=== PATIENT | female | born 1995 | race Caucasian/White ===

== ENCOUNTER 2019-01-28 08:25 | Emergency (ER) | payer OTHER ==
--- NOTE | 2019-01-28 09:07 | EDPHYS ---
Physician Documentation [facility] Name: Janet Pyle Age: 23 yrs Sex: Female : 1995 Arrival Date: 01/28/2019 Time: 08:27 Bed 13 Private MD: ED Physician Blair Pereira HPI: 01/28 08:59 This 23 yrs old Female presents to ER via Ambulatory with complaints of edyta Cough, Vomiting. 08:59 The patient or guardian reports airway noise, cough. Onset: The symptoms/episode edyta began/occurred 3 day(s) ago. Severity of symptoms: At their worst the symptoms were mild, in the emergency department the symptoms are unchanged. Modifying factors: The symptoms are alleviated by nothing, the symptoms are aggravated by nothing. Associated signs and symptoms: The patient has no apparent associated signs or symptoms. The patient has not experienced similar symptoms in the past. 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 - Social history:: Smoking status: Patient/guardian denies using tobacco. - Ebola Screening: : Patient denies exposure to infectious person Patient denies travel to an Ebola-affected area in the 21 days before illness onset. - Family history:: not pertinent. ROS: 08:59 Constitutional: Negative for fever, chills, and weight loss, Eyes: Negative for injury, edyta pain, redness, and discharge, ENT: Negative for injury, pain, and discharge, Neck: Negative for injury, pain, and swelling, Cardiovascular: Negative for chest pain, palpitations, and edema, Back: Negative for injury and pain, : Negative for injury, bleeding, discharge, and swelling, MS/Extremity: Negative for injury and deformity, Skin: Negative for injury, rash, and discoloration, Neuro: Negative for headache, weakness, numbness, tingling, and seizure, Psych: Negative for depression, anxiety, suicide ideation, homicidal ideation, and hallucinations, Allergy/Immunology: Negative for hives, rash, and allergies, Endocrine: Negative for neck swelling, polydipsia, polyuria, polyphagia, and marked weight changes, Hematologic/Lymphatic: Negative for swollen nodes, abnormal bleeding, and unusual bruising. 08:59 Respiratory: Positive for cough. Exam: 08:59 Constitutional: This is a well developed, well nourished patient who is awake, alert, edyta and in no acute distress. Head/Face: Normocephalic, atraumatic. Eyes: Pupils equal round and reactive to light, extra-ocular motions intact. Lids and lashes normal. Conjunctiva and sclera are non-icteric and not injected. Cornea within normal limits. Periorbital areas with no swelling, redness, or edema. ENT: Nares patent. No nasal discharge, no septal abnormalities noted. Tympanic membranes are normal and external auditory canals are clear. Oropharynx with no redness, swelling, or masses, exudates, or evidence of obstruction, uvula midline. Mucous membranes moist. Neck: Trachea midline, no thyromegaly or masses palpated, and no cervical lymphadenopathy. Supple, full range of motion without nuchal rigidity, or vertebral point tenderness. No Meningismus. Chest/axilla: Normal chest wall appearance and motion. Nontender with no deformity. No lesions are appreciated. Cardiovascular: Regular rate and rhythm with a normal S1 and S2. No gallops, murmurs, or rubs. Normal PMI, no JVD. No pulse deficits. Abdomen/GI: Soft, non-tender, with normal bowel sounds. No distension or tympany. No guarding or rebound. No evidence of tenderness throughout. Back: No spinal tenderness. No costovertebral tenderness. Full range of motion. Skin: Warm, dry with normal turgor. Normal color with no rashes, no lesions, and no evidence of cellulitis. MS/ Extremity: Pulses equal, no cyanosis. Neurovascular intact. Full, normal range of motion. Neuro: Awake and alert, GCS 15, oriented to person, place, time, and situation. Cranial nerves II-XII grossly intact. Motor strength 5/5 in all extremities. Sensory grossly intact. Cerebellar exam normal. Normal gait. Psych: Awake, alert, with orientation to person, place and time. Behavior, mood, and affect are within normal limits. 08:59 Respiratory: the patient does not display signs of respiratory distress, Respirations: normal, Breath sounds: rhonchi, that are mild, Respiratory rate: 14 Vital Signs: 08:31 BP 133 / 86; Pulse 76; Resp 14; Temp 97.4(TE); Pulse Ox 99% on R/A; Weight 90.72 kg; ss Height 5 ft. 3 in. (160.02 cm); Pain 7/10; 08:31 Body Mass Index 35.43 (90.72 kg, 160.02 cm) ss MDM: 08:33 Patient medically screened. edyta Administered Medications: : Drug: Zithromax 500 mg Route: PO; ph 09:29 Follow up: Response: No adverse reaction ph 09:28 Drug: Zofran 4 mg Route: PO; ph 09:29 Follow up: Response: No adverse reaction ph Disposition: 01/28/19 09:06 Discharged to Home. Impression: Cough, Nausea and vomiting, Bronchitis, not specified as acute or chronic. - Condition is Stable. - Discharge Instructions: Acute Bronchitis, Adult, Upper Respiratory Infection, Adult, Upper Respiratory Infection, Adult, [id number], Cough, Adult, [id number], Cough, Adult. - Prescriptions for Bromfed DM 2- 30-10 mg/5 mL Oral syrup - take 10 milliliter by ORAL route every 6 hours; 160 milliliter. Zofran 4 mg Oral Tablet - take 1 tablet by ORAL route every 12 hours As needed; 20 tablet. Zithromax Z- Oswald 250 mg Oral Tablet - take 1 tablet by ORAL route as directed for 5 days Day 1 - take two (2) tablets one time. Day 2, 3, 4 , 5 take one (1) tablet once daily.; 6 tablet. - Medication Reconciliation Form, Thank You Letter, Antibiotic Education, Prescription Opioid Use, Work release form form. - Follow up: Private Physician; When: 2 - 3 days; Reason: Recheck today's complaints, Continuance of care, Re-evaluation by your physician. Follow up: Yury Esquivel MD; When: 2 - 3 days; Reason: Recheck today's complaints, Re-evaluation by your physician. - Problem is new. - Symptoms have improved. Signatures: Blair Pereira MD MD cha Smirch, Shelby, RN RN ss Camelia Dixon RN RN ph Corrections: (The following items were deleted from the chart) 09:29 09:06 01/28/2019 09:06 Discharged to Home. Impression: Cough; Nausea and vomiting; ph Bronchitis, not specified as acute or chronic. Condition is Stable. Forms are Medication Reconciliation Form, Thank You Letter, Antibiotic Education, Prescription Opioid Use. Follow up: Private Physician; When: 2 - 3 days; Reason: Recheck today's complaints, Continuance of care, Re-evaluation by your physician. Follow up: Yury Esquivel; When: 2 - 3 days; Reason: Recheck today's complaints, Re-evaluation by your physician. Problem is new. Symptoms have improved. edyta
--- NOTE | 2019-01-28 09:07 | ER ---
Nurse's Notes [facility] Name: Janet Pyle Age: 23 yrs Sex: Female : 1995 Arrival Date: 01/28/2019 Time: 08:27 Bed 13 Private MD: Diagnosis: Cough;Nausea and vomiting;Bronchitis, not specified as acute or chronic Presentation: 01/28 08:29 Presenting complaint: Patient states: cough, fatigue and chest tightness x 1 week. N/V ss that began 4 days ago. Denies fever/ abd pain. Transition of care: patient was not received from another setting of care. Onset of symptoms was January 21, 2019. Risk Assessment: Do you want to hurt yourself or someone else? Patient reports no desire to harm self or others. Initial Sepsis Screen: Does the patient meet any 2 criteria? No. Patient's initial sepsis screen is negative. Does the patient have a suspected source of infection? No. Patient's initial sepsis screen is negative. Care prior to arrival: None. 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 - Social history:: Smoking status: Patient/guardian denies using tobacco. - Ebola Screening: : Patient denies exposure to infectious person Patient denies travel to an Ebola-affected area in the 21 days before illness onset. - Family history:: not pertinent. Screenin:45 Abuse screen: Denies threats or abuse. Denies injuries from another. Nutritional ph screening: No deficits noted. Tuberculosis screening: No symptoms or risk factors identified. Fall Risk None identified. Assessment: 08:45 General: Appears in no apparent distress. comfortable, obese, Behavior is calm, ph cooperative, appropriate for age, Denies fever. Pain: Complains of pain in chest. Neuro: Level of Consciousness is awake, alert, obeys commands, Oriented to person, place, time, situation. Cardiovascular: Capillary refill < 3 seconds in bilateral fingers Patient's skin is warm and dry. Respiratory: Reports cough that is pain with cough Airway is patent Respiratory effort is even, unlabored, Respiratory pattern is regular, symmetrical, Breath sounds are coarse in mediastinum. GI: Abdomen is round non-distended, Reports nausea, vomiting, Patient currently denies abdominal pain, diarrhea. Derm: Skin is intact, is healthy with good turgor, Skin is pink, warm \T\ dry. Vital Signs: 08:31 BP 133 / 86; Pulse 76; Resp 14; Temp 97.4(TE); Pulse Ox 99% on R/A; Weight 90.72 kg; Height 5 ft. 3 in. (160.02 cm); Pain 7/10; 08:31 Body Mass Index 35.43 (90.72 kg, 160.02 cm) ED Course: 08:27 Patient arrived in ED. as 08:30 Triage completed. 08:31 Arm band placed on right wrist. 08:33 Blair Pereira MD is Attending Physician. [facility] 08:38 Camelia Dixon, BANDAR is Primary Nurse. ph 08:45 Patient has correct armband on for positive identification. Bed in low position. Call ph light in reach. 09:05 Yury Esquivel MD is Referral Physician. edyta 09:29 No provider procedures requiring assistance completed. Patient did not have IV access ph during this emergency room visit. Administered Medications: 09:28 Drug: Zithromax 500 mg Route: PO; ph 09:29 Follow up: Response: No adverse reaction ph 09:28 Drug: Zofran 4 mg Route: PO; ph 09:29 Follow up: Response: No adverse reaction ph Outcome: 09:06 Discharge ordered by . edyta 09:29 Patient left the ED. ph 09:29 Discharged to home ambulatory. ph 09:29 Condition: good 09:29 Discharge instructions given to patient, Instructed on discharge instructions, follow up and referral plans. medication usage, Demonstrated understanding of instructions, follow-up care, medications. Signatures: Blair Pereira MD MD cha Martinez, Amelia as Smirch, Shelby, RN RN Camelia Dixon RN RN ph
[2019-01-28 09:33] VITALS: BP 133/86; TEMP 97.4; O2SAT 99
[2019-01-28] MEDS ORDERED: ONDANSETRON 4 MG (ODT) TAB ONE (09:36)
[2019-01-28] MEDS ORDERED: AZITHROMYCIN 250 MG TAB ONE (09:36)
== END 2019-01-28 09:29 | disposition home or self-care (01) ==
LOC: ER 08:25
DX: J40 Bronchitis, not specified as acute or chronic (principal); R11.2 Nausea with vomiting, unspecified
CPT/HCPCS: 99283

== ENCOUNTER 2019-06-20 10:24 | Emergency (ER) | payer OTHER ==
--- OUTSIDE RECORDS SUMMARY | 2019-06-20 10:25 | XMS REPORT ---
:1995 [facility] Address [address] [place] [address] Dr. Shah [address] [place] [id number] Care Team Providers Name Role Phone Unavailable Unavailable Unavailable Problems This patient has no known problems. Allergies, Adverse Reactions, Alerts This patient has no known allergies or adverse reactions. Medications This patient has no known medications.
[2019-06-20] MEDS ORDERED: LIDOCAINE 1% MPF 5 ML VIAL ONE (11:04)
[2019-06-20] MEDS ORDERED: LIDOCAINE 1% W/EPI 1:100,000 MDV 20 ML VIAL ONE (11:17)
--- NOTE | 2019-06-20 11:37 | ER ---
Nurse's Notes [facility] Name: Janet Pyle Age: 24 yrs Sex: Female : 1995 Arrival Date: 06/20/2019 Time: 10:26 Bed 18 Private MD: Diagnosis: Laceration without foreign body of lower leg-right Presentation: 06/20 10:33 Presenting complaint: Patient states: cut R lower leg on mirror shard. Transition of care: patient was not received from another setting of care. Complicating Factors: There are no complicating factors for this patient. Onset of symptoms was June 20, 2019 at 10:00. Risk Assessment: Do you want to hurt yourself or someone else? Patient reports no desire to harm self or others. Initial Sepsis Screen: Does the patient meet any 2 criteria? No. Patient's initial sepsis screen is negative. Does the patient have a suspected source of infection? No. Patient's initial sepsis screen is negative. Care prior to arrival: None. 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 - Social history:: Smoking status: Patient/guardian denies using tobacco. - Ebola Screening: : Patient negative for fever greater than or equal to 101.5 degrees Fahrenheit, and additional compatible Ebola Virus Disease symptoms Patient denies exposure to infectious person Patient denies travel to an Ebola-affected area in the 21 days before illness onset No symptoms or risks identified at this time. Screenin:00 Abuse screen: Denies threats or abuse. Denies injuries from another. Nutritional hb screening: No deficits noted. Tuberculosis screening: No symptoms or risk factors identified. Fall Risk None identified. Assessment: 10:50 General: Appears in no apparent distress. Behavior is calm, cooperative. Pain: Pain hb currently is 5 out of 10 on a pain scale. Neuro: Level of Consciousness is awake, alert, obeys commands, Oriented to person, place, time, situation. Cardiovascular: Capillary refill < 3 seconds Patient's skin is warm and dry. Respiratory: Airway is patent Respiratory effort is even, unlabored, Respiratory pattern is regular, symmetrical. GI: No signs and/or symptoms were reported involving the gastrointestinal system. : No signs and/or symptoms were reported regarding the genitourinary system. EENT: No signs and/or symptoms were reported regarding the EENT system. Derm: Skin is pink, warm \T\ dry. Musculoskeletal: No signs and/or symptoms reported regarding the musculoskeletal system. Injury Description: Laceration sustained to right lower medial leg is was sustained 30-60 minutes ago. is bleeding a small amount. Vital Signs: 10:34 BP 125 / 78; Pulse 68; Resp 16; Temp 98.2; Pulse Ox 99% on R/A; Weight 86.18 kg; Height ch 5 ft. 3 in. (160.02 cm); Pain 5/10; 10:34 Body Mass Index 33.66 (86.18 kg, 160.02 cm) ED Course: 10:26 Patient arrived in ED. as 10:34 Triage completed. ch 10:34 Arm band placed on left wrist. Patient placed in an exam room, on a stretcher. 10:35 Blair aCmacho PA is PHCP. cp 10:35 Olman Zhou MD is Attending Physician. cp 10:54 Nanette Salazar, BANDAR is Primary Nurse. hb 11:00 Patient has correct armband on for positive identification. Bed in low position. Call hb light in reach. Side rails up X 1. 11:39 No provider procedures requiring assistance completed. Patient did not have IV access hb during this emergency room visit. Administered Medications: 11:03 Drug: Lidocaine-Epinephrine -1%: (1:100,000) 5 ml {Note: by MADONNA Pinto.} Volume: 20 ml; hb Route: Infiltration; 11:37 Follow up: Response: No adverse reaction hb Outcome: 11:35 Discharge ordered by . cp 11:47 Patient left the ED. hb Signatures: Lisa Juarez, RN RN Diya Mcwilliams as Blair Camacho PA PA cp Baxter, Heather, RN RN hb
--- NOTE | 2019-06-20 11:37 | EDPHYS ---
Physician Documentation [facility] Name: Janet Pyle Age: 24 yrs Sex: Female : 1995 Arrival Date: 06/20/2019 Time: 10:26 Bed 18 Private MD: ED Physician Olman Zhou HPI: 06/20 10:45 This 24 yrs old Female presents to ER via Ambulatory with complaints of cp Laceration To Foot. 10:45 The patient has a laceration occurred at home, and there are no complicating factors. cp The laceration(s) is(are) located on the medial aspect of right lower leg. Onset: The symptoms/episode began/occurred just prior to arrival. Associated signs and symptoms: Pertinent negatives: heavy bleeding, numbness distal to injury, suspected foreign body. Patient reports cutting right lower leg on sharp edge of broken glass. 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 - Social history:: Smoking status: Patient/guardian denies using tobacco. - Ebola Screening: : Patient negative for fever greater than or equal to 101.5 degrees Fahrenheit, and additional compatible Ebola Virus Disease symptoms Patient denies exposure to infectious person Patient denies travel to an Ebola-affected area in the 21 days before illness onset No symptoms or risks identified at this time. ROS: 10:50 Constitutional: Negative for body aches, chills, fever, poor PO intake. cp 10:50 Cardiovascular: Negative for chest pain. cp 10:50 Respiratory: Negative for cough, shortness of breath. 10:50 Abdomen/GI: Negative for abdominal pain, nausea and vomiting, diarrhea. 10:50 Skin: Positive for laceration(s), of the medial aspect of right lower leg. 10:50 All other systems are negative. Exam: 10:55 Constitutional: The patient appears in no acute distress, alert, awake, non-toxic, well cp developed, well nourished. 10:55 Head/Face: Normocephalic, atraumatic. cp 10:55 Skin: injury, laceration(s), the wound is approximately 4 cm(s), of the medial aspect of right lower leg, that can be described as clean, no foreign body, linear, with mild bleeding. Vital Signs: 10:34 BP 125 / 78; Pulse 68; Resp 16; Temp 98.2; Pulse Ox 99% on R/A; Weight 86.18 kg; Height ch 5 ft. 3 in. (160.02 cm); Pain 5/10; 10:34 Body Mass Index 33.66 (86.18 kg, 160.02 cm) ch Laceration: 11:34 Wound Repair of 4cm ( 1.6in ) subcutaneous laceration to right lower leg. Linear cp shaped.. Distal neuro/vascular/tendon intact. Anesthesia: Wound infiltrated with 5 mls of 1% lidocaine w/ Epi. Wound prep: Moderate cleansing by me, Wound irrigation by me. Skin closed with 4 4-0 Prolene using interrupted sutures and sterile technique. Dressed with Bacitracin, 4x4's. Patient tolerated well. MDM: 10:37 Patient medically screened. cp 11:34 Data reviewed: vital signs, nurses notes, and as a result, I will discharge patient. cp 11:34 Differential diagnosis: superficial laceration, tendon injury, vascular injury. cp Counseling: I had a detailed discussion with the patient and/or guardian regarding: the historical points, exam findings, and any diagnostic results supporting the discharge/admit diagnosis, the presence of at least one elevated blood pressure reading (>120/80) during this emergency department visit, to return to the emergency department if symptoms worsen or persist or if there are any questions or concerns that arise at home. Response to treatment: the patient's symptoms have markedly improved after treatment, and as a result, I will discharge patient. 06/20 10:59 Order name: Dressing - Wound; Complete Time: 11:37 cp 06/20 10:59 Order name: Gloves, Sterile; Complete Time: 11: cp 06/20 10:59 Order name: Setup Suture Tray; Complete Time: 11:05 cp Administered Medications: 11:03 Drug: Lidocaine-Epinephrine -1%: (1:100,000) 5 ml {Note: by MADONNA Pinto.} Volume: 20 ml; hb Route: Infiltration; 11:37 Follow up: Response: No adverse reaction hb Disposition: 12:00 Chart complete. cp 16:20 Co-signature as Attending Physician, Olman Zhou MD. rn Disposition: 06/20/19 11:35 Discharged to Home. Impression: Laceration without foreign body of lower leg - right. - Condition is Stable. - Discharge Instructions: Laceration Care, Adult. - Medication Reconciliation Form, Thank You Letter, Antibiotic Education, Prescription Opioid Use, Work release form form. - Follow up: Private Physician; When: 7 - 10 days; Reason: Staple/Suture removal. - Problem is new. - Symptoms have improved. Signatures: Lisa Juarez RN RN Olman Calix MD MD rn Blair Camacho PA PA cp Baxter, Heather, RN RN Corrections: (The following items were deleted from the chart) 11:47 11:35 06/20/2019 11:35 Discharged to Home. Impression: Laceration without foreign body hb of lower leg - right. Condition is Stable. Forms are Work release form, Medication Reconciliation Form, Thank You Letter, Antibiotic Education, Prescription Opioid Use. Follow up: Private Physician; When: 7 - 10 days; Reason: Staple/Suture removal. Problem is new. Symptoms have improved. cp
[2019-06-20 11:55] VITALS: BP 125/78; TEMP 98.2; O2SAT 99
== END 2019-06-20 11:47 | disposition home or self-care (01) ==
LOC: ER 10:24
PROC: 0JQN0ZZ Repair Right Lower Leg Subcutaneous Tissue and Fascia, Open Approach (ICD-10-PCS; principal; 2019-06-20)
DX: S81.811A Laceration without foreign body, right lower leg, initial encounter (principal); W25.XXXA Contact with sharp glass, initial encounter; Y93.9 Activity, unspecified; Y92.009 Unspecified place in unspecified non-institutional (private) residence as the place of occurrence of the external cause
CPT/HCPCS: 99282

== ENCOUNTER 2019-06-28 15:06 | Emergency (ER) | payer OTHER ==
--- OUTSIDE RECORDS SUMMARY | 2019-06-28 15:08 | XMS REPORT ---
:1995 Author Organization [facility] Address [address] [place] [address] Dr. Shah [address] [place] [id number] Care Team Providers Name Role Phone Unavailable Unavailable Unavailable Problems This patient has no known problems. Allergies, Adverse Reactions, Alerts This patient has no known allergies or adverse reactions. Medications This patient has no known medications.
--- NOTE | 2019-06-28 15:44 | ER ---
Nurse's Notes [facility] Name: Janet Pyle Age: 24 yrs Sex: Female : 1995 Arrival Date: 06/28/2019 Time: 15:09 Bed 9 Private MD: Diagnosis: Encounter for removal of sutures Presentation: 06/28 15:21 Presenting complaint: Sutures to right inner ankle 06/20, here for removal. Transition of hb care: patient was not received from another setting of care. Onset of symptoms was June 28, 2019. Risk Assessment: Do you want to hurt yourself or someone else? Patient reports no desire to harm self or others. Initial Sepsis Screen: Does the patient meet any 2 criteria? No. Patient's initial sepsis screen is negative. Does the patient have a suspected source of infection? No. Patient's initial sepsis screen is negative. Care prior to arrival: None. 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 - Social history:: Smoking status: Patient/guardian denies using tobacco. - Ebola Screening: : No symptoms or risks identified at this time. Screenin:50 Abuse screen: Denies threats or abuse. Nutritional screening: No deficits noted. aa5 Tuberculosis screening: No symptoms or risk factors identified. Fall Risk None identified. Assessment: 15:55 General: Appears comfortable, Behavior is calm, cooperative. Pain: Denies pain. Neuro: aa5 Level of Consciousness is awake, alert, obeys commands, Oriented to person, place, time, situation. Cardiovascular: Patient's skin is warm and dry. Respiratory: Airway is patent Respiratory effort is even, unlabored, Respiratory pattern is regular, symmetrical. GI: No signs and/or symptoms were reported involving the gastrointestinal system. : No signs and/or symptoms were reported regarding the genitourinary system. EENT: No signs and/or symptoms were reported regarding the EENT system. Derm: Skin is pink, warm \T\ dry. 4 sutures noted to right lower leg, no s/s of infection noted, edges well approximated. Musculoskeletal: Range of motion: intact in all extremities. 15:57 Reassessment: 4 sutures removed from right lower leg, pt tolerated well, dressed with aa5 Neosporin. . Vital Signs: 15:22 BP 110 / 81; Pulse 68; Resp 16; Temp 98.3; Pulse Ox 100% on R/A; Weight 81.65 kg; hb Height 5 ft. 3 in. (160.02 cm); Pain 0/10; 15:22 Body Mass Index 31.89 (81.65 kg, 160.02 cm) hb ED Course: 15:09 Patient arrived in ED. rg4 15:20 Blair Camacho PA is PHCP. cp 15:20 Olman Zhou MD is Attending Physician. cp 15:21 Triage completed. hb 15:22 Arm band placed on. hb 15:50 Patient has correct armband on for positive identification. aa5 15:50 No provider procedures requiring assistance completed. Patient did not have IV access aa5 during this emergency room visit. 15:54 Nicole Soni, RN is Primary Nurse. aa5 Administered Medications: No medications were administered Outcome: 15:43 Discharge ordered by MD. cp 15:59 Discharged to home ambulatory. aa5 15:59 Condition: stable 15:59 Discharge instructions given to patient, Instructed on discharge instructions, follow up and referral plans. wound care, Demonstrated understanding of instructions, follow-up care, wound care. 16:00 Patient left the ED. aa5 Signatures: Nicole Soni, RN RN aa5 Blair Camacho PA PA cp Baxter, Heather, RN RN Candida Dooley rg4 Corrections: (The following items were deleted from the chart) 16:45 16:08 Patient left the ED. aa5 aa5
--- NOTE | 2019-06-28 15:44 | EDPHYS ---
Physician Documentation [facility] Name: Janet Pyle Age: 24 yrs Sex: Female : 1995 Arrival Date: 06/28/2019 Time: 15:09 Bed 9 Private MD: ED Physician Olman Zhou HPI: 06/28 15:40 This 24 yrs old Female presents to ER via Ambulatory with complaints of cp Suture Removal. 15:40 The patient has sutures on the right lower leg. cp 15:40 Previous treatment: The patient was initially treated on June 20, 2019, the care cp was rendered at [facility], Treatment type: The patient's original treatment included sutures. Sutures/harinder progress: The patient has no c/o's. The wound is well-healing with no redness, swelling, discharge, or dehiscence reported. 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 - Social history:: Smoking status: Patient/guardian denies using tobacco. - Ebola Screening: : No symptoms or risks identified at this time. ROS: 15:41 Constitutional: Negative for body aches, chills, fever, poor PO intake. cp 15:41 Eyes: Negative for injury, pain, redness, and discharge. cp 15:41 Cardiovascular: Negative for chest pain. 15:41 Respiratory: Negative for cough, wheezing. 15:41 Abdomen/GI: Negative for abdominal pain, nausea, vomiting, and diarrhea. 15:41 Skin: Positive for laceration(s), of the right lower leg, Negative for abscesses, cellulitis. 15:41 All other systems are negative. Exam: 15:42 Constitutional: The patient appears in no acute distress, alert, awake, non-toxic, well cp developed, well nourished. 15:42 Head/Face: Normocephalic, atraumatic. cp 15:42 Skin: Wound recheck: Suture laceration closure: the wound is healing well, the edges are well approximated, no evidence of dehiscence, no drainage, no erythema, no swelling. Vital Signs: 15:22 BP 110 / 81; Pulse 68; Resp 16; Temp 98.3; Pulse Ox 100% on R/A; Weight 81.65 kg; hb Height 5 ft. 3 in. (160.02 cm); Pain 0/10; 15:22 Body Mass Index 31.89 (81.65 kg, 160.02 cm) hb MDM: 15:26 Patient medically screened. cp 15:43 Data reviewed: vital signs, nurses notes. cp 15:43 Counseling: I had a detailed discussion with the patient and/or guardian regarding: the cp historical points, exam findings, and any diagnostic results supporting the discharge/admit diagnosis, to return to the emergency department if symptoms worsen or persist or if there are any questions or concerns that arise at home. Response to treatment: the patient's symptoms have markedly improved after treatment. 06/28 15:43 Order name: Suture Removal; Complete Time: 16:08 cp Administered Medications: No medications were administered Disposition: 19:02 Co-signature as Attending Physician, Olman Zhou MD. rn Disposition: 06/28/19 15:43 Discharged to Home. Impression: Encounter for removal of sutures. - Condition is Stable. - Discharge Instructions: Suture Removal, Care After. - Medication Reconciliation Form, Thank You Letter, Antibiotic Education, Prescription Opioid Use form. - Follow up: Private Physician; When: 2 - 3 days; Reason: Worsening of condition. - Problem is new. - Symptoms have improved. Signatures: Olman Zhou MD MD rn Calderon, Audri, RN RN aa5 Blair Camacho PA PA cp Nanette Salazar RN RN Corrections: (The following items were deleted from the chart) 16:08 15:43 06/28/2019 15:43 Discharged to Home. Impression: Encounter for removal of aa5 sutures. Condition is Stable. Forms are Medication Reconciliation Form, Thank You Letter, Antibiotic Education, Prescription Opioid Use. Follow up: Private Physician; When: 2 - 3 days; Reason: Worsening of condition. Problem is new. Symptoms have improved. cp
[2019-06-28 16:17] VITALS: BP 110/81; TEMP 98.3; O2SAT 100
== END 2019-06-28 16:08 | disposition home or self-care (01) ==
LOC: ER 15:06
DX: Z48.02 Encounter for removal of sutures (principal)
CPT/HCPCS: 99281

== ENCOUNTER 2020-08-15 14:03 | Emergency (ER) | payer OTHER ==
--- OUTSIDE RECORDS SUMMARY | 2020-08-15 14:05 | XMS REPORT | Continuity of Care Document ---
:1995 Author Organization [facility] t Address [address] [place] [address] Care Team Providers Name Role Phone Visit, Nurse Attending Clinician Unavailable Emily Cook Attending Clinician Mckayla Ann Attending Clinician Po, [facility] Attending Clinician Unavailable Problems This patient has no known problems. Allergies, Adverse Reactions, Alerts This patient has no known allergies or adverse reactions. Medications This patient has no known medications. Procedures This patient has no known procedures. Encounters Start End Encounter Admission Attending Care Care Encounter Source Date/Time Date/Time Type Type Clinicians Facility Department ID 2020-04-21 2020-04-21 Nurse Visit, [facility] [id number] 09:44:13 09:59:13 [facility] [id number] Nurse [facility] [id number] MATERNAL [id number] & CHILD 107 [facility] 2020-01-30 2020-01-30 Angelia Rose RIMIKAELA [id number] 00:00:00 00:00:00 Kirstie Diaz [employer] [id number] [facility] [id number] MATERNAL [id number] & CHILD 107 [facility] 2020-01-17 2020-01-17 Telephone Graciela RIMIKAELA [id number] 00:00:00 00:00:00 [facility] [id number] [place] [id number] [facility] [id number] Primary & 370 Specialty Care 2020-01-17 2020-01-17 Telephone Graciela, [facility] [id number] 00:00:00 00:00:00 Tonja [facility] [id number] [place] [id number] [facility] [id number] Primary & 370 Specialty Care 2020-01-15 2020-01-15 Urgent Pob1, Acute [facility] [id number] 10:46:12 11:06:12 Care Care [facility] [id number] [place] [id number] Professio [id number] nal [address] 2020-01-15 2020-01-15 Telephone Pob1, Acute [facility] [id number] 00:00:00 00:00:00 Care [facility] [id number] [place] [id number] Professio [phone] nal 044 Office Building [facility] 2020-01-07 2020-01-07 [facility]phone [facility] [id number] 00:00:00 00:00:00 Kirstie N [facility] [employer] [id number] REGIONAL [id number] MATERNAL [id number] & CHILD 107 [facility] 2020-01-05 2020-01-05 [facility]phone [facility] [id number] 00:00:00 00:00:00 Kirstie N [employer] [id number] [facility] [id number] MATERNAL [phone] & CHILD 107 [facility] 2019-12-11 2019-12-11 Telephone [facility] [id number] 00:00:00 00:00:00 Kirstie N [employer] [id number] REGIONAL [id number] MATERNAL [id number] & CHILD 107 [facility] 2019-12-02 2019-12-02 Telephone [facility] [id number] 00:00:00 00:00:00 Kirstie N [employer] [id number] REGIONAL [id number] MATERNAL [id number] & CHILD 107 [facility] 2019-11-29 2019-11-29 Office ITALO Rose [id number] 13:03:57 14:20:38 Visit Kirstie Diaz [employer] [id number] [facility] [id number] MATERNAL [id number] & CHILD 107 [facility] Results This patient has no known results.
[2020-08-15] MEDS ORDERED: KETOROLAC 30 MG/ML INJ ONE (15:37)
--- NOTE | 2020-08-15 15:40 | ER ---
Nurse's Notes [facility] Name: Janet Pyle Age: 25 yrs Sex: Female : 1995 Arrival Date: 08/15/2020 Time: 14:04 Bed 2 Private MD: Diagnosis: Dorsalgia, unspecified Presentation: 08/15 14:34 Chief complaint: Patient states: generalized back pain that radiates under right breast ss and up to head that causes a headache. Pain began yesterday. Coronavirus screen: Client denies travel out of the [place] in the last 14 days. Ebola Screen: Patient denies exposure to infectious person. Patient denies travel to an Ebola-affected area in the 21 days before illness onset. Initial Sepsis Screen: Does the patient meet any 2 criteria? No. Patient's initial sepsis screen is negative. Does the patient have a suspected source of infection? No. Patient's initial sepsis screen is negative. Risk Assessment: Do you want to hurt yourself or someone else? Patient reports no desire to harm self or others. Onset of symptoms was August 14, 2020. 14:34 Method Of Arrival: Ambulatory ss 14:34 Acuity: TORI 3 ss Historical: - Allergies: 14:57 NKDA; ss - Home Meds: 14:57 None [Active]; ss - PMHx: 14:57 None; ss - PSHx: 14:57 None; ss - Immunization history:: Adult Immunizations up to date. - Social history:: Smoking status: Patient denies any tobacco usage or history of. Screenin:34 Abuse screen: Denies threats or abuse. Denies injuries from another. Nutritional ss screening: No deficits noted. Tuberculosis screening: Never had TB. Fall Risk None identified. Vital Signs: 14:34 BP 116 / 67; Pulse 87; Resp 14; Temp 97.4(TE); Pulse Ox 100% on R/A; Weight 86.18 kg; ss Height 5 ft. 3 in. (160.02 cm); Pain 7/10; 15:34 BP 111 / 84; Pulse 74; Resp 15; Temp 97.6(O); Pulse Ox 100% on R/A; mh5 14:34 Body Mass Index 33.66 (86.18 kg, 160.02 cm) ED Course: 14:04 Patient arrived in ED. ag5 14:13 Blair Camacho PA is PHCP. cp 14:13 Blair Pereira MD is Attending Physician. cp 14:34 Amanda Coker RN is Primary Nurse. ss 14:57 Triage completed. ss 14:57 Arm band placed on right wrist. ss 15:14 XRAY Chest (1 view) In Process Unspecified. EDMS 15:34 Patient has correct armband on for positive identification. Bed in low position. Call mh5 light in reach. Side rails up X 1. Warm blanket given. Pulse ox on. NIBP on. 15:58 No provider procedures requiring assistance completed. Patient did not have IV access ss during this emergency room visit. Administered Medications: 15:30 Drug: TORadol 60 mg Route: IM; Site: left gluteus; ss 16:00 Follow up: Response: No adverse reaction; Pain is decreased ss Outcome: 15:39 Discharge ordered by MD. cp 15:58 Discharged to home ambulatory. ss 15:58 Condition: improved 15:58 Discharge instructions given to patient, family, Instructed on discharge instructions, follow up and referral plans. medication usage, Demonstrated understanding of instructions, follow-up care, medications, Prescriptions given X 2. 16:00 Patient left the ED. ss Signatures: Dispatcher [employer] [facility] Amanda Coker RN RN Blair Camacho PA PA cp Martinez, Maria 5 Alma Delia, [facility]
--- NOTE | 2020-08-15 15:40 | EDPHYS ---
Physician Documentation [facility] Name: Janet Pyle Age: 25 yrs Sex: Female : 1995 Arrival Date: 08/15/2020 Time: 14:04 Bed 2 Private MD: ED Physician Blair Pereira HPI: 08/15 14:36 This 25 yrs old Female presents to ER via Unassigned with complaints of Back cp Pain. 14:36 The patient presents with pain that is acute, with no known mechanism of injury. The cp symptoms are located in the "all over". Onset: The symptoms/episode began/occurred yesterday. The pain radiates to the left side of chest below breast. Associated signs and symptoms: Pertinent positives: shortness of breath, Pertinent negatives: abdominal pain, headache, numbness, tingling, weakness. The problem was sustained from unknown cause. Historical: - Allergies: 14:57 NKDA; ss - Home Meds: 14:57 None [Active]; ss - PMHx: 14:57 None; ss - PSHx: 14:57 None; ss - Immunization history:: Adult Immunizations up to date. - Social history:: Smoking status: Patient denies any tobacco usage or history of. ROS: 14:40 Constitutional: Negative for body aches, chills, fever, poor PO intake. cp 14:40 Eyes: Negative for injury, pain, redness, and discharge. cp 14:40 ENT: Negative for ear pain, sore throat, difficulty swallowing, difficulty handling secretions. 14:40 Neck: Negative for pain with movement, pain at rest, stiffness. 14:40 Cardiovascular: Negative for chest pain, edema, palpitations. 14:40 Respiratory: Negative for cough, shortness of breath, wheezing. 14:40 Abdomen/GI: Negative for abdominal pain, nausea, vomiting, and diarrhea. 14:40 Back: Positive for pain at rest, pain with movement, of the "all over". 14:40 : Negative for urinary symptoms. 14:40 Skin: Negative for rash. 14:40 Neuro: Positive for headache, Negative for altered mental status, weakness. 14:40 All other systems are negative. Exam: 14:45 Constitutional: The patient appears in no acute distress, alert, awake, comfortable, cp non-toxic, well developed, well nourished. 14:45 Head/Face: Normocephalic, atraumatic. cp 14:45 Eyes: Periorbital structures: appear normal, Conjunctiva: normal, no exudate, no injection, Sclera: no appreciated abnormality, Lids and lashes: appear normal, bilaterally. 14:45 ENT: External ear(s): are unremarkable, Nose: is normal, Mouth: Lips: moist, Oral mucosa: moist, Posterior pharynx: is normal, airway is patent. 14:45 Neck: ROM/movement: is normal, is supple, without pain, no range of motions limitations. 14:45 Chest/axilla: Inspection: normal, Palpation: is normal, no crepitus, no tenderness. 14:45 Cardiovascular: Rate: normal, Rhythm: regular, Edema: is not appreciated, JVD: is not appreciated. 14:45 Respiratory: the patient does not display signs of respiratory distress, Respirations: normal, no use of accessory muscles, no retractions, labored breathing, is not present, Breath sounds: are clear throughout, no decreased breath sounds. 14:45 Abdomen/GI: Exam negative for discomfort, distension, guarding, Inspection: abdomen appears normal. 14:45 Back: pain, that is moderate, of the diffuse, ROM is normal, muscle spasm, is not present. 14:45 Neuro: Orientation: to person, place \\T\\ time. Mentation: is normal, Motor: moves all fours, strength is normal, Sensation: is normal, Gait: is steady, at a normal pace, without difficulty. Vital Signs: 14:34 BP 116 / 67; Pulse 87; Resp 14; Temp 97.4(TE); Pulse Ox 100% on R/A; Weight 86.18 kg; ss Height 5 ft. 3 in. (160.02 cm); Pain 7/10; 15:34 BP 111 / 84; Pulse 74; Resp 15; Temp 97.6(O); Pulse Ox 100% on R/A; mh5 14:34 Body Mass Index 33.66 (86.18 kg, 160.02 cm) ss MDM: 14:22 Patient medically screened. edyta 14:45 Differential diagnosis: Pyelonephritis Ureterolithiasis strain, muscle spasm. cp 15:19 Test interpretation: by ED physician or midlevel provider: chest xray negative for cp infiltrates. 15:38 Data reviewed: vital signs, nurses notes, radiologic studies, plain films. 15:38 Counseling: I had a detailed discussion with the patient and/or guardian regarding: the cp historical points, exam findings, and any diagnostic results supporting the discharge/admit diagnosis, radiology results, the need for outpatient follow up, a family practitioner, to return to the emergency department if symptoms worsen or persist or if there are any questions or concerns that arise at home. Response to treatment: the patient's symptoms have mildly improved after treatment, and as a result, I will discharge patient. 08/15 14:36 Order name: XRAY Chest (1 view) 08/15 14:36 Order name: Urine Dipstick-Ancillary (obtain specimen); Complete Time: 15:23 cp 08/15 14:36 Order name: Urine Test (obtain specimen); Complete Time: 15:23 cp Administered Medications: 15:30 Drug: TORadol 60 mg Route: IM; Site: left gluteus; 16:00 Follow up: Response: No adverse reaction; Pain is decreased ss Disposition: 08/16 14:40 Co-signature as Attending Physician, Blair Pereira MD I agree with the assessment and edyta plan of care. Disposition: 08/15/20 15:39 Discharged to Home. Impression: Dorsalgia, unspecified. - Condition is Stable. - Discharge Instructions: Back Pain, Adult. - Prescriptions for Cyclobenzaprine 10 mg Oral Tablet - take 1 tablet by ORAL route every 8 hours As needed no driving while taking medication; 20 tablet. Diclofenac Sodium 75 mg Oral Tablet Sustained Release - take 1 tablet by ORAL route 2 times per day; 30 tablet. - Work release form, Medication Reconciliation Form, Thank You Letter, Antibiotic Education, Prescription Opioid Use form. - Follow up: Private Physician; When: 2 - 3 days; Reason: Recheck today's complaints. - Problem is new. - Symptoms have improved. Signatures: Dispatcher [employer] Blair Toney MD MD cha Smirch, Shelby, RN RN ss Blair Camacho PA PA cp Corrections: (The following items were deleted from the chart) 08/15 14:59 14:45 Chest Single View ordered. [facility] 16:00 15:39 08/15/2020 15:39 Discharged to Home. Impression: Dorsalgia, unspecified. ss Condition is Stable. Forms are Medication Reconciliation Form, Thank You Letter, Antibiotic Education, Prescription Opioid Use. Follow up: Private Physician; When: 2 - 3 days; Reason: Recheck today's complaints. Problem is new. Symptoms have improved. cp
--- NOTE | 2020-08-15 15:45 | RAD REPORT ---
EXAM DESCRIPTION: [place] Single View08/15/2020 3:13 pm CLINICAL HISTORY: Shortness of breath COMPARISON: 2015 FINDINGS: The lungs appear clear of acute infiltrate. The heart is normal size IMPRESSION: No acute abnormalities displayed
[2020-08-15 16:15] VITALS: O2SAT 100
[2020-08-15 16:17] VITALS: BP 111/84; TEMP 97.6
== END 2020-08-15 16:00 | disposition home or self-care (01) ==
LOC: ER 14:03
DX: M54.9 Dorsalgia, unspecified (principal)
CPT/HCPCS: 71045; 96372; 99284

== ENCOUNTER 2021-05-01 15:46 | Emergency (ER) | payer OTHER ==
--- OUTSIDE RECORDS SUMMARY | 2021-05-01 15:50 | XMS REPORT | Continuity of Care Document ---
:[address] [facility] t Address [address] [place] [address] Care Team Providers Name Role Phone Elisabet Cortes Attending Clinician Cricket Attending Clinician [phone] Problems This patient has no known problems. Allergies, Adverse Reactions, Alerts This patient has no known allergies or adverse reactions. Medications This patient has no known medications. Procedures This patient has no known procedures. Encounters Start End Encounter Admission Attending Care Care Encounter Source Date/Time Date/Time Type Type Clinicians Facility Department ID 2021-02-08 2021-02-08 Office ITALO Laurent [id number] 15:20:35 16:19:56 Visit Melanie Bhandari BODY PRESS OPERATOR [id number] [facility] [id number] MATERNAL [id number] & CHILD [address] [place] [address] 2021-01-27 2021-01-27 [facility] [id number] 00:00:00 00:00:00 Tanya [id number] 2021-01-27 2021-01-27 [facility] [id number] 00:00:00 00:00:00 Tanya [id number] 2021-01-27 2021-01-27 [facility] [id number] 00:00:00 00:00:00 Tanya [id number] 2021-01-04 2021-01-04 Outpatient [facility], [facility] [id number] 00:00:00 00:00:00 Tanya [id number] Results This patient has no known results.
[2021-05-01] MEDS ORDERED: HYDROCODONE/APAP 5/325 MG TAB ONE (18:09)
--- NOTE | 2021-05-01 18:31 | RAD REPORT ---
EXAM DESCRIPTION: RAD - Knee Right 3 View - 05/01/2021 6:07 pm CLINICAL HISTORY: PAIN COMPARISON: No comparisons FINDINGS: No right knee fracture malalignment. No knee effusion IMPRESSION: No knee fracture identified.
--- NOTE | 2021-05-01 18:42 | ER ---
Nurse's Notes [facility] Name: Janet Pyle Age: 26 yrs Sex: Female : 1995 Arrival Date: 05/01/2021 Time: 15:49 Bed Waiting Private MD: Diagnosis: Unspecified internal derangement of right knee Presentation: 05/01 15:57 Chief complaint: Patient states: R knee pain since last night after sliding into 2nd ll1 during a softball game. PMS intact. Coronavirus screen: Client denies travel out of the [place] in the last 14 days. At this time, the client does not indicate any symptoms associated with coronavirus-19. Ebola Screen: Patient denies travel to an Ebola-affected area in the 21 days before illness onset. Initial Sepsis Screen: Does the patient meet any 2 criteria? No. Patient's initial sepsis screen is negative. Does the patient have a suspected source of infection? Yes: Bone or joint infection. Risk Assessment: Do you want to hurt yourself or someone else? Patient reports no desire to harm self or others. Onset of symptoms was April 30, 2021. 15:57 Method Of Arrival: Ambulatory ll1 15:57 Acuity: TORI 4 ll1 Triage Assessment: 16:00 General: Appears in no apparent distress. Behavior is calm, cooperative, appropriate ll1 for age. Pain: Complains of pain in R knee Quality of pain is described as aching, Aggravated by increased activity. Musculoskeletal: Circulation, motion, and sensation intact. Capillary refill < 3 seconds, Tenderness present in R knee Reports pain in R knee. Injury Description: Bruise. CREDIT INTERN: 19:00 LMP N/A - control method ll1 Historical: - Allergies: 15:56 No Known Drug Allergies; ll1 - PMHx: 15:56 None; ll1 - PSHx: 15:56 None; ll1 - Immunization history:: Client reports having NOT received the Covid vaccine. Flu vaccine is up to date. - Social history:: Smoking status: Patient denies any tobacco usage or history of. Screenin:43 Abuse screen: Denies threats or abuse. Nutritional screening: No deficits noted. ll1 Tuberculosis screening: No symptoms or risk factors identified. 17:44 Fall Risk Secondary diagnosis (15 points) impaired mobility, Gait- Impaired (20 pts.). ll1 Total Kramer Fall Scale indicates Low Risk Score (25-44 pts). Fall prevention measures have been instituted. Side Rails Up X 2 Frequent Obs/Assesments occuring As available Patient and Family Educated on Fall Prevention Program and strategies. Assessment: 17:44 Reassessment: No changes from previously documented assessment. Patient and/or family ll1 updated on plan of care and expected duration. Pain level reassessed. Patient is alert, oriented x 3, equal unlabored respirations, skin warm/dry/pink. 18:59 Musculoskeletal: Circulation, motion, and sensation intact. Capillary refill < 3 ll1 seconds. Vital Signs: 15:57 BP 125 / 77; Pulse 76; Resp 17; Temp 97.4; Pulse Ox 100% ; Weight 90.72 kg; Height 5 ll1 ft. 3 in. (160.02 cm); Pain 9/10; 15:57 Body Mass Index 35.43 (90.72 kg, 160.02 cm) ll1 ED Course: 15:49 Patient arrived in ED. mr 15:56 Arm band placed on. ll1 15:58 Triage completed. ll1 15:59 Quinn Gould NP is PHCP. pm1 15:59 Olman Zhou MD is Attending Physician. pm1 17:42 Kenneth Multani, BANDAR is Primary Nurse. ll1 17:43 Patient has correct armband on for positive identification. Bed in low position. Call ll1 light in reach. Side rails up X 1. Cardiac monitoring not applicable on this patient. 18:07 Knee Right 3 View XRAY In Process Unspecified. EDMS 18:59 Knee immobilizer applied on right knee. ll1 19:00 No provider procedures requiring assistance completed. Patient did not have IV access ll1 during this emergency room visit. Administered Medications: 17:49 Drug: HYDROcodone-acetaminophen 5 mg-325 mg 1 tabs Route: PO; ll1 18:59 Follow up: Response: No adverse reaction; Pain is decreased; RASS: Alert and Calm (0) ll1 Outcome: 18:42 Discharge ordered by . rn 19:00 Discharged to home ambulatory. ll1 19:00 Condition: stable 19:00 Discharge instructions given to patient, Instructed on discharge instructions, follow up and referral plans. medication usage, crutch walking, Demonstrated understanding of instructions, follow-up care, medications, crutch walking, splint care, Prescriptions given X 1. 19:01 Patient left the ED. ll1 Signatures: Dispatcher [employer] EDShila Gil, MD MD bandar Thurman Patrick, PATRICK INDUSTRIAL RELATIONS MANAGER pm1 Kenneth Multani RN RN ll1
--- NOTE | 2021-05-01 18:42 | EDPHYS ---
Physician Documentation [facility] Name: Janet Pyle Age: 26 yrs Sex: Female : 1995 Arrival Date: 05/01/2021 Time: 15:49 Bed Waiting Private MD: ED Physician Olman Zhou HPI: 05/01 17:47 This 26 yrs old Female presents to ER via Ambulatory with complaints of Knee pm1 Injury. 17:47 The patient presents with pain, that is acute. The complaints affect the right knee. pm1 Context: The problem was sustained at a sports field or court, resulted from landed on her right knee as she tried to slide to a base, the patient can fully bear weight, the patient is able to ambulate, with moderate difficulty, Problem is a result from a previous injury: No. Onset: The symptoms/episode began/occurred yesterday. Modifying factors: the symptoms are aggravated by weight bearing, bending knee. Associated signs and symptoms: Pertinent positives: swelling, Pertinent negatives calf tenderness, numbness, tingling. Treatment prior to arrival includes: no previous treatment. Severity of symptoms: in the emergency department the symptoms are unchanged. The patient has not experienced similar symptoms in the past. The patient has not recently seen a physician. 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 Flu vaccine is up to date. - Social history:: Smoking status: Patient denies any tobacco usage or history of. ROS: 17:47 Constitutional: Negative for fever, chills, and weight loss. pm1 17:47 Cardiovascular: Negative for chest pain, palpitations, and edema, Respiratory: Negative for shortness of breath, cough, wheezing, and pleuritic chest pain, Abdomen/GI: Negative for abdominal pain, nausea, vomiting, diarrhea, and constipation. 17:47 Skin: Negative for injury, rash, and discoloration, Neuro: Negative for headache, weakness, numbness, tingling, and seizure. 17:47 MS/extremity: Positive for decreased range of motion, pain, swelling, tenderness, of the right knee, Negative for deformity. Exam: 17:47 Constitutional: This is a well developed, well nourished patient who is awake, alert, pm1 and in no acute distress. Head/Face: Normocephalic, atraumatic. 17:47 Skin: Warm, dry with normal turgor. Normal color with no rashes, no lesions, and no evidence of cellulitis. 17:47 Eyes: Exam is negative for acute changes, Extraocular movements: intact throughout, Conjunctiva: no acute changes, no injection. 17:47 ENT: Mouth: Lips: normal, Oral mucosa: normal, pink and intact, moist. 17:47 Cardiovascular: Rate: normal, Rhythm: regular, Pulses: no pulse deficits are appreciated. 17:47 Respiratory: Exam negative for acute changes, respiratory distress, shortness of breath. 17:47 Musculoskeletal/extremity: Extremities: grossly normal except: noted in the right knee: Decreased ROM with flexion due to pain. Tenderness bilaterally below the patella. Pain with rotation of lower right leg medially and laterally, Circulation is intact in all extremities. 17:47 Neuro: Exam negative for acute changes, Orientation: is normal, Mentation: is normal, Motor: is normal, moves all fours. Vital Signs: 15:57 BP 125 / 77; Pulse 76; Resp 17; Temp 97.4; Pulse Ox 100% ; Weight 90.72 kg; Height 5 ll1 ft. 3 in. (160.02 cm); Pain 9/10; 15:57 Body Mass Index 35.43 (90.72 kg, 160.02 cm) ll1 MDM: 16:33 Patient medically screened. pm1 17:52 Data reviewed: vital signs. Data interpreted: Pulse oximetry: on room air is 100 %. pm1 Interpretation: normal. 05/01 16:52 Order name: Knee Right 3 View XRAY; Complete Time: 18:41 pm1 05/01 17:46 Order name: Crutches; Complete Time: 18:59 pm1 05/01 17:46 Order name: Knee Immobilizer; Complete Time: 18:59 pm1 Administered Medications: 17:49 Drug: HYDROcodone-acetaminophen 5 mg-325 mg 1 tabs Route: PO; ll1 18:59 Follow up: Response: No adverse reaction; Pain is decreased; RASS: Alert and Calm (0) ll1 Disposition: 18:41 Co-signature as Attending Physician, Olman Zhou MD I agree with the assessment and rn plan of care. Disposition Summary: 05/01/21 18:42 Discharge Ordered Location: Home rn Problem: new rn Symptoms: have improved rn Condition: Stable rn Diagnosis - Unspecified internal derangement of right knee rn Followup: pm1 - With: Emergency Department - When: As needed - Reason: Worsening of condition Followup: pm1 - With: Private Physician - When: 2 - 3 days - Reason: Recheck today's complaints, Continuance of care, Re-evaluation by your physician Discharge Instructions: - Discharge Summary Sheet pm1 - Crutch Use, Adult pm1 - How to Use a Knee Immobilizer pm1 - Acute Knee Pain, Adult pm1 Forms: - Medication Reconciliation Form rn - Thank You Letter rn - 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
[2021-05-01 19:10] VITALS: BP 125/77; TEMP 97.4; O2SAT 100
== END 2021-05-01 19:01 | disposition home or self-care (01) ==
LOC: ER 15:46
DX: M23.91 Unspecified internal derangement of right knee (principal); X58.XXXA Exposure to other specified factors, initial encounter; Y93.64 Activity, baseball; Y92.328 Other athletic field as the place of occurrence of the external cause
CPT/HCPCS: 99284

== ENCOUNTER 2021-11-27 12:30 | Emergency (ER) | payer OTHER ==
--- OUTSIDE RECORDS SUMMARY | 2021-11-27 12:37 | XMS REPORT | Continuity of Care Document ---
:1995 Author Organization [facility] t Address [address] [place] [address] Care Team Providers Name Role Phone CRICKET_S Attending Clinician Unavailable Cricket Attending Clinician [phone] Arabella NELSON Attending Clinician Unavailable Mehran OG C Attending Clinician Elisabet LAURENT Attending Clinician Unavailable Doctor Unassigned, Name Attending Clinician Unavailable Lloyd Godwin DO Attending Clinician YandySheba Simmons Attending Clinician Visit, Nurse Attending Clinician Unavailable Lab, Fam Pob I Attending Clinician Unavailable Gabino Ann Attending Clinician Gabino WATKINS Attending Clinician Unavailable Emily Cook Attending Clinician Pob1, Care Clinic Attending Clinician Unavailable Emily KOCH Attending Clinician Unavailable Sindy Grant Attending Clinician CRICKET_S Admitting Clinician Unavailable Payers Payer Name Policy Type Policy Number Effective Date Expiration Date Graham zapata [facility] [id number] 2020 CHOICE MEDICAID 00:00:00 [facility] [id number] [facility] (MEDICAID REPLACEMENT - HMO) [facility] [id number] 2019 [facility] 00:00:00 [facility] 3 SHARE PROGRAM (HMO) Advance Directives Directive Decision Effective Termination Comments Source Date Date Healthcare Agents on N/A [facility] Medical RelationshipCommunicationHeather Branch [facility] Care [phone] (Home) Problems Condition Condition Condition Status Onset Resolution Last Treating Co mments Source Name Details Category Date Date Treatment Clinician Date History of History of Disease Active U nivers herpes herpes 4-26 [place] Other Other Disease Active Overview: Peggy isbell general general 1-04 Removed [place] of counseling [place] and advice and advice 00 10/2020 Me dical for for placed Branch contracept contracept 09/2020 edmi demi management management 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, ity o f cell cell 00:00: [facility] [place] changes of changes of 00 repeat Me dical undetermin undetermin pap in Br anch ed ed 2020 significan significan ce (ASCUS) ce (ASCUS) on vaginal on vaginal cytology cytology Placental Placental Disease Active 2016-10 Uni vers abruption abruption 0-29 ity of with with 00:00: [place] coagulatio coagulatio 00 Me dical n defect, n defect, Bran ch delivered delivered Preeclamps Preeclamps Disease Active 2016-10 U nivers ia, ia, 0-27 ity of severe, severe, 00:00: [place] third third 00 Medical trimester trimester Bran ch Liver Liver Disease Active 2016-10 Univers disorder disorder 0-26 ity of during during 00:00: [place] 00 Medi maulik in third in third Branch trimester trimester Anemia of Anemia of Disease Active 2016-10 Uni vers mother in mother in 0-24 ity of , , [place] antepartum antepartum 00 Me dical Branch Tubal Tubal Disease Active 2016-10 Univers ligation ligation 0-24 ity of status status 00:00: [place] 00 Medical Branch Elevated Elevated Disease Active 2016-10 Unive rs liver liver 0-18 ity of enzymes enzymes 00:00: [place] [address] Medical [place] Rh Rh Disease Active Overview: Peggy isbell negative negative 4-16 Rhogam at ity of state in state in 00:00: 28 weeks, Andrei as antepartum antepartum 00 received Medical period period at Branch outside clinic Multiparit Multiparit Disease Active U nivers y y 4-14 ity of 00:00: [place] 00 Medical Branch Obesity Obesity Disease Active Univers affecting affecting 4-14 [facility] [address] [place] [address] Supervisio Supervisio Disease Active U nivers n of high n of high 4-14 ity of risk risk 00:00: [place] , , 00 Me dical antepartum antepartum Br anch Allergies, Adverse Reactions, Alerts Allergy Allergy Status Severity Reaction(s) Onset Inactive Treating Comm ents Source Name Type Date Date Clinician NO KNOWN Drug Active Univers ALLERGIE Class ity of S [facility] Social History Social Habit Start Date Stop Date Quantity Comments Source Exposure to Not sure [facility] SARS-CoV-2 [facility] (event) [place] Alcohol intake 2021-02-08 2021-02-08 Current drinker Unive rsity of 00:00:00 00:00:00 of alcohol [facility] (finding) [place] Tobacco use and 2021-02-08 2021-02-08 Never used Universit y of exposure 00:00:00 00:00:00 [facility] Alcohol Comment 2017-03-15 2017-03-15 social Universit y of 00:00:00 00:00:00 [facility] Sex Assigned At [birth year] Universit y of 00:00:00 00:00:00 [facility] Smoking Status Start Date Stop Date Source Never smoker [facility] Medications Ordered Filled Start Stop Current Ordering Indication Dosage Frequency Signature Comments Components Source Medication Medication Date Date Medication? Clinician (SIG) Name Name acetaminoph Yes Take by Un chhaya en (TYLENOL 4-26 mouth. ity of ORAL) 20:53: [address] acetaminoph Yes Take by Un chhaya en (TYLENOL 4-26 mouth. ity of ORAL) 20:53: [address] acyclovir Yes [id number] 400mg Take 1 Univers 400 mg 4-26 tablet by ity of tablet 00:00: mouth 2 [place] [address] (two) Medical times [place] daily. acyclovir Yes [id number] 400mg Take 1 Univers 400 mg 4-26 tablet by ity of tablet 00:00: mouth 2 [place] (two) Medical times [place] daily. cefTRIAXone 1000mg 1,000 mg, Univers (ROCEPHIN) 10-22 IV ity of 1,000 mg in 20:15: 20:45 Piggyback, [place] NaCl 0.9% 00 :00 ONCE, 1 Medical (NS) 50 mL dose, Yesica Bran ch MINI-BAG 10/22/20 at 1415, 50 mL
Reas on for Anti-Infec tive: Documented Infection< br>Documen franklin Infection Site: Urine
D uration of Therapy: 10 days iohexol 2020- No 120mL 120 mL, Unive rs (OMNIPAQUE 10-22 Intravenou it y of 350 18:45: 18:45 s, ONCE, 1 [place] BULK-150 00 :00 dose, Yesica Medica l mL) 10/22/20 at Branch injection 1245, 120 mL Routine acetaminoph 2020- No 1000mg 1,000 mg, Univers en 10-22 Oral, ity of (TYLENOL) 17:45: 17:45 ONCE, 1 [place] tablet 00 :00 dose, [facility] Medical 1,000 mg 10/22/20 at Branch 1145, JUAN RAMON ketorolac 2020- No 30mg 30 mg, Unive rs (TORADOL) 10-22 Slow IV ity of injection 17:45: 17:45 Push, [place] 30 mg 00 :00 ONCE, 1 Medical dose, Yes[facility] Branch 10/22/20 at 1145, JUAN RAMON
Fa culty member approving Restricted medication : Mike YAN NaCl 0.9% 2020- No 1000mL at 999 Uni vers (NS) bolus 10-22 mL/hr, ity of infusion 17:45: 19:00 1,000 mL, Andrei as 1,000 mL 00 :00 IV Medical Infusion, Branch ONCE, 1 dose, Yesica 10/22/20 at 1145, STAT ibuprofen Yes [id number] 600mg Take 1 U nivers 600 mg 10-22 tablet by ity of tablet 00:00: mouth [place] 00 every 6 Medical (six) Branch hours as needed for Pain (scale 4-6). ondansetron Yes [id number] 4mg Take 1 Univers (ZOFRAN 1-07 tablet by ity of ODT) 4 mg 00:00: mouth [place] disintegrat 00 every 8 Medic al ing tablet (eight) Branch hours as needed for Nausea and Vomiting (N/V). ibuprofen 2020-0 Yes [id number] 600mg Take 1 U nivers 600 mg 1-07 tablet by ity of tablet 00:00: mouth [place] 00 every 6 Medical (six) Branch hours as needed for Pain (scale 4-6). ondansetron 2020-0 Yes [id number] 4mg Take 1 Univers (ZOFRAN 1-07 tablet by ity of ODT) 4 mg 00:00: mouth [place] disintegrat 00 every 8 Medic al ing tablet (eight) Branch hours as needed for Nausea and Vomiting (N/V). ibuprofen 2020-0 Yes [id number] 600mg Take 1 U nivers 600 mg 1-07 tablet by ity of tablet 00:00: mouth [place] 00 every 6 Medical (six) Branch hours as needed for Pain (scale 4-6). ondansetron 2020-0 Yes [id number] 4mg Take 1 Univers (ZOFRAN 1-07 tablet by ity of ODT) 4 mg 00:00: mouth [place] disintegrat 00 every 8 Medic al ing tablet (eight) Branch hours as needed for Nausea and Vomiting (N/V). ibuprofen 2020-0 Yes [id number] 600mg Take 1 U nivers 600 mg 1-07 tablet by ity of tablet 00:00: mouth [place] 00 every 6 Medical (six) Branch hours as needed for Pain (scale 4-6). ondansetron 2020-0 Yes [id number] 4mg Take 1 Univers (ZOFRAN 1-07 tablet by ity of ODT) 4 mg 00:00: mouth [place] disintegrat 00 every 8 Medic al ing tablet (eight) Branch hours as needed for Nausea and Vomiting (N/V). ibuprofen 2020-0 Yes [id number] 600mg Take 1 U nivers 600 mg 1-07 tablet by ity of tablet 00:00: mouth [place] 00 every 6 Medical (six) Branch hours as needed for Pain (scale 4-6). ondansetron 202-0 Yes [id number] 4mg Take 1 Univers (ZOFRAN 1-07 tablet by ity of ODT) 4 mg 00:00: mouth [place] disintegrat 00 every 8 Medic al ing tablet (eight) Branch hours as needed for Nausea and Vomiting (N/V). ibuprofen 2020-0 Yes [id number] 600mg Take 1 U nivers 600 mg 1-07 tablet by ity of tablet 00:00: mouth [place] 00 every 6 Medical (six) Branch hours as needed for Pain (scale 4-6). ondansetron 202-0 Yes [id number] 4mg Take 1 Univers (ZOFRAN 1-07 tablet by ity of ODT) 4 mg 00:00: mouth [place] disintegrat 00 every 8 Medic al ing tablet (eight) Branch hours as needed for Nausea and Vomiting (N/V). ibuprofen 2020-0 Yes [id number] 600mg Take 1 U nivers 600 mg 1-07 tablet by ity of tablet 00:00: mouth [place] 00 every 6 Medical (six) Branch hours as needed for Pain (scale 4-6). ondansetron 2020-0 Yes [id number] 4mg Take 1 Univers (ZOFRAN 1-07 tablet by ity of ODT) 4 mg 00:00: mouth [place] disintegrat 00 every 8 Medic al ing tablet (eight) Branch hours as needed for Nausea and Vomiting (N/V). ibuprofen 2020-0 Yes [id number] 600mg Take 1 U nivers 600 mg 1-07 tablet by ity of tablet 00:00: mouth [place] 00 every 6 Medical (six) Branch hours as needed for Pain (scale 4-6). ondansetron 2020-0 Yes [id number] 4mg Take 1 Univers (ZOFRAN 1-07 tablet by ity of ODT) 4 mg 00:00: mouth [place] disintegrat 00 every 8 Medic al ing tablet (eight) Branch hours as needed for Nausea and Vomiting (N/V). ibuprofen 2021-0 Yes [id number] 600mg Take 1 U nivers 600 mg 1-07 tablet by ity of tablet 00:00: mouth [place] 00 every 6 Medical (six) Branch hours as needed for Pain (scale 4-6). ondansetron 2021-0 Yes [id number] 4mg Take 1 Univers (ZOFRAN 1-07 tablet by ity of ODT) 4 mg 00:00: mouth [place] disintegrat 00 every 8 Medic al ing tablet (eight) Branch hours as needed for Nausea and Vomiting (N/V). cephALEXin 2020- No [id number] 500mg Take 1 Univers (KEFLEX) 10-22 capsule by ity of 500 mg 00:00: 05:59 mouth 3 [place] capsule 00 :00 (three) Medical times Branch daily for 10 days. cephALEXin 2020- No [id number] 500mg Take 1 Univers (KEFLEX) 10-22 capsule by ity of 500 mg 00:00: 05:59 mouth 3 [place] capsule 00 :00 (three) Medical times Branch daily for 10 days. cephALEXin 2020- No [id number] 500mg Take 1 Univers (KEFLEX) 10-22 capsule by ity of 500 mg 00:00: 05:59 mouth 3 [place] capsule 00 :00 (three) Medical times Branch daily for 10 days. cephALEXin 2020- No [id number] 500mg Take 1 Univers (KEFLEX) 10-22 capsule by ity of 500 mg 00:00: 05:59 mouth 3 [place] capsule 00 :00 (three) Medical times Branch daily for 10 days. cephALEXin 2020- No [id number] 500mg Take 1 Univers (KEFLEX) 10-22 capsule by ity of 500 mg 00:00: 05:59 mouth 3 [place] capsule 00 :00 (three) Medical times Branch daily for 10 days. levonorgest 2020- No 1{devic Un chhaya reL 10-19 e} ity of (KYLEENA) 21:30: 20:20 [place] IUD 1 00 :00 [employer] Branch levonorgest 2020- No 1{devic 1 Device, Univers reL 10-19 e} Intrauteri ity of (KYLEENA) 21:30: 20:20 [place], [place]CE, [place] I[place] 1 00 :00 1 dose, [employer] 10/19/20 Branch at 1530, Routine levonorgest 2020- No 1{devic Un chhaya reL 10-19 e} ity of (KYLEENA) 21:30: 20:20 [place] IUD 1 00 :00 [employer] Branch levonorgest 2020- No 1{devic 1 Device, Univers reL 10-19 e} Intrauteri ity of (KYLEENA) 21:30: 20:20 ne, ONCE, [place] I[place] 1 00 :00 1 dose, [employer] Mon10/19/20 Branch at 1530, Routine levonorgest 2020- No 1{devic Un chhaya reL 10-19- e} ity of (KYLEENA) 21:30: 20:20 [place] IUD 1 00 :00 [employer] Branch levonorgest 202- No 1{devic 1 Device, Univers reL 10-19- e} Intrauteri ity of (KYLEENA) 21:30: 20:20 ne, ONCE, [place] I[place] 1 00 :00 1 dose, [employer] Mon10/19/20 Branch at 1530, Routine levonorgest 2020- No 1{devic Un chhaya reL 10-19 e} ity of (KYLEENA) 21:30: 20:20 [place] IUD 1 00 :00 [employer] Branch levonorgest 2020- No 1{devic 1 Device, Univers reL 10-19 e} Intrauteri ity of (KYLEENA) 21:30: 20:20 ne, ONCE, [place] I[place] 1 00 :00 1 dose, [employer] Mon10/19/20 Branch at 1530, Routine acetaminoph 2020-0 Yes Take by Un chhaya en (TYLENOL 4-01 mouth. ity of ORAL) 15:58: [address] acetaminoph 2020-0 Yes Take by Un chhaya en (TYLENOL 4-01 mouth. ity of ORAL) 15:58: [address] acetaminoph 2020-0 Yes Take by Un chhaya en (TYLENOL 4-01 mouth. ity of ORAL) 15:58: [address] acetaminoph 2020-0 Yes Take by Un chhaya en (TYLENOL 4-01 mouth. ity of ORAL) 15:58: [address] acetaminoph 2020-0 Yes Take by Un chhaya en (TYLENOL 4-01 mouth. ity of ORAL) 15:58: [address] acetaminoph 2020-0 Yes Take by Un chhaya en (TYLENOL 4-01 mouth. ity of ORAL) 15:58: [place] [address] Medical Branch acetaminoph 2020-0 Yes Take by Un chhaya en (TYLENOL 4-01 mouth. ity of ORAL) 15:58: [place] [address] Medical Branch acetaminoph 2020-0 Yes Take by Un chhaya en (TYLENOL 4-01 mouth. ity of ORAL) 15:58: [place] [address] Medical Branch acetaminoph 2020-0 Yes Take by Un chhaya en (TYLENOL 4-01 mouth. ity of ORAL) 15:58: [place] [address] Medical Branch acetaminoph 2020-0 Yes Take by Un chhaya en (TYLENOL 4-01 mouth. ity of ORAL) 15:58: [place] [address] Medical Branch acetaminoph 2020-0 Yes Take by Un chhaya en (TYLENOL 4-01 mouth. ity of ORAL) 15:58: [place] [address] Medical Branch acetaminoph 2020-0 Yes Take by Un chhaya en (TYLENOL 4-01 mouth. ity of ORAL) 15:58: [place] [address] Medical Branch acetaminoph 2020-0 Yes Take by Un chhaya en (TYLENOL 4-01 mouth. ity of ORAL) 15:58: [place] [address] Medical Branch acetaminoph 2020-0 Yes Take by Un chhaya en (TYLENOL 4-01 mouth. ity of ORAL) 15:58: [place] [address] Medical Branch acetaminoph 2020-0 Yes Take by Un chhaya en (TYLENOL 4-01 mouth. ity of ORAL) 15:58: [place] [address] Medical Branch acetaminoph 2020-0 Yes Take by Un chhaya en (TYLENOL 4-01 mouth. ity of ORAL) 15:58: [place] [address] Medical Branch acetaminoph 2020-0 Yes Take by Un chhaya en (TYLENOL 4-01 mouth. ity of ORAL) 15:58: [place] [address] Medical Branch acetaminoph 2020-0 Yes Take by Un chhaya en (TYLENOL 4-01 mouth. ity of ORAL) 15:58: [place] [address] Medical Branch acetaminoph 2020-0 Yes Take by Un chhaya en (TYLENOL 4-01 mouth. ity of ORAL) 15:58: [place] [address] Medical Branch acetaminoph 2020-0 Yes Take by Un chhaya en (TYLENOL 4-01 mouth. ity of ORAL) 15:58: [place] 34 Medical Branch acetaminoph 2020-0 Yes Take by Un chhaya en (TYLENOL 4-01 mouth. ity of ORAL) 15:58: [address] acetaminoph 2020-0 Yes Take by Un chhaya en (TYLENOL 4-01 mouth. ity of ORAL) 15:58: [address] acetaminoph 2020-0 Yes Take by Un chhaya en (TYLENOL 4-01 mouth. ity of ORAL) 15:58: [address] acetaminoph 2020-0 Yes Take by Un chhaya en (TYLENOL 4-01 mouth. ity of ORAL) 15:58: [address] acetaminoph 2020-0 Yes Take by Un chhaya en (TYLENOL 4-01 mouth. ity of ORAL) 15:58: [address] benzonatate 2020-0 2020- No [id number] 100mg Take 1 Univers (TESSALON 4-01 04-12 capsule by ity of PERLOffScale) 100 00:00: 04:59 mouth 3 [place] mg capsule 00 :00 (three) Medica l times Branch daily for 10 days. benzonatate 2020-0 2020- No [id number] 100mg Take 1 Univers (TESSALON 4-01 04-12 capsule by ity of PERLOffScale) 100 00:00: 04:59 mouth 3 [place] mg capsule 00 :00 (three) Medica l times Branch daily for 10 days. benzonatate 2020-0 2020- No [id number] 100mg Take 1 Univers (TESSALON 4-01 04-12 capsule by ity of PERLOffScale) 100 00:00: 04:59 mouth 3 [place] mg capsule 00 :00 (three) Medica l times Branch daily for 10 days. NUVARING 2020-0 Yes [id number] 1{each} Insert 1 Univers (NUVARING) 3-24 Each into ity of 0.12-0.015 00:00: vagina [place] mg/24 hr 00 once every Medic al vaginal month. Branch insert Insert vaginally and leave in place for 3 consecutiv e weeks, then remove for 1 week. NUVARING 2020-0 Yes [id number] 1{each} Insert 1 Univers (NUVARING) 3-24 Each into ity of 0.12-0.015 00:00: vagina [place] mg/24 hr 00 once every Medic al vaginal month. Branch insert Insert vaginally and leave in place for 3 consecutiv e weeks, then remove for 1 week. NUVARING 2020-0 Yes [id number] 1{each} Insert 1 Univers (NUVARING) 3-24 Each into ity of 0.12-0.015 00:00: vagina [place] mg/24 hr 00 once every Medic al vaginal month. Branch insert Insert vaginally and leave in place for 3 consecutiv e weeks, then remove for 1 week. NUVARING 2020-0 Yes [id number] 1{each} Insert 1 Univers (NUVARING) 3-24 Each into ity of 0.12-0.015 00:00: vagina [place] mg/24 hr 00 once every Medic al vaginal month. Branch insert Insert vaginally and leave in place for 3 consecutiv e weeks, then remove for 1 week. NUVARING 2020-0 Yes [id number] 1{each} Insert 1 Univers (NUVARING) 3-24 Each into ity of 0.12-0.015 00:00: vagina [place] mg/24 hr 00 once every Medic al vaginal month. Branch insert Insert vaginally and leave in place for 3 consecutiv e weeks, then remove for 1 week. NUVARING 2020-0 Yes [id number] 1{each} Insert 1 Univers (NUVARING) 3-24 Each into ity of 0.12-0.015 00:00: vagina [place] mg/24 hr 00 once every Medic al vaginal month. Branch insert Insert vaginally and leave in place for 3 consecutiv e weeks, then remove for 1 week. NUVARING 2020-0 Yes [id number] 1{each} Insert 1 Univers (NUVARING) 3-24 Each into ity of 0.12-0.015 00:00: vagina [place] mg/24 hr 00 once every Medic al vaginal month. Branch insert Insert vaginally and leave in place for 3 consecutiv e weeks, then remove for 1 week. NUVARING 2020-0 Yes [id number] 1{each} Insert 1 Univers (NUVARING) 3-24 Each into ity of 0.12-0.015 00:00: vagina [place] mg/24 hr 00 once every Medic al vaginal month. Branch insert Insert vaginally and leave in place for 3 consecutiv e weeks, then remove for 1 week. NUVARING 2020-0 Yes [id number] 1{each} Insert 1 Univers (NUVARING) 3-24 Each into ity of 0.12-0.015 00:00: vagina [place] mg/24 hr 00 once every Medic al vaginal month. Branch insert Insert vaginally and leave in place for 3 consecutiv e weeks, then remove for 1 week. NUVARING 2019-0 Yes [id number] 1{each} Insert 1 Univers (NUVARING) 3-24 Each into ity of 0.12-0.015 00:00: vagina [place] mg/24 hr 00 once every Medic al vaginal month. Branch insert Insert vaginally and leave in place for 3 consecutiv e weeks, then remove for 1 week. NUVARING 2019-0 Yes [id number] 1{each} Insert 1 Univers (NUVARING) 3-24 Each into ity of 0.12-0.015 00:00: vagina [place] mg/24 hr 00 once every Medic al vaginal month. Branch insert Insert vaginally and leave in place for 3 consecutiv e weeks, then remove for 1 week. NUVARING 2019- Yes [id number] 1{each} Insert 1 Univers (NUVARING) 3-24 Each into ity of 0.12-0.015 00:00: vagina [place] mg/24 hr 00 once every Medic al vaginal month. Branch insert Insert vaginally and leave in place for 3 consecutiv e weeks, then remove for 1 week. NUVARING 2019-0 Yes [id number] 1{each} Insert 1 Univers (NUVARING) 3-24 Each into ity of 0.12-0.015 00:00: vagina [place] mg/24 hr 00 once every Medic al vaginal month. Branch insert Insert vaginally and leave in place for 3 consecutiv e weeks, then remove for 1 week. NUVARING 2019-0 Yes [id number] 1{each} Insert 1 Univers (NUVARING) 3-24 Each into ity of 0.12-0.015 00:00: vagina [place] mg/24 hr 00 once every Medic al vaginal month. Branch insert Insert vaginally and leave in place for 3 consecutiv e weeks, then remove for 1 week. NUVARING 2019-0 Yes [id number] 1{each} Insert 1 Univers (NUVARING) 3-24 Each into ity of 0.12-0.015 00:00: vagina [place] mg/24 hr 00 once every Medic al vaginal month. Branch insert Insert vaginally and leave in place for 3 consecutiv e weeks, then remove for 1 week. NUVARING 2020-0 Yes [id number] 1{each} Insert 1 Univers (NUVARING) 3-24 Each into ity of 0.12-0.015 00:00: vagina [place] mg/24 hr 00 once every Medic al vaginal month. Branch insert Insert vaginally and leave in place for 3 consecutiv e weeks, then remove for 1 week. NUVARING 2019-0 Yes [id number] 1{each} Insert 1 Univers (NUVARING) 3-24 Each into ity of 0.12-0.015 00:00: vagina [place] mg/24 hr 00 once every Medic al vaginal month. Branch insert Insert vaginally and leave in place for 3 consecutiv e weeks, then remove for 1 week. NUVARING 2019-0 Yes [id number] 1{each} Insert 1 Univers (NUVARING) 3-24 Each into ity of 0.12-0.015 00:00: vagina [place] mg/24 hr 00 once every Medic al vaginal month. Branch insert Insert vaginally and leave in place for 3 consecutiv e weeks, then remove for 1 week. NUVARING 2020-0 Yes [id number] 1{each} Insert 1 Univers (NUVARING) 3-24 Each into ity of 0.12-0.015 00:00: vagina [place] mg/24 hr 00 once every Medic al vaginal month. Branch insert Insert vaginally and leave in place for 3 consecutiv e weeks, then remove for 1 week. NUVARING 2019-0 Yes [id number] 1{each} Insert 1 Univers (NUVARING) 3-24 Each into ity of 0.12-0.015 00:00: vagina [place] mg/24 hr 00 once every Medic al vaginal month. Branch insert Insert vaginally and leave in place for 3 consecutiv e weeks, then remove for 1 week. NUVARING 2020-0 Yes [id number] 1{each} Insert 1 Univers (NUVARING) 3-24 Each into ity of 0.12-0.015 00:00: vagina [place] mg/24 hr 00 once every Medic al vaginal month. Branch insert Insert vaginally and leave in place for 3 consecutiv e weeks, then remove for 1 week. NUVARING 2020-0 Yes [id number] 1{each} Insert 1 Univers (NUVARING) 3-24 Each into ity of 0.12-0.015 00:00: vagina [place] mg/24 hr 00 once every Medic al vaginal month. Branch insert Insert vaginally and leave in place for 3 consecutiv e weeks, then remove for 1 week. NUVARING 2020-0 Yes [id number] 1{each} Insert 1 Univers (NUVARING) 3-24 Each into ity of 0.12-0.015 00:00: vagina [place] mg/24 hr 00 once every Medic al vaginal month. Branch insert Insert vaginally and leave in place for 3 consecutiv e weeks, then remove for 1 week. NUVARING 2019-0 Yes [id number] 1{each} Insert 1 Univers (NUVARING) 3-24 Each into ity of 0.12-0.015 00:00: vagina [place] mg/24 hr 00 once every Medic al vaginal month. Branch insert Insert vaginally and leave in place for 3 consecutiv e weeks, then remove for 1 week. NUVARING 2019-0 Yes [id number] 1{each} Insert 1 Univers (NUVARING) 3-24 Each into ity of 0.12-0.015 00:00: vagina [place] mg/24 hr 00 once every Medic al vaginal month. Branch insert Insert vaginally and leave in place for 3 consecutiv e weeks, then remove for 1 week. NUVARING 2020-0 Yes [id number] 1{each} Insert 1 Univers (NUVARING) 3-24 Each into ity of 0.12-0.015 00:00: vagina [place] mg/24 hr 00 once every Medic al vaginal month. Branch insert Insert vaginally and leave in place for 3 consecutiv e weeks, then remove for 1 week. NUVARING 2020-0 Yes [id number] 1{each} Insert 1 Univers (NUVARING) 3-24 Each into ity of 0.12-0.015 00:00: vagina [place] mg/24 hr 00 once every Medic al vaginal month. Branch insert Insert vaginally and leave in place for 3 consecutiv e weeks, then remove for 1 week. NUVARING 2020-0 Yes [id number] 1{each} Insert 1 Univers (NUVARING) 3-24 Each into ity of 0.12-0.015 00:00: vagina [place] mg/24 hr 00 once every Medic al vaginal month. Branch insert Insert vaginally and leave in place for 3 consecutiv e weeks, then remove for 1 week. NUVARING 2020-0 Yes [id number] 1{each} Insert 1 Univers (NUVARING) 3-24 Each into ity of 0.12-0.015 00:00: vagina [place] mg/24 hr 00 once every Medic al vaginal month. Branch insert Insert vaginally and leave in place for 3 consecutiv e weeks, then remove for 1 week. doxycycline 2019- No 100mg 100 mg, U nivers hyclate 11-22 Oral, ity of (Vibramycin 22:45: 21:51 [place]CE, 1 [place] capsule 00 :00 dose, Fri Medic al 100 mg 11/22/19 at Branch 1645, JUAN RAMON
Re ason for Anti-Infec tive: Empiric Therapy for Suspected Infection< br>Empiric Therapy Site: Urine
D uration of therapy: 72 hours ondansetron 2019- No 4mg 4 mg, Univ ers (ZOFRAN-ODT 11-22 Oral, ity of ) 22:45: 21:51 ONCE, 1 [place] disintegrat 00 :00 dose, Fri Med ical ing tablet 11/22/19 at Bran ch 4 mg 1645, Routine azithromyci 2019- No 1000mg 1,000 mg, Univers n 11-22 Oral, ity of (ZITHROMAX) 22:45: 21:51 [place]CE[place] 1 [place] 00 :00 dose, Fri Medical 1,000 mg 11/22/19 at Branch 1645, JUAN RAMON
Re ason for Anti-Infec tive: Empiric Therapy for Suspected Infection< br>Empiric Therapy Site: Urine
D uration of therapy: 72 hours cefTRIAXone 2019- No 500mg 500 mg, U nivers (ROCEPHIN) 11-22 Intramuscu it y of injection 22:45: 21:51 [place], [place]CE, [place] 500 mg 00 :00 1 dose, Medical 11/22/19 Branch at 1645, JUAN RAMON
Re ason for Anti-Infec tive: Empiric Therapy for Suspected Infection< br>Empiric Therapy Site: Urine
D uration of therapy: 72 hours metroNIDAZO 2020-0 Yes [id number] 500mg Take 1 [facility] LE 500 mg 2-07 tablet by ity o f tablet 00:00: mouth 2 00 (two) Medical times Branch daily. metroNIDAZO 2020-0 Yes [id number] 500mg Take 1 [facility] LE 500 mg 2-07 tablet by ity o f tablet 00:00: mouth 2 00 (two) Medical times Branch daily. metroNIDAZO 2020-0 Yes [id number] 500mg Take 1 [facility] LE 500 mg 2-07 tablet by ity o f tablet 00:00: mouth 2 00 (two) Medical times Branch daily. metroNIDAZO 2020-0 Yes [id number] 500mg Take 1 [facility] LE 500 mg 2-07 tablet by ity o f tablet 00:00: mouth 2 00 (two) Medical times Branch daily. metroNIDAZO 2020-0 Yes [id number] 500mg Take 1 [facility] LE 500 mg 2-07 tablet by ity o f tablet 00:00: mouth 2 00 (two) Medical times Branch daily. metroNIDAZO 2020-0 Yes [id number] 500mg Take 1 [facility] LE 500 mg 2-07 tablet by ity o f tablet 00:00: mouth 2 00 (two) Medical times Branch daily. metroNIDAZO 2020-0 Yes [id number] 500mg Take 1 [facility] LE 500 mg 2-07 tablet by ity o f tablet 00:00: mouth 2 00 (two) Medical times Branch daily. metroNIDAZO 2020-0 Yes [id number] 500mg Take 1 [facility] LE 500 mg 2-07 tablet by ity o f tablet 00:00: mouth 2 00 (two) Medical times Branch daily. metroNIDAZO 2020-0 Yes [id number] 500mg Take 1 [facility] LE 500 mg 2-07 tablet by ity o f tablet 00:00: mouth 2 00 (two) Medical times Branch daily. metroNIDAZO 2020-0 2020- No [id number] 500mg Take 1 [facility] LE 500 mg 2-07 04-01 tablet by ity of tablet 00:00: 00:00 mouth 2 [place] 00 :00 (two) Medical times Branch daily. doxycycline 2020-0 2020- No [id number] 100mg Take 1 [facility] hyclate 100 11-22 capsule by i ty of mg capsule 00:00: 05:59 mouth 2 [place] 00 :00 (two) Medical times Branch daily for 14 days. doxycycline 2019-2019- No [id number] 100mg Take 1 [facility] hyclate 100 11-22 capsule by i ty of mg capsule 00:00: 05:59 mouth 2 [place] 00 :00 (two) Medical times Branch daily for 14 days. doxycycline 2019- No [id number] 100mg Take 1 [facility] hyclate 100 11-22 capsule by i ty of mg capsule 00:00: 05:59 mouth 2 [place] 00 :00 (two) Medical times Branch daily for 14 days. doxycycline 2019- No [id number] 100mg Take 1 [facility] hyclate 100 11-22 capsule by i ty of mg capsule 00:00: 05:59 mouth 2 [place] 00 :00 (two) Medical times Branch daily for 14 days. doxycycline 2019- No [id number] 100mg Take 1 [facility] hyclate 100 11-22 capsule by i ty of mg capsule 00:00: 05:59 mouth 2 [place] 00 :00 (two) Medical times Branch daily for 14 days. acyclovir 2019- No [id number] 800mg Take 4 [facility] 200 mg 11-22- capsules ity of capsule 00:00: 05:59 by mouth 2 [place] 00 :00 (two) Medical times Branch daily for 5 days. proMETHazin 2020- No [id number] 12.5mg Take 1 [facility] e 12.5 mg 11-22 tablet by ity of tablet 00:00: 05:59 mouth [place] 00 :00 every 6 Medical (six) Branch hours as needed for Nausea and Vomiting (N/V) for up to 3 days. fluconazole 2019- No [id number] 150mg Take 1 [facility] 150 mg 11-22-08 tablet by [facility] tablet 00:00: 05:59 mouth [place] 00 :[place] now for 1 Medical dose. Branch promethazin Yes [id number] 5mL Take 5 mL Univers e-codeine 5-11 by mouth 4 ity of 6.25-10 00:00: (four) [place] mg/5 mL 00 times Medical syrup daily as Branch needed for Cough. loratadine Yes [id number] 10mg Take 1 [facility] 10 mg 5-11 tablet by ity of tablet 00:00: mouth [place] 00 daily. Medical Branch sod Yes [id number] 1{bottl Use 1 Univ ers chlor-bicar 5-11 e} Bottle in ity of b-squeez 00:00: each [place] bottle 00 nostril 2 Medical (NEILMED (two) Branch SINUS RINSE times COMPLETE) daily. Use pkdv in hot shower 1 hour before bedtime promethazin Yes [id number] 5mL Take 5 mL [facility] e-codeine 5-11 by mouth 4 ity of 6.25-10 00:00: (four) [place] mg/5 mL 00 times Medical syrup daily as Branch needed for Cough. loratadine Yes [id number] 10mg Take 1 [facility] 10 mg 5-11 tablet by ity of tablet 00:00: mouth [place] 00 daily. Medical Branch sod Yes [id number] 1{bottl Use 1 Univ ers chlor-bicar 5-11 e} Bottle in ity of b-squeez 00:00: each [place] bottle 00 nostril 2 Medical (NEILMED (two) Branch SINUS RINSE times COMPLETE) daily. Use pkdv in hot shower 1 hour before bedtime promethazin 2020- No [id number] 5mL Take 5 mL [facility] e-codeine 5-11 02-14 by mouth 4 ity of 6.25-10 00:00: 00:00 (four) [place] mg/5 mL 00 :00 times Medical syrup daily as Branch needed for Cough. loratadine 2020- No [id number] 10mg Take 1 [facility] 10 mg 5-11 02-14 tablet by ity of tablet 00:00: 00:00 mouth [place] 00 :00 daily. Medical Branch sod 2020- No [id number] 1{bottl Use 1 Uni vers chlor-bicar 5-11 02-14 e} Bottle in it y of b-squeez 00:00: 00:00 each [place] bottle 00 :00 nostril 2 Medical (NEILMED (two) Branch SINUS RINSE times COMPLETE) daily. Use pkdv in hot shower 1 hour before bedtime promethazin 2019- No [id number] 5mL Take 5 mL [facility] e-codeine 02-23-14 by mouth 4 ity of 6.25-10 00:00: 00:00 (four) [place] mg/5 mL 00 :00 times Medical syrup daily as Branch needed for Cough. loratadine 2019- No [id number] 10mg Take 1 [facility] 10 mg 5-08 17-14 tablet by ity of tablet 00:00: 00:00 mouth [place] 00 :00 daily. Medical Branch sod 2019- No [id number] 1{bottl Use 1 Uni vers chlor-bicar 02-23-14 e} Bottle in it y of b-squeez 00:00: 00:00 each [place] bottle 00 :00 nostril 2 Medical (NEILMED (two) Branch SINUS RINSE times COMPLETE) daily. Use pkdv in hot shower 1 hour before bedtime promethazin 2019- No [id number] 5mL Take 5 mL [facility] e-codeine 02-23-14 by mouth 4 ity of 6.25-10 00:00: 00:00 (four) [place] mg/5 mL 00 :00 times Medical syrup daily as Branch needed for Cough. loratadine 2019- No [id number] 10mg Take 1 [facility] 10 mg 02-23-14 tablet by ity of tablet 00:00: 00:00 mouth [place] 00 :00 daily. Medical Branch sod 2019- No [id number] 1{bottl Use 1 Uni vers chlor-bicar 02-23-14 e} Bottle in it y of b-squeez 00:00: 00:00 each [place] bottle 00 :00 nostril 2 Medical (NEILMED (two) Branch SINUS RINSE times COMPLETE) daily. Use pkdv in hot shower 1 hour before bedtime HYDROcodone 2016-10 Yes 1{tbl} Take 1 Un chhaya -acetaminop 0-29 tablet by ity of hen 5-325 00:00: mouth [place] mg tablet 00 every 6 Medical (six) Branch hours as needed for Pain (scale 4-6) or Pain (scale 7-10). ibuprofen 2017-1 Yes 600mg Take 1 Unive rs 600 mg 0-29 tablet by ity of tablet 00:00: mouth [place] 00 every 6 Medical (six) Branch hours as needed for Pain (scale 4-6) or Pain (scale 4-6) with oral narcotics. 2016-10 Yes 1{tbl} Take 1 Unive rs vitamin 0-29 tablet by ity of w/FA tablet 00:00: mouth [place] 00 daily. Medical Branch docusate 2016-10 Yes 240mg Take 1 Univer s calcium 240 0-29 capsule by it y of mg capsule 00:00: mouth once [place] 00 daily as Medical needed for Branch Constipati on. ferrous 2016-10 Yes 325mg Take 1 [facility] sulfate 325 0-29 tablet by ity of mg (65 mg 00:00: mouth 2 [place] iron) 00 (two) Medical tablet times Branch daily. HYDROcodone 2016-10 Yes 1{tbl} Take 1 Un chhaya -acetaminop 0-29 tablet by ity of hen 5-325 00:00: mouth [place] mg tablet 00 every 6 Medical (six) Branch hours as needed for Pain (scale 4-6) or Pain (scale 7-10). ibuprofen 2016-10 Yes 600mg Take 1 Unive rs 600 mg 0-29 tablet by ity of tablet 00:00: mouth [place] 00 every 6 Medical (six) Branch hours as needed for Pain (scale 4-6) or Pain (scale 4-6) with oral narcotics. 2016-10 Yes 1{tbl} Take 1 Unive rs vitamin 0-29 tablet by ity of w/FA tablet 00:00: mouth [place] 00 daily. Medical Branch docusate 2016-10 Yes 240mg Take 1 Univer s calcium 240 0-29 capsule by it y of mg capsule 00:00: mouth once [place] 00 daily as Medical needed for Branch Constipati on. ferrous 2016-10 Yes 325mg Take 1 [facility] sulfate 325 0-29 tablet by ity of mg (65 mg 00:00: mouth 2 [place] iron) 00 (two) Medical tablet times Branch daily. HYDROcodone 2016-10 2020- No 1{tbl} Take 1 U nivers -acetaminop 0-29 02-14 tablet by it y of hen 5-325 00:00: 00:00 mouth [place] mg tablet 00 :00 every 6 Medical (six) Branch hours as needed for Pain (scale 4-6) or Pain (scale 7-10). ibuprofen 2016-10 2020- No 600mg Take 1 Univ ers 600 mg 0-29 02-14 tablet by ity of tablet 00:00: 00:00 mouth [place] 00 :00 every 6 Medical (six) Branch hours as needed for Pain (scale 4-6) or Pain (scale 4-6) with oral narcotics. 2016-10- No 1{tbl} Take 1 Univ ers vitamin 0-29 02-14 tablet by ity of w/FA tablet 00:00: 00:00 [place] 00 :00 daily. Medical Branch docusate 2016-10- No 240mg Take 1 Unive rs calcium 240 0-29 02-14 capsule by i ty of mg capsule 00:00: 00:00 mouth once [place] 00 :00 daily as Medical needed for Branch Constipati on. ferrous 2016-10- No 325mg Take 1 Univer s sulfate 325 0-29 02-14 tablet by it y of mg (65 mg 00:00: 00:00 mouth 2 [place] iron[place] 00 :00 (two) Medical tablet times Branch daily. HYDROcodone 2016-10- No 1{tbl} Take 1 U nivers -acetaminop 0-29 02-14 tablet by it y of hen 5-325 00:00: 00:00 mouth [place] mg tablet 00 :00 every 6 Medical (six) Branch hours as needed for Pain (scale 4-6) or Pain (scale 7-10). ibuprofen 2016-10- No 600mg Take 1 Univ ers 600 mg 0-29 02-14 tablet by ity of tablet 00:00: 00:00 mouth [place] 00 :00 every 6 Medical (six) Branch hours as needed for Pain (scale 4-6) or Pain (scale 4-6) with oral narcotics. 2016-10- No 1{tbl} Take 1 [facility] ers vitamin 0-29 02-14 tablet by ity of w/FA tablet 00:00: 00:00 mouth [place] 00 :00 daily. Medical Branch docusate 2016-10- No 240mg Take 1 Unive rs calcium 240 0-29 02-14 capsule by i ty of mg capsule 00:00: 00:00 mouth once [place] 00 :00 daily as Medical needed for Branch Constipati on. ferrous 2017-1 2020- No 325mg Take 1 Univer s sulfate 325 0-29 02-14 tablet by it y of mg (65 mg 00:00: 00:00 mouth 2 [place] iron) 00 :00 (two) Medical tablet times Branch daily. HYDROcodone 2016-10- No 1{tbl} Take 1 U nivers -acetaminop 0-29 02-14 tablet by it y of hen 5-325 00:00: 00:00 mouth [place] mg tablet 00 :00 every 6 Medical (six) Branch hours as needed for Pain (scale 4-6) or Pain (scale 7-10). ibuprofen 2016-10 2020- No 600mg Take 1 Univ ers 600 mg 0-29 02-14 tablet by ity of tablet 00:00: 00:00 mouth [place] 00 :00 every 6 Medical (six) Branch hours as needed for Pain (scale 4-6) or Pain (scale 4-6) with oral narcotics. 2016-10- No 1{tbl} Take 1 Univ ers vitamin 0-29 02-14 tablet by ity of w/FA tablet 00:00: 00:00 mouth [place] 00 :00 daily. Medical Branch docusate 2016-10 2020- No 240mg Take 1 Unive rs calcium 240 0-29 02-14 capsule by i ty of mg capsule 00:00: 00:00 mouth once [place] 00 :00 daily as Medical needed for Branch Constipati on. ferrous 2016-10- No 325mg Take 1 Univer s sulfate 325 0-29 02-14 tablet by it y of mg (65 mg 00:00: 00:00 mouth 2 [place] iron) 00 :00 (two) Medical tablet times Branch daily. Immunizations Ordered Filled Immunization Date Status Comments [facility] e Immunization Name Name [facility] 2020-04-21 Completed [facility] 00:00:00 [facility] HPV9 2020-04-21 Completed [facility] of 00:00:00 [facility] HPV9 2020-04-21 Completed University of 00:00:00 [facility]9 2020-04-21 Completed University of 00:00:00 [facility] 2020-04-21 Completed University of 00:00:00 [facility] HPV9 2020-04-21 Completed [facility] of 00:00:00 [facility] HPV9 2020-04-21 Completed University of 00:00:00 [facility] HPV9 2020-04-21 Completed University of 00:00:00 [facility] HPV9 2020-04-21 Completed University of 00:00:00 [place] [facility] HPV9 2020-04-21 Completed University of 00:00:00 [facility] HPV9 2020-04-21 Completed University of 00:00:00 [facility] HPV9 2020-04-21 Completed University of 00:00:00 [facility] HPV9 2020-04-21 Completed University of 00:00:00 [facility] HPV9 2020-04-21 Completed University of 00:00:00 [facility] HPV9 2020-04-21 Completed University of 00:00:00 [facility] HPV9 2020-04-21 Completed University of 00:00:00 [facility] HPV9 2020-04-21 Completed University of 00:00:00 [facility] HPV9 2020-04-21 Completed University of 00:00:00 [facility] HPV9 2020-04-21 Completed University of 00:00:00 [facility] HPV9 2020-04-21 Completed University of 00:00:00 [facility] HPV9 2020-04-21 Completed University of 00:00:00 [facility] HPV9 2020-04-21 Completed University of 00:00:00 [facility] HPV9 2020-04-21 Completed University of 00:00:00 [facility] Influenza Virus 2019-11-29 Completed Universit y of Vaccine Quad .5 mL 00:00:00 [facility] 6+ MO Branch HPV9 2019-11-29 Completed University of 00:00:00 [facility] Influenza Virus 2019-11-29 Completed Universit y of Vaccine Quad .5 mL 00:00:00 [facility] 6+ MO Branch HPV9 2019-11-29 Completed University of 00:00:00 [facility] Influenza Virus 2019-11-29 Completed Universit y of Vaccine Quad .5 mL 00:00:00 [facility] 6+ MO Branch HPV9 2019-11-29 Completed University of 00:00:00 [facility] Influenza Virus 2019-11-29 Completed Universit y of Vaccine Quad .5 mL 00:00:00 [facility] 6+ MO Branch HPV9 2019-11-29 Completed University of 00:00:00 [facility] Influenza Virus 2019-11-29 Completed Universit y of Vaccine Quad .5 mL 00:00:00 [facility] 6+ MO Branch HPV9 2019-11-29 Completed [facility] of 00:00:00 [facility] Influenza Virus 2019-11-29 Completed Universit y of Vaccine Quad .5 mL 00:00:00 [place] [facility] 6+ MO Branch HPV9 2019-11-29 Completed [facility] of 00:00:00 [facility] Influenza Virus 2019-11-29 Completed Universit y of Vaccine Quad .5 mL 00:00:00 [place] [facility] IM 6+ MO Branch HPV9 2019-11-29 Completed [facility] of 00:00:00 [facility] Influenza Virus 2019-11-29 Completed Universit y of Vaccine Quad .5 mL 00:00:00 [place] [facility] IM 6+ MO Branch HPV9 2019-11-29 Completed [facility] of 00:00:00 [facility] Influenza Virus 2019-11-29 Completed Universit y of Vaccine Quad .5 mL 00:00:00 [place] [facility] IM 6+ MO Branch HPV9 2019-11-29 Completed University of 00:00:00 [facility] Influenza Virus 2019-11-29 Completed Universit y of Vaccine Quad .5 mL 00:00:00 [place] [facility] IM 6+ MO Branch HPV9 2019-11-29 Completed [facility] of 00:00:00 [facility] Influenza Virus 2019-11-29 Completed Universit y of Vaccine Quad .5 mL 00:00:00 [place] [facility] 6+ MO Branch HPV9 2019-11-29 Completed University of 00:00:00 [facility] Influenza Virus 2019-11-29 Completed Universit y of Vaccine Quad .5 mL 00:00:00 [place] [facility] IM 6+ MO Branch HPV9 2019-11-29 Completed University of 00:00:00 [facility] Influenza Virus 2019-11-29 Completed Universit y of Vaccine Quad .5 mL 00:00:00 [place] [facility] IM 6+ MO Branch HPV9 2019-11-29 Completed University of 00:00:00 [facility] Influenza Virus 2019-11-29 Completed Universit y of Vaccine Quad .5 mL 00:00:00 [place] [facility] IM 6+ MO Branch HPV9 2019-11-29 Completed University of 00:00:00 [facility] Influenza Virus 2019-11-29 Completed Universit y of Vaccine Quad .5 mL 00:00:00 [place] [facility] IM 6+ MO Branch HPV9 2019-11-29 Completed University of 00:00:00 [facility] Influenza Virus 2019-11-29 Completed Universit y of Vaccine Quad .5 mL 00:00:00 [place] [facility] IM 6+ MO Branch HPV9 2019-11-29 Completed University of 00:00:00 [facility] Influenza Virus 2019-11-29 Completed Universit y of Vaccine Quad .5 mL 00:00:00 [place] [facility] IM 6+ MO Branch HPV9 2019-11-29 Completed University of 00:00:00 [facility] Influenza Virus 2019-11-29 Completed Universit y of Vaccine Quad .5 mL 00:00:00 [place] [facility] IM 6+ MO Branch HPV9 2019-11-29 Completed University of 00:00:00 [facility] Influenza Virus 2019-11-29 Completed Universit y of Vaccine Quad .5 mL 00:00:00 [place] [facility] 6+ MO Branch HPV9 2019-11-29 Completed University of 00:00:00 [facility] Influenza Virus 2019-11-29 Completed Universit y of Vaccine Quad .5 mL 00:00:00 [place] [facility] 6+ MO Branch HPV9 2019-11-29 Completed University of 00:00:00 [facility] Influenza Virus 2019-11-29 Completed Universit y of Vaccine Quad .5 mL 00:00:00 [place] [facility] 6+ MO Branch HPV9 2019-11-29 Completed University of 00:00:00 [facility] Influenza Virus 2019-11-29 Completed Universit y of Vaccine Quad .5 mL 00:00:00 [place] [facility] 6+ MO Branch HPV9 2019-11-29 Completed University of 00:00:00 [facility] Influenza Virus 2019-11-29 Completed Universit y of Vaccine Quad .5 mL 00:00:00 [place] [facility] 6+ MO Branch HPV9 2019-11-29 Completed University of 00:00:00 [facility] Influenza Virus 2019-11-29 Completed Universit y of Vaccine Quad .5 mL 00:00:00 [place] [facility] 6+ MO Branch HPV9 2019-11-29 Completed University of 00:00:00 [facility] Influenza Virus 2019-11-29 Completed Universit y of Vaccine Quad .5 mL 00:00:00 [place] [facility] 6+ MO Branch HPV9 2019-11-29 Completed University of 00:00:00 [facility] Influenza Virus 2019-11-29 Completed Universit y of Vaccine Quad .5 mL 00:00:00 [facility] 6+ MO Branch HPV9 2019-11-29 Completed University of 00:00:00 [facility] Influenza Virus 2019-11-29 Completed Universit y of Vaccine Quad .5 mL 00:00:00 [place] [facility] IM 6+ MO Branch HPV9 2019-11-29 Completed University of 00:00:00 [facility] Influenza Virus 2019-11-29 Completed Universit y of Vaccine Quad .5 mL 00:00:00 [place] [facility] IM 6+ MO Branch HPV9 2019-11-29 Completed University of 00:00:00 [facility] Influenza Virus 2019-11-29 Completed Universit y of Vaccine Quad .5 mL 00:00:00 [place] [facility] IM 6+ MO Branch HPV9 2019-11-29 Completed University of 00:00:00 [facility] Influenza Virus 2019-11-29 Completed Universit y of Vaccine [place] .5 mL 00:00:00 [facility] 6+ MO Branch HPV9 2019-11-29 Completed University of 00:00:00 [facility] Influenza Virus 2019-11-29 Completed Universit y of Vaccine Quad .5 mL 00:00:00 [place] [facility] 6+ MO Branch HPV9 2019-11-29 Completed University of 00:00:00 [facility] Influenza Virus 2019-11-29 Completed Universit y of Vaccine Quad .5 mL 00:00:00 [facility] 6+ MO Branch HPV9 2019-11-29 Completed University of 00:00:00 [facility] Influenza Virus 2019-11-29 Completed Universit y of Vaccine Quad .5 mL 00:00:00 [facility] 6+ MO Branch HPV9 2019-11-29 Completed University of 00:00:00 [facility] Influenza Virus 2019-11-29 Completed Universit y of Vaccine Quad .5 mL 00:00:00 [place] [facility] IM 6+ MO Branch HPV9 2019-11-29 Completed University of 00:00:00 [facility] Influenza Virus 2019-11-29 Completed Universit y of Vaccine Quad .5 mL 00:00:00 [facility] 6+ MO Branch HPV9 2019-11-29 Completed University of 00:00:00 [facility] HPV9 2017-08-13 Completed University of 00:00:00 [facility] Rho (d) Immune 2017-08-13 Completed University of Globulin 00:00:00 [facility] Influenza Virus 2017-08-13 Completed Universit y of Vaccine Quad IM 3+ 00:00:00 [facility] HPV9 2017-08-13 Completed University of 00:00:00 [facility] Rho (d) Immune 2017-08-13 Completed University of Globulin 00:00:00 [facility] Influenza Virus 2017-08-13 Completed Universit y of Vaccine Quad IM 3+ 00:00:00 [facility] HPV9 2017-08-13 Completed University of 00:00:00 [facility] Rho (d) Immune 2017-08-13 Completed University of Globulin 00:00:00 [facility] Influenza Virus 2017-08-13 Completed Universit y of Vaccine Quad IM 3+ 00:00:00 [facility] HPV9 2017-08-13 Completed University of 00:00:00 [facility] Rho (d) Immune 2017-08-13 Completed University of Globulin 00:00:00 [facility] Influenza Virus 2017-08-13 Completed Universit y of Vaccine Quad IM 3+ 00:00:00 [facility] HPV9 2017-08-13 Completed University of 00:00:00 [facility] Rho (d) Immune 2017-08-13 Completed University of Globulin 00:00:00 [facility] Influenza Virus 2017-08-13 Completed Universit y of Vaccine Quad IM 3+ 00:00:00 [facility] HPV9 2017-08-13 Completed University of 00:00:00 [facility] Rho (d) Immune 2017-08-13 Completed University of Globulin 00:00:00 [facility] Influenza Virus 2017-08-13 Completed Universit y of Vaccine Quad IM 3+ 00:00:00 [facility] HPV9 2017-08-13 Completed University of 00:00:00 [facility] Rho (d) Immune 2017-08-13 Completed University of Globulin 00:00:00 [facility] Influenza Virus 2017-08-13 Completed Universit y of Vaccine Quad IM 3+ 00:00:00 [facility] HPV9 2017-08-13 Completed University of 00:00:00 [facility] Rho (d) Immune 2017-08-13 Completed University of Globulin 00:00:00 [facility] Influenza Virus 2017-08-13 Completed Universit y of Vaccine Quad IM 3+ 00:00:00 [facility] HPV9 2017-08-13 Completed University of 00:00:00 [facility] Rho (d) Immune 2017-08-13 Completed University of Globulin 00:00:00 [facility] Influenza Virus 2017-08-13 Completed Universit y of Vaccine Quad IM 3+ 00:00:00 [facility] HPV9 2017-08-13 Completed University of 00:00:00 [facility] Rho (d) Immune 2017-08-13 Completed University of Globulin 00:00:00 [facility] Influenza Virus 2017-08-13 Completed Universit y of Vaccine Quad IM 3+ 00:00:00 [facility] HPV9 2017-08-13 Completed University of 00:00:00 [facility] Rho (d) Immune 2017-08-13 Completed University of Globulin 00:00:00 [facility] Influenza Virus 2017-08-13 Completed Universit y of Vaccine Quad IM 3+ 00:00:00 [facility] HPV9 2017-08-13 Completed University of 00:00:00 [facility] Rho (d) Immune 2017-08-13 Completed University of Globulin 00:00:00 [facility] Influenza Virus 2017-08-13 Completed Universit y of Vaccine Quad IM 3+ 00:00:00 [facility] HPV9 2017-08-13 Completed University of 00:00:00 [facility] Rho (d) Immune 2017-08-13 Completed University of Globulin 00:00:00 [facility] Influenza Virus 2017-08-13 Completed Universit y of Vaccine Quad IM 3+ 00:00:00 [facility] HPV9 2017-08-13 Completed University of 00:00:00 [facility] Rho (d) Immune 2017-08-13 Completed University of Globulin 00:00:00 [facility] Influenza Virus 2017-08-13 Completed Universit y of Vaccine Quad IM 3+ 00:00:00 [facility] HPV9 2017-08-13 Completed University of 00:00:00 [facility] Rho (d) Immune 2017-08-13 Completed University of Globulin 00:00:00 [facility] Influenza Virus 2017-08-13 Completed Universit y of Vaccine Quad IM 3+ 00:00:00 [facility] HPV9 2017-08-13 Completed University of 00:00:00 [facility] Rho (d) Immune 2017-08-13 Completed University of Globulin 00:00:00 [facility] Influenza Virus 2017-08-13 Completed Universit y of Vaccine Quad IM 3+ 00:00:00 [facility] HPV9 2017-08-13 Completed [facility] 00:00:00 [facility] Rho (d) Immune 2017-08-13 Completed University of Globulin 00:00:00 [facility] Influenza Virus 2017-08-13 Completed Universit y of [facility] IM 3+ 00:00:00 [facility] HPV9 2017-08-13 Completed [facility] of 00:00:00 [facility] Rho (d) Immune 2017-08-13 Completed [facility] Globulin 00:00:00 [facility] Influenza Virus 2017-08-13 Completed Universit y of Vacc[facility] IM 3+ 00:00:00 [facility] HPV9 2017-08-13 Completed [facility] of 00:00:00 [facility] Rho (d) Immune 2017-08-13 Completed [facility] of Globulin 00:00:00 [facility] Influenza Virus 2017-08-13 Completed Universit y of Vacc[facility] IM 3+ 00:00:00 [facility] HPV9 2017-08-13 Completed [facility] of 00:00:00 [facility] Rho (d) Immune 2017-08-13 Completed [facility] of Globulin 00:00:00 [facility] Influenza Virus 2017-08-13 Completed Universit y of Vaccine [facility] IM 3+ 00:00:00 [facility] HPV9 2017-08-13 Completed [facility] of 00:00:00 [facility] Rho (d) Immune 2017-08-13 Completed [facility] of Globulin 00:00:00 [facility] Influenza Virus 2017-08-13 Completed Universit y of Vaccine [facility] IM 3+ 00:00:00 [facility] HPV9 2017-08-13 Completed [facility] 00:00:00 [facility] HPV9 2017-08-13 Completed [facility] of 00:00:00 [facility] Rho (d) Immune 2017-08-13 Completed [facility] of Globulin 00:00:00 [facility] Influenza Virus 2017-08-13 Completed Universit y of Vacc[facility] IM 3+ 00:00:00 [facility] Rho (d) Immune 2017-08-13 Completed [facility] of Globulin 00:00:00 [facility] HPV9 2017-08-13 Completed [facility] of 00:00:00 [facility] Rho (d) Immune 2017-08-13 Completed [facility] Globulin 00:00:00 [facility] Influenza Virus 2017-08-13 Completed Universit y of Vaccine [facility] IM 3+ 00:00:00 [facility] Influenza Virus 2017-08-13 Completed Universit y of Vaccine [facility] IM 3+ 00:00:00 [facility] HPV9 2017-08-13 Completed [facility] of 00:00:00 [facility] Rho (d) Immune 2017-08-13 Completed [facility] Globulin 00:00:00 [facility] Influenza Virus 2017-08-13 Completed Universit y of Vaccine [facility] IM 3+ 00:00:00 [facility] HPV9 2017-08-13 Completed [facility] of 00:00:00 [facility] Rho (d) Immune 2017-08-13 Completed [facility] Globulin 00:00:00 [facility] Influenza Virus 2017-08-13 Completed Universit y of Vaccine [facility] IM 3+ 00:00:00 [facility] HPV9 2017-08-13 Completed [facility] of 00:00:00 [facility] Rho (d) Immune 2017-08-13 Completed [facility] Globulin 00:00:00 [facility] Influenza Virus 2017-08-13 Completed Universit y of [facility] IM 3+ 00:00:00 [facility] HPV9 2017-08-13 Completed [facility] of 00:00:00 [facility] Rho (d) Immune 2017-08-13 Completed [facility] Globulin 00:00:00 [facility] Influenza Virus 2017-08-13 Completed [facility]it y of Vaccine [facility] IM 3+ 00:00:00 [facility] HPV9 2017-08-13 Completed [facility] of 00:00:00 [facility] Rho (d) Immune 2017-08-13 Completed [facility] Globulin 00:00:00 [facility] Influenza Virus 2017-08-13 Completed [facility]it y of Vaccine [facility] IM 3+ 00:00:00 [facility] HPV9 2017-08-13 Completed [facility] of 00:00:00 [facility] Rho (d) Immune 2017-08-13 Completed [facility] Globulin 00:00:00 [facility] Influenza Virus 2017-08-13 Completed [facility]it y of Vaccine [facility] IM 3+ 00:00:00 [facility] HPV9 2017-08-13 Completed [facility] of 00:00:00 [facility] Rho (d) Immune 2017-08-13 Completed [facility] Globulin 00:00:00 [facility] Influenza Virus 2017-08-13 Completed [facility]it y of Vaccine [facility] IM 3+ 00:00:00 [facility] HPV9 2017-08-13 Completed [facility] of 00:00:00 [facility] Rho (d) Immune 2017-08-13 Completed [facility] of Globulin 00:00:00 [facility] Influenza Virus 2017-08-13 Completed Universit y of [facility] IM 3+ 00:00:00 [facility] HPV9 2017-08-13 Completed [facility] of 00:00:00 [facility] Rho (d) Immune 2017-08-13 Completed [facility] of Globulin 00:00:00 [facility] Influenza Virus 2017-08-13 Completed Universit y of Vaccine [facility] IM 3+ 00:00:00 [facility] HPV9 2017-08-13 Completed [facility] of 00:00:00 [facility] Rho (d) Immune 2017-08-13 Completed [facility] of Globulin 00:00:00 [facility] Influenza Virus 2017-08-13 Completed Universit y of Vaccine [facility] IM 3+ 00:00:00 [facility] HPV9 2017-08-13 Completed [facility] of 00:00:00 [facility] Rho (d) Immune 2017-08-13 Completed [facility] of Globulin 00:00:00 [facility] Influenza Virus 2017-08-13 Completed Universit y of Vaccine [facility] IM 3+ 00:00:00 [facility] HPV9 2017-08-13 Completed [facility] of 00:00:00 [facility] Rho (d) Immune 2017-08-13 Completed [facility] of Globulin 00:00:00 [facility] Influenza Virus 2017-08-13 Completed [facility]it y of Vaccine [facility] IM 3+ 00:00:00 [facility] HPV9 2017-08-13 Completed [facility] of 00:00:00 [facility] Rho (d) Immune 2017-08-13 Completed [facility] of Globulin 00:00:00 [facility] Influenza Virus 2017-08-13 Completed Universit y of [facility]ine [facility] IM 3+ 00:00:00 [facility] Tdap 2017-08-08 Completed [facility] of 00:00:00 [facility] Tdap 2017-08-08 Completed [facility] of 00:00:00 [facility] Tdap 2017-08-08 Completed [facility] of 00:00:00 [facility] Tdap 2017-08-08 Completed [facility] of 00:00:00 [facility] Tdap 2017-08-08 Completed [facility] of 00:00:00 [facility] Tdap 2017-08-08 Completed [facility] of 00:00:00 [facility] Tdap 2017-08-08 Completed [facility] 00:00:00 [facility] Tdap 2017-08-08 Completed University of 00:00: [facility] Tdap 2017-08-08 Completed University of 00:00: [facility] Tdap 2017-08-08 Completed [facility] of 00:00: [facility] Tdap 2017-08-08 Completed University of 00:00: [facility] Tdap 2017-08-08 Completed University of 00:00: [facility] TDAP 2017-08-08 Completed [facility] of 00:00: [facility] TDAP 2017-08-08 Completed [facility] of 00:00:00 [facility] TDAP 2017-08-08 Completed [facility] of 00:00:00 [facility] TDAP 2017-08-08 Completed [facility] of 00:00:00 [facility] TDAP 2017-08-08 Completed [facility] of 00:00:00 [facility] TDAP 2017-08-08 Completed [facility] of 00:00:00 [facility] TDAP 2017-08-08 Completed [facility] of 00:00:00 [facility] TDAP 2017-08-08 Completed [facility] of 00:00:00 [facility] TDAP 2017-08-08 Completed [facility] of 00:00:00 [facility] Tdap 2017-08-08 Completed [facility] of 00:00:00 [facility] TDAP 2017-08-08 Completed [facility] of 00:00:00 [facility] TDAP 2017-08-08 Completed [facility] of 00:00:00 [facility] TDAP 2017-08-08 Completed [facility] of 00:00:00 [facility] TDAP 2017-08-08 Completed [facility] of 00:00:00 [facility] TDAP 2017-08-08 Completed [facility] of 00:00:00 [facility] TDAP 2017-08-08 Completed [facility] of 00:00:00 [facility] TDAP 2017-08-08 Completed [facility] of 00:00:00 [facility] TDAP 2017-08-08 Completed [facility] of 00:00:00 [facility] TDAP 2017-08-08 Completed [facility] of 00:00:00 [facility] TDAP 2017-08-08 Completed [facility] of 00:00:00 [facility] TDAP 2017-08-08 Completed [facility] 00:00:00 [facility] TDAP 2017-08-08 Completed [facility] 00:00:00 [facility] TDAP 2017-08-08 Completed [facility] 00:00:00 [facility] TDAP 2017-08-08 Completed [facility] of 00:00:00 [facility] Tdap 2017-08-08 Completed [facility] of 00:00:00 [facility] Influenza Virus 2016-02-29 Completed Universit y of Vaccine [facility] IM 3+ 00:00:00 [facility] Influenza Virus 2016-02-29 Completed Universit y of Vaccine [facility] IM 3+ 00:00:00 [facility] Influenza Virus 2016-02-29 Completed Universit y of Vaccine [facility] IM 3+ 00:00:00 [facility] Influenza Virus 2016-02-29 Completed Universit y of Vaccine [facility] IM 3+ 00:00:00 [facility] Influenza Virus 2016-02-29 Completed Universit y of Vaccine [facility] IM 3+ 00:00:00 [facility] Influenza Virus 2016-02-29 Completed Universit y of Vaccine [facility] IM 3+ 00:00:00 [facility] Influenza Virus 2016-02-29 Completed Universit y of Vaccine [facility] IM 3+ 00:00:00 [facility] Influenza Virus 2016-02-29 Completed Universit y of Vaccine [facility] IM 3+ 00:00:00 [facility] Influenza Virus 2016-02-29 Completed Universit y of Vaccine [facility] IM 3+ 00:00:00 [facility] Influenza Virus 2016-02-29 Completed Universit y of Vaccine [facility] IM 3+ 00:00:00 [facility] Influenza Virus 2016-02-29 Completed Universit y of Vaccine [facility] IM 3+ 00:00:00 [facility] Influenza Virus 2016-02-29 Completed Universit y of Vaccine [facility] IM 3+ 00:00:00 [facility] Influenza Virus 2016-02-29 Completed Universit y of Vaccine [facility] IM 3+ 00:00:00 [facility] Influenza Virus 2016-02-29 Completed Universit y of Vaccine [facility] IM 3+ 00:00:00 [facility] Influenza Virus 2016-02-29 Completed Universit y of Vaccine [facility] IM 3+ 00:00:00 [facility] Influenza Virus 2016-02-29 Completed Universit y of Vaccine [facility] IM 3+ 00:00:00 [facility] Influenza Virus 2016-02-29 Completed Universit y of Vaccine [facility] IM 3+ 00:00:00 [facility] Influenza Virus 2016-02-29 Completed Universit y of Vaccine [facility] IM 3+ 00:00:00 [facility] Influenza Virus 2016-02-29 Completed Universit y of Vaccine [facility] IM 3+ 00:00:00 [facility] Influenza Virus 2016-02-29 Completed Universit y of Vaccine [facility] IM 3+ 00:00:00 [facility] Influenza Virus 2016-02-29 Completed Universit y of Vaccine [facility] IM 3+ 00:00:00 [facility] Influenza Virus 2016-02-29 Completed Universit y of Vaccine [facility] IM 3+ 00:00:00 [facility] Influenza Virus 2016-02-29 Completed Universit y of Vaccine [facility] IM 3+ 00:00:00 [facility] Influenza Virus 2016-02-29 Completed Universit y of Vaccine [facility] IM 3+ 00:00:00 [facility] Influenza Virus 2016-02-29 Completed Universit y of Vaccine [facility] IM 3+ 00:00:00 [facility] Influenza Virus 2016-02-29 Completed Universit y of Vaccine [facility] IM 3+ 00:00:00 [facility] Influenza Virus 2016-02-29 Completed Universit y of Vaccine [facility] IM 3+ 00:00:00 [facility] Influenza Virus 2016-02-29 Completed Universit y of Vaccine [facility] IM 3+ 00:00:00 [facility] Influenza Virus 2016-02-29 Completed Universit y of Vaccine [facility] IM 3+ 00:00:00 [facility] Influenza Virus 2016-02-29 Completed Universit y of Vaccine [facility] IM 3+ 00:00:00 [facility] Influenza Virus 2016-02-29 Completed Universit y of Vaccine [facility] IM 3+ 00:00:00 [facility] Influenza Virus 2016-02-29 Completed Universit y of Vaccine [facility] IM 3+ 00:00:00 [facility] Influenza Virus 2016-02-29 Completed Universit y of Vaccine [facility] IM 3+ 00:00:00 [facility] Influenza Virus 2016-02-29 Completed Universit y of Vaccine [facility] IM 3+ 00:00:00 [facility] Influenza Virus 2016-02-29 Completed Universit y of Vaccine [facility] IM 3+ 00:00:00 [facility] Influenza Virus 2016-02-29 Completed Universit y of Vaccine [facility] IM 3+ 00:00:00 [facility] Influenza Virus 2016-02-29 Completed Universit y of Vaccine [facility] IM 3+ 00:00:00 [facility] Vital Signs Vital Name Observation Time Observation Value Comments Source Systolic blood 2021-02-08 20:51:00 119 mm[Hg] Univer sity of pressure [facility] Diastolic blood 2021-02-08 20:51:00 76 mm[Hg] Unive rsity of pressure [facility] Heart rate 2021-02-08 20:51:00 83 /min Universi ty of [facility] Body temperature 2021-02-08 20:51:00 36.78 Heidi Univ ersity of [facility] Respiratory rate 2021-02-08 20:51:00 16 /min Univ ersity of [facility] Body height 2021-02-08 20:51:00 160 cm Universi ty of [facility] Body weight 2021-02-08 20:51:00 96.645 kg Universi ty of [facility] BMI 2021-02-08 20:51:00 37.74 kg/m2 [facility] Systolic blood 2021-02-08 20:51:00 119 mm[Hg] Univer sity of pressure [facility] Diastolic blood 2021-02-08 20:51:00 76 mm[Hg] Unive rsity of pressure [facility] Heart rate 2021-02-08 20:51:00 83 /min Universi ty of [facility] Body temperature 2021-02-08 20:51:00 36.78 Heidi Univ ersity of [facility] Respiratory rate 2021-02-08 20:51:00 16 /min Univ ersity of [facility] Body height 2021-02-08 20:51:00 160 cm Universi ty of [facility] Body weight 2021-02-08 20:51:00 96.645 kg Universi ty of [facility] BMI 2021-02-08 20:51:00 37.74 kg/m2 [facility] ty of [facility] Systolic blood 2020-10-27 16:34:00 134 mm[Hg] Univer sity of pressure [facility] Diastolic blood 2020-10-27 16:34:00 84 mm[Hg] Unive rsity of pressure [facility] Heart rate 2020-10-27 16:34:00 78 /min Universi ty of [facility] Body temperature 2020-10-27 16:34:00 36.72 Heidi Univ ersity of [facility] Respiratory rate 2020-10-27 16:34:00 16 /min Univ ersity of [facility] Body height 2020-10-27 16:34:00 160 cm Universi ty of [facility] Body weight 2020-10-27 16:34:00 88.225 kg Universi ty of [facility] BMI 2020-10-27 16:34:00 34.45 kg/m2 Universi ty of [facility] Systolic blood 2020-10-22 19:00:00 113 mm[Hg] Univer sity of pressure [facility] Diastolic blood 2020-10-22 19:00:00 64 mm[Hg] Unive rsity of pressure [facility] Heart rate 2020-10-22 19:00:00 85 /min Universi ty of [facility] Body temperature 2020-10-22 19:00:00 37.39 Heidi Univ ersity of [facility] Respiratory rate 2020-10-22 19:00:00 18 /min Univ ersity of [facility] Oxygen saturation 2020-10-22 19:00:00 100 /min Uni versity of in Arterial blood [facility] by Pulse oximetry [place] Body weight 2020-10-22 14:53:00 86.183 kg Universi ty of [facility] BMI 2020-10-22 14:53:00 33.66 kg/m2 Universi ty of [facility] Systolic blood 2020-10-19 19:38:00 108 mm[Hg] Univer sity of pressure [facility] Diastolic blood 2020-10-19 19:38:00 80 mm[Hg] Unive rsity of pressure [facility] Heart rate 2020-10-19 19:38:00 91 /min Universi ty of [facility] Body temperature 2020-10-19 19:38:00 36.78 Heidi Univ ersity of [facility] Respiratory rate 2020-10-19 19:38:00 16 /min Univ ersity of [facility] Body height 2020-10-19 19:38:00 160 cm Universi ty of [facility] Body weight 2020-10-19 19:38:00 86.212 kg Universi ty of [facility] BMI 2020-10-19 19:38:00 33.67 kg/m2 [facility] ty [facility] Systolic blood 2020-09-30 21:38:00 125 mm[Hg] Univer sity of pressure [facility] Diastolic blood 2020-09-30 21:38:00 83 mm[Hg] Unive rsity of pressure [facility] Heart rate 2020-09-30 21:38:00 68 /min [facility]i ty [facility] Body temperature 2020-09-30 21:38:00 36.39 Heidi Univ ersity of [facility] Body weight 2020-09-30 21:38:00 88.451 kg Universi ty of [facility] BMI 2020-09-30 21:38:00 34.54 kg/m2 [facility] ty of [facility] Systolic blood 2020-09-30 21:00:00 125 mm[Hg] Univer sity of pressure [facility] Diastolic blood 2020-09-30 21:00:00 83 mm[Hg] Unive rsity of pressure [facility] Heart rate 2020-09-30 21:00:00 68 /min Universi ty of [facility] Body temperature 2020-09-30 21:00:00 36.44 Heidi Univ ersity of [facility] Respiratory rate 2020-09-30 21:00:00 16 /min Univ ersity of [facility] Body height 2020-09-30 21:00:00 160 cm [facility]i ty [facility] Body weight 2020-09-30 21:00:00 88.508 kg [facility] BMI 2020-09-30 21:00:00 34.56 kg/m2 [facility] Systolic blood 2020-09-16 21:58:00 128 mm[Hg] Univer sity of pressure [facility] Diastolic blood 2020-09-16 21:58:00 76 mm[Hg] Unive rsity of pressure [facility] Heart rate 2020-09-16 21:58:00 88 /min [facility] Body temperature 2020-09-16 21:58:00 37.06 Heidi Univ ers[facility] Respiratory rate 2020-09-16 21:58:00 16 /min Univ ersity of [facility] Body height 2020-09-16 21:58:00 160 cm [facility]i ty [facility] Body weight 2020-09-16 21:58:00 89.018 kg Universi ty of [facility] BMI 2020-09-16 21:58:00 34.76 kg/m2 Universi ty of [facility] Systolic blood 2020-04-21 14:57:00 118 mm[Hg] Univer sity of pressure [facility] Diastolic blood 2020-04-21 14:57:00 85 mm[Hg] Unive rsity of pressure [facility] Heart rate 2020-04-21 14:57:00 70 /min Universi ty of [facility] Body temperature 2020-04-21 14:57:00 36.5 Heidi Univ ersity of [facility] Respiratory rate 2020-04-21 14:57:00 14 /min Univ ersity of [facility] Body height 2020-04-21 14:57:00 160 cm Universi ty of [facility] Body weight 2020-04-21 14:57:00 95.255 kg Universi ty of [facility] BMI 2020-04-21 14:57:00 37.20 kg/m2 Universi ty of [facility] Systolic blood 2020-01-15 15:57:00 119 mm[Hg] Univer sity of pressure [facility] Diastolic blood 2020-01-15 15:57:00 81 mm[Hg] Unive rsity of pressure [facility] Heart rate 2020-01-15 15:57:00 87 /min Universi ty of [facility] Body temperature 2020-01-15 15:57:00 37 Heidi Univ ersity of [facility] Respiratory rate 2020-01-15 15:57:00 16 /min Univ ersity of [facility] Body weight 2020-01-15 15:57:00 95.255 kg last weight Universi ty of [facility] BMI 2020-01-15 15:57:00 37.20 kg/m2 Universi ty of [facility] Oxygen saturation 2020-01-15 15:57:00 97 /min Uni versity of in Arterial blood [facility] by Pulse oximetry Branch Systolic blood 2019-11-29 19:22:00 123 mm[Hg] Univer sity of pressure [facility] Diastolic blood 2019-11-29 19:22:00 87 mm[Hg] Unive rsity of pressure [facility] Heart rate 2019-11-29 19:22:00 88 /min Universi ty of [facility] Body temperature 2019-11-29 19:22:00 36.39 Heidi [facility] Respiratory rate 2019-11-29 19:22:00 16 /min [facility] height 2019-11-29 19:22:00 160 cm Universi ty [facility] Body weight 2019-11-29 19:22:00 95.425 kg [facility]i [facility] BMI 2019-11-29 19:22:00 37.27 kg/m2 [facility] Systolic blood 2019-11-22 22:23:28 135 mm[Hg] Univer sity of pressure [facility] Diastolic blood 2019-11-22 22:23:28 82 mm[Hg] Unive rsity of [facility] Heart rate 2019-11-22 22:23:28 81 /min [facility] Respiratory rate 2019-11-22 22:23:28 14 /min [facility] Oxygen saturation 2019-11-22 22:23:28 99 /min Uni versity of in Arterial blood [facility] by Pulse oximetry [place] Body temperature 2019-11-22 21:01:00 36.94 Heidi [facility] Body height 2019-11-22 21:01:00 160 cm [facility] Body weight 2019-11-22 21:01:00 81.647 kg [facility] BMI 2019-11-22 21:01:00 31.89 kg/m2 [facility] Procedures Procedure Date / Time Performed Performing Clinician [facility] e ASSIGNMENT OF BENEFITS 2021-02-08 20:18:47 Doctor Unassigned, No [facility] LACTIC ACID WHOLE 2020-10-22 19:16:00 Mike Yan [facility] CT ABDOMEN PELVIS W 2020-10-22 18:40:48 Mike Yan [facility] CONTRAST [facility] POCT TEST 2020-10-22 17:43:00 Mike Yan [facility] LIPASE 2020-10-22 16:58:00 Mike Yan [facility] MAGNESIUM 2020-10-22 16:58:00 Mike Yan [place] [facility] COMP. METABOLIC PANEL 2020-10-22 16:58:00 Mike Yan [facility] ([id number]) [facility] [place] CBC WITH DIFF 2020-10-22 16:58:00 Mike Yan [facility]ba [place] [facility] URINALYSIS 2020-10-22 16:58:00 Mike Yan [facility] [place] [facility] DISCLOSURE AND 2020-10-19 06:01:00 Doctor Unassigned, No [facility] CONSENT, MEDICAL AND Name Medical [facility] SURGICAL PROCEDURES POCT TEST 2020-09-30 21:40:00 [facility] 2020-09-16 22:00:00 Melanie Laurent Uni [facility] GARDASIL 9 (HPV 9V) 2020-04-21 15:04:36 Kirstie Koch [facility] VACCINE [facility] POCT GRP A STREP 2020-01-15 18:22:00 Tonja Watkins [facility] (MOLECULAR) [facility] GARDASIL 9 (HPV 9V) 2019-11-29 19:44:40 Kirstie Koch [facility] VACCINE [facility] FLU VACC ([id number]), 2019-11-29 19:44:40 Kirstie Koch [facility] 6+ MONTHS, IM, QUAD [facility] POCT URINALYSIS W/O 2019-11-29 19:26:00 Kirstie Koch [facility] SPECIFIC GRAVITY [facility] POCT TEST 2019-11-22 21:16:00 Violetta Baeza [facility] URINALYSIS 2019-11-22 21:13:00 [facility] PRIVACY 2019-11-22 20:55:00 Doctor Unassigned, No [facility] ASSIGNMENT OF BENEFITS 2019-11-22 20:01:56 Doctor Unassigned, No [facility] [id number] CONSENT 2019-11-22 06:01:00 Doctor Unassigned, No Unive [facility] Encounters Start End Encounter Admission Attending Care Care Encounter Source Date/Time Date/Time Type Type Clinicians Facility Department ID 2021-08-14 Emergency [facility] [id number] [facility] 15:36:52 [facility] 2021-10-19 2021-10-19 Outpatient [facility] [id number] 2021 [place] 09:42:00 09:42:[facility] 2021-10-19 2021-10-19 Outpatient [facility] [id number] 2021 [place] 09:42:00 09:42:00 [id number] 2021-10-06 2021-10-06 Outpatient [facility] [id number] 2020 [place] 05:06:00 05:06:00 1222 [facility] 2021-10-05 2021-10-05 Outpatient [facility] [id number]- 2020 [place] 11:36:00 11:36:00 [facility]21 [facility] 2021-06-14 2021-06-14 Outpatient [facility] [id number]- 2020 [place] 03:09:00 03:09:00 0907 [facility] 2021-06-14 2021-06-14 Outpatient [facility] [id number]- 2020 [place] 03:09:00 03:09:00 0830 [facility] 2021-06-14 2021-06-14 [facility] [id number] [id number] 00:00:00 00:00:00 Tanya [id number] 2021-06-09 2021-06-09 Outpatient [facility] [id number]- 2020 [place] 11:51:00 11:51:00 0825 [facility] 2021-02-09 2021-02-09 Outpatient Arabella NELSON [facility] [id number] Univers 10:30:00 10:30:00 OMAR [id number] ity o f [facility] 2021-02-08 2021-02-08 Office Mehran, [facility] [id number] Univers 15:20:35 16:19:56 Visit Melanie Bhandari ACCOUNTING DIRECTOR [id number] ity of [facility] [id number] Andrei as MATERNAL [phone] Med ica & CHILD [address] [place] [address] 2021-02-08 2021-02-08 Office Mehran [facility] [id number] [id number] 15:20:35 16:19:56 Visit Melanie Bhandari ACCOUNTING DIRECTOR [id number] [facility] [id number] MATERNAL [id number] & CHILD [address] [place] [address] 2021-02-08 2021-02-08 Outpatient R AKINPE, [facility] [id number] 2N-20 Univers 15:30:00 15:30:00 MELANIE [id number] anibal o [facility] 2021-02-08 2021-02-08 [facility] [id number] Univers 15:30:00 15:30:00 MELANIE barnett [facility] 2021-02-08 2021-02-08 Orders Doctor BARRAZA 1.2.840.114 [id number] Univers 00:00:00 00:00:00 Only Unassigned, MAHENDRA [id number] ity of [place] [facility] 4.2.7.2.686 Andrei as [phone] [address] 2021-01-28 2021-01-28 Outpatient [facility] 2020 [place] 10:55:00 10:55:00 0415 [facility] 2021-01-28 2021-01-28 Outpatient [facility] 2020 [place] 10:55:00 10:55:00 0421 [facility] 2021-01-27 2021-01-27 Outpatient [facility] 2020 [place] 06:05:00 06:05:00 0414 [facility] 2021-01-27 2021-01-27 Outpatient Cricket, [facility] [id number] c-2 00:00:00 00:00:00 Tanya [id number] 2021-01-27 2021-01-27 Outpatient Harley, [facility] [id number] b-2 00:00:00 00:00:00 Tanya [id number] 2021-01-27 2021-01-27 Outpatient Harley, [facility] [id number] [id number] 00:00:00 00:00:00 Tanya [id number] 2021-01-18 2021-01-18 Outpatient [facility] 2020 [place] 10:40:00 10:40:00 0407 [facility] 2021-01-05 2021-01-05 Patient Tato [facility] 1.2.840.114 [id number] Univers 00:00:00 00:00:00 Outreach [facility] [id number] i ty [facility] 4.2.7.2.686 Devaughn RIZO [id number] [address] 2021-01-04 2021-01-04 Outpatient [facility] 2020 [place] 02:54:00 02:54:00 0322 [facility] 2021-01-04 2021-01-04 Outpatient [facility] 2020 [place] 02:54:00 02:54:00 0330 [facility] 2021-01-04 2021-01-04 Outpatient Cricket, [facility] [id number] c-2 00:00:00 00:00:00 Tanya [id number] 2020-12-22 2020-12-22 Outpatient R [facility] [id number] -[id number] Univers 13:15:00 13:15:00 [id number] ity [facility] 2020-12-08 2020-12-08 Outpatient R AKINSIPE, [facility] [id number] [id number]-20 Univers 15:15:00 15:15:00 MELANIE [id number] ity o [facility] 2020-12-08 2020-12-08 Outpatient R AKINSIPE, [facility] [id number] Univers 15:15:00 15:15:00 MELANIE ity o [facility] 2020-11-30 2020-11-30 Outpatient R AKINSIPE, [facility] [id number] 2N-20 Univers 14:15:00 14:15:00 MELANIE [id number] ity o [facility] 2020-11-30 2020-11-30 Outpatient R AKINSIPE, [facility] [id number] Univers 14:15:00 14:15:00 MELANIE ity o [facility] 2020-11-24 2020-11-24 Outpatient R AKINSIPE, [facility] [id number] 2N-20 Univers 13:00:00 13:00:00 MELANIE [id number] ity o [facility] 2020-11-24 2020-11-24 Outpatient R AKINSIPE, [facility] [id number] Univers 13:00:00 13:00:00 MELANIE y o [facility] 2020-10-27 2020-10-27 [facility] [id number] Univers 10:27:14 11:17:41 Visit Melanie Bhandari ACCOUNTING DIRECTOR [id number] ity of [facility] [id number] Andrei as MATERNAL [phone] [facility] & CHILD [address] [place] [address] 2020-10-27 2020-10-27 Outpatient R AKINSIPE, [facility] [id number] 2N-20 Univers 10:45:00 10:45:00 MELANIE [id number] [facility] o [facility] 2020-10-27 2020-10-27 Outpatient R AKINSIPE, [facility] [id number] Univers 10:45:00 10:45:00 MELANIE ity [facility] 2020-10-26 2020-10-26 [facility] 1.2.840.114 [id number] Univers 00:00:00 00:00:00 Melanie C ACCOUNTING DIRECTOR [id number] ity of [facility] [id number] Andrei as MATERNAL [id number] [facility] & CHILD [address] [place] [address] 2020-10-23 2020-10-[address] [facility] 1.2.840.114 [id number] Univers 00:00:00 00:00:00 Melanie C ACCOUNTING DIRECTOR [id number] ity of [facility] [id number] Andrei as MATERNAL [id number] [facility] & CHILD [address] [place] [address] 2020-10-22 2020-10-22 Emergency Mike Yan [facility] 1.2.840.114 [id number] Univers 09:02:00 15:25:00 Sheba [place] [id number] i ty [facility] 4.2.7.2.686 [facility] [phone] [address] 2020-10-22 2020-10-22 Outpatient R MEHRAN, [facility] [id number] 2N-20 Univers 12:45:00 12:45:00 MELANIE Rowland107 sommery o [facility] 2020-10-22 2020-10-[address] [facility] 1.2.840.114 [id number] Univers 00:00:00 00:00:00 Melanie C ACCOUNTING DIRECTOR [id number] ity of [facility] [id number] Andrei as MATERNAL [phone] [address] 2020-10-19 2020-10-[address] [facility] [id number] [id number] Univers 13:26:02 14:20:50 Visit Melanie C ACCOUNTING DIRECTOR [id number] ity of [facility] 4.2.7.2.686 Andrei as MATERNAL [id number] [address] 2020-10-19 2020-10-19 Outpatient R MEHRAN [facility] [id number] 2N-20 Univers 13:00:00 13:00:00 MELANIE barnett o [facility] 2020-10-19 2020-10-19 Outpatient R MEHRAN, [facility] [id number] Univers 13:00:00 13:00:00 MELANIE barnett o [facility] 2020-10-19 2020-10-19 Orders Doctor CHRISTI 1.2.840.114 [id number] Univers 00:00:00 00:00:00 Only Unassigned, MAHENDRA [id number] ity of [place] [facility] 4.2.7.2.686 Andrei as [phone] [address] 2020-10-12 2020-10-12 Telephone Mehran [facility] 1.2.840.114 [id number] Univers 00:00:00 00:00:00 Melanie Bhandari ACCOUNTING DIRECTOR [id number] ity of [facility] [id number] Andrei as MATERNAL [phone] [facility] ical & CHILD [address] [place] [address] 2020-09-30 2020-09-30 [facility] 1.2 .840.114 [id number] Univers 15:09:54 15:24:54 Visit Melanie Laurent ACCOUNTING DIRECTOR 350.1.13. 10 ity of [place] [id number] Andrei as MATERNAL [phone] [facility] ical & CHILD [address] [place] [address] 2020-09-30 2020-09-30 Office Mehran [facility] [id number] Univers 14:42:28 15:12:28 Visit Melanie Bhandari ACCOUNTING DIRECTOR [id number] ity of [address]686 Andrei as MATERNAL [phone] [facility] & [address] 2020-09-30 2020-09-30 Outpatient R MEHRAN [facility] [id number] [id number]-20 Univers 15:00:00 15:00:00 MELANIE [id number] ity o f [facility] 2020-09-30 2020-09-30 Outpatient R MEHRAN [facility] [id number] Univers 15:00:00 15:00:00 MELANIE ity o f [facility] 2020-09-17 2020-09-17 Laboratory Lab, Adc Fam Pob I [facility] 1.2. 840.114 [id number] Univers 15:24:33 15:44:33 Only Tonja Watkins [facility] [id number] ity [facility] 4.2.7.2.686 Andrei as Professio [phone] [facility] [address] [place] [facility] One 2020-09-17 2020-09-17 Outpatient R ROLAND [facility] [id number] Univers 15:20:00 15:20:00 TONJA ity [facility] 2020-09-17 2020-09-17 Outpatient R [facility] [id number] Univers 11:00:00 11:00:00 [id number] [facility] 2020-09-16 2020-09-16 [facility] [id number] Univers 15:45:11 16:13:07 Visit Melanie Bhandari ACCOUNTING DIRECTOR [id number] ity [facility] [id number] Andrei as MATERNAL [phone] [facility] ical & CHILD 107 [facility] 2020-09-16 2020-09-16 [facility] [id number] 2N-20 Univers 16:00:00 16:00:00 MELANIE anibal o [facility] 2020-09-16 2020-09-16 [facility] [id number] Univers 16:00:00 16:00:00 MELANIE hameed [facility] 2020-04-21 2020-04-21 Nurse Visit, Ang-Rmchp Nurse [facility] 1.2 .840.114 [id number] Univers 09:44:13 09:59:13 Visit Melanie Laurent ACCOUNTING DIRECTOR 350.1.13. 10 ity [facility] 4.2.7.2.686 Andrei as MATERNAL [phone] [facility] ical & CHILD 107 [facility] 2020-04-21 2020-04-21 Outpatient R [facility] [id number] Univers 09:30:00 09:30:00 [facility] 2020-04-21 2020-04-21 Outpatient R MEHRAN, [facility] [id number] Univers 09:30:00 09:30:00 MELANIE hameed [facility] 2020-04-07 2020-04-07 Outpatient R [facility] [id number] Univers 14:00:00 14:00:00 [id number] ity [facility] 2020-04-07 2020-04-07 Outpatient R [facility] [id number] Univers 14:00:00 14:00:00 ity of [facility] 2020-02-28 2020-02-28 Outpatient R [facility] [id number] Univers 14:30:00 14:30:00 [id number] ity [facility] 2020-01-30 2020-01-30 [facility] [id number] Univers 00:00:00 00:00:00 Kirstie Diaz ACCOUNTING DIRECTOR [id number] it y of [facility] 4.2.7.2.686 Andrei as MATERNAL [id number] Med ical & CHILD 107 [facility] 2020-01-17 2020-01-17 Telephone [facility] [id number] [id number] Univers 00:00:00 00:00:00 Tonja A HEALTH 350.1.13.10 i ty of [place] 4.2.7.2.686 [facility] [place] [phone] [facility] & [facility] 2020-01-17 2020-01-17 Telephone [facility] 1.2.836.467 [id number] Univers 00:00:00 00:00:00 Tonja A HEALTH 350.1.13.10 i ty [place] 4.2.7.2.686 [facility] [phone] [facility] & [address] [facility] 2020-01-15 2020-01-15 Urgent Pob1, Acute Care Clinic [facility] 1. 2.840.114 [id number] Univers 10:46:12 11:06:12 Care Jemma [facility] 350.1.13.10 ity [facility] 4.2.7.2.686 Andrei as Professio [phone] [facility] [address] [place] [address] Building [facility] 2020-01-15 2020-01-15 Outpatient R [facility] [id number] Univers 11:00:00 11:00:00 ity [facility] 2020-01-15 2020-01-15 [facility] [id number] Univers 11:00:00 11:00:00 TONJA ity [facility] 2020-01-15 2020-01-15 Telephone Mya, Acute [facility] 1.2.840.114 [id number] Univers 00:00:00 00:00:00 [facility] [id number] ity [facility] 4.2.7.2.686 Andrei as Professio [phone] Az dical [address] Office Building One 2020-01-07 2020-01-07 Outpatient R [facility] [id number] Univers 14:00:00 14:00:00 [id number] ity [facility] 2020-01-07 2020-01-07 Outpatient R [facility] [id number] Univers 14:00:00 14:00:00 ity [facility] 2020-01-07 2020-01-07 [facility]phone [facility] 1.2.840.114 [id number] Univers 00:00:00 00:00:00 Kirstie Diaz ACCOUNTING DIRECTOR [id number] it y of [facility] 4.2.7.2.686 Andrei as MATERNAL [id number] Med ical & CHILD [address] [place] [address] 2020-01-05 2020-01-05 [facility]phone [facility] 1.2.840.114 [id number] Univers 00:00:00 00:00:00 Kirstie Diaz ACCOUNTING DIRECTOR [id number] it y of [facility] 4.2.7.2.686 Andrei as MATERNAL [phone] Med ical & CHILD [address] [place] [address] 2019-12-13 2019-12-13 [facility] [id number] Univers 14:30:00 14:30:00 KIRSTIE [facility] 2019-12-11 2019-12-11 [facility]phone [facility] 1.2.840.114 [id number] Univers 00:00:00 00:00:00 Kirstie Diaz ACCOUNTING DIRECTOR [id number] it y of [facility] 4.2.7.2.686 Andrei as MATERNAL [phone] Med ical & CHILD [address] [place] [address] 2019-12-02 2019-12-02 [facility]phone [facility] 1.2.840.114 [id number] Univers 00:00:00 00:00:00 Kirstie Emily ACCOUNTING DIRECTOR [id number] it y of [facility] 4.2.7.2.686 Andrei as MATERNAL [phone] [facility] & CHILD [address] [place] [address] 2019-11-29 2019-11-29 Outpatient R [facility] [id number] Univers 13:15:00 14:20:38 KIRSTIE ity [facility] 2019-11-29 2019-11-29 Office [facility] [id number] Univers 13:03:57 14:20:38 Visit Kirstie Emily ACCOUNTING DIRECTOR 350.1.13.10 it y of [facility] 4.2.7.2.686 Andrei as MATERNAL [phone] [facility] & [address] 2019-11-22 2019-11-22 Emergency [facility] 1.2.840.114 [id number] Univers 15:03:06 16:48:00 Violetta Callahan [place] 350.1.13.10 ity of [place] 4.2.7.2.686 [place] [phone] [facility] [address] [place] 2019-11-22 2019-11-22 Orders Doctor CHRISTI 1.2.840.114 [id number] Univers 00:00:00 00:00:00 Only Unassigned, MAHENDRA 350.1.13.10 ity of [place] [facility] 4.2.7.2.686 Andrei as [phone] [facility] [address] [place] Results Test Description Test Time Test Comments Results Result Comments Source Lactic Acid Whole Blood 2020-10-22 19:21:00 Test Item Value Reference Range Interpretation Comme nts LACTIC ACID (test code = 3921469129) 1.62 mmol/L [facility] P[facility] W HREAFPXB3002-24-11 18:46:09CT Abdomen and Pelvis with intravenous contrast. CLINICAL HISTORY: Abdominal infection including peritonitis. DOSE: Up-to-date CT equipment and radiation dose reduction techniques wereemployed. CTDIvol: 7.63 mGy. DLP: 372 mGy-cm. TECHNIQUE : Contiguous axial imaging from the level of the lung basesthr ough the pubic symphysis were performed after the uncomplicatedadministration of Omnipaque contrast material. Coronal and sagittalreconstructions were obtained. Auto mA and/or iterative reconstruction wereused to reduce radiation dose. FINDINGS: ? Lower lungs: Clear. No pleural effusion or pericardialeffusion. Liver, Gallbladder and Spleen: Liver is slightly enlarged, 18.7 cm inlength and showed probable minimal steatosis. Spleen is upper normal insize measuring 12 x 6.3 cm. No calcified gallstonesdetected. Biliary ductand the pancreatic duct appear of normal size. Peritoneum: ?No free air or free fluid. No lymphadenopathy. Pancreas and Adrenals: ?Unremarkable pancreas and adrenal glands. Kidneys and Ureters: ?No visible calculi in the renal collecting systems. No hydroureter or hydronephrosis. Vessels: Normal. Retroperitoneum: No abnormal fluid or lymphadenopathy. Bowel: Normal appendix. Very mild diverticulosis of the sigmoid anddescending colon without any acute changes. Bladder and Reproductive Organs: IUD is in good position within the uterus.Small cysts in the ovaries and minimal fluid in the pelvis noted consistentwith physiologic changes. No gross pathology in the under distended andunopacified urinary bladder. Bones: Unremarkable. Soft tissues: Unremarkable. CONCLUSION:1. No acute findings in CT scan of abdomen and pelvis.2. Mild hepatomegaly.3. Small bilateral ovarian cysts andminimal fluid in cul-de-sac consistentwith physiologic changes. [facility], Radiant Results Inft User -10/22/2020 12:47 PM CSTCT Abdomen and Pelvis with intravenous contrast.CLINICAL HISTORY: Abdominal infection including peritonitis.DOSE: Up-to-date CT equipment and radiation dose reduction techniques wereemployed. CTDIvol: 7.63 mGy. DLP: 372 mGy-cm.TECHNIQUE : Contiguous axial imaging from the level of the lung basesthrough the pubic symphysis were performed after the uncomplicatedadministration of Omnipaque contrast material. Coronal and sagittalreconstructions were obtained. Auto mA and/or iterative reconstruction wereused to reduce radiation dose.FINDINGS: Lower lungs: Clear. No pleural effusion or pericardial effusion.Liver, Gallbladder and Spleen: Liver is slightly enlarged, 18.7 cm inlength and showed probable minimal steatosis. Spleen is upper normal insize measuring 12 x 6.3 cm. No calcified gallstones detected. Biliary ductand the pancreatic duct appear of normal size.Peritoneum: No free air or free fluid. No lymphadenopathy.Pancreas and Adrenals: Unremarkable pancreas and adrenal glands.Kidneys and Ureters: No visible calculi in the renal collecting systems. No hydroureter or hyd ronephrosis. Vessels: Normal.Retroperitoneum: No abnormal fluid or lymphadenopathy.Bowel: Normal appendix. Very mild diverticulosis of the sigmoid anddescending colon without any acute changes.Bladderand Reproductive Organs: IUD is in good position within the uterus.Small cysts in the ovaries and minimal fluid in the pelvis noted consistentwith physiologic changes. No gross pathology in the under distended andunopacified urinary bladder.Bones: Unremarkable.Soft tissues: Unremarkable.CONCLUSION:1. No acute findings in CT scan of abdomen and pelvis.2. Mild hepatomegaly.3. Small bilateral ovarian cysts and minimal fluid in cul-de-sac consistentwith physiologic changes.[facility] Hospital[facility]IN[facility]IS2021-01-07 18:22:00 Test Item Value Reference Range Interpretation Comments APPEARANCE (test code = Cloudy Clear A 5772102545) COLOR (test code = Megan Yellow A 4886433159) PH (test code = 4.8-8.0 0724976898) SP GRAVITY (test code = 1.003-1.030 0584172257) GLU U QUAL (test code = Normal Normal 4536042815) BLOOD (test code = Negative Negative 9185520788) KETONES (test code = 5 mg/dL Negative A 4805710869) PROTEIN (test code = 30 mg/dL Negative A 2887-8) UROBILIN (test code = 2.0 mg/dL Normal A 5201451758) BILIRUBIN (test code = Negative Negative 4996921339) NITRITE (test code = Negative Negative 9271163899) LEUK HALLIE (test code = 500/uL Negative A 6430496199) RBC/HPF (test code = See_Comment H [Autom ated message] 7158671616) The system [employer] generated this result transmit franklin reference range : 0 - 3 HPF. The refe rence range was not u sed to interpret th is result as normal/abnormal . WBC/HPF (test code = >182 See_Comment H [Autom ated message] 7851697195) The system [employer] generated this result transmit franklin reference range : 0 - 5 HPF. The refe rence range was not u sed to interpret th is result as normal/abnormal . BACTERIA (test code = Moderate Negative A 3709788143) MUCOUS (test code = Slight Negative LPF A 6554137982) AMORPHOUS (test code = Rare Rare HPF 6872764742) SQ EPITH (test code = HPF 6923737848) WBC CLUMPS (test code = See_Comment H [Au tomated message] 5762666171) The system [employer] generated this result transmit franklin reference range : <=1 HPF. The refere nce range was not u sed to interpret th is result as normal/abnormal . Lab Interpretation (test Abnormal code = 47090-9) [facility]. METABOLIC PANEL (21275)2020-10-22 18:11:00 Test Item Value Reference Range Interpretation Comments NA (test code = 133 mmol/L 135-145 L 7980321761) K (test code = 3.9 mmol/L 3.5-5 6753528645) CL (test code = 98 mmol/L 98-108 5417924717) CO2 TOTAL (test code = 25 mmol/L 23-31 9610562524) AGAP (test code = 2-16 6119470282) BUN (test code = 13 mg/dL 7-23 7976597839) GLUCOSE (test code = 150 mg/dL 70-110 H 3692946646) CREATININE (test code = 0.84 mg/dL 0.5-1.04 1268623915) TOTAL BILI (test code = 1.7 mg/dL 0.1-1.1 H 4770048990) CALCIUM (test code = 9.5 mg/dL 8.6-10.6 6450920227) T PROTEIN (test code = 8.0 g/dL 6.3-8.2 5525913621) ALBUMIN (test code = 4.7 g/dL 3.5-5 5442925764) ALK PHOS (test code = 79 U/L 34-122 1644825627) ALTv (test code = 18 U/L 5-35 1742-6) AST(SGOT) (test code = 18 U/L 13-40 8371529736) eGFR Calculation mL/min/1.73m2 (Non-) (test code = 8832406895) eGFR Calculation mL/min/1.73m2 () (test code = 9022860844) KARTHIK (test code = KARTHIK) Association of Glomerular Filtration Rate (GFR) and Staging of Kidney Disease* + --+ --+ ------+| GFR (mL/min/1.73 m2) ?| With Kidney Damage ?| ?Without Kidney Damage+ --------+ --------+ +| ?>90 ?| ?Stage one ?| ? Normal ?+ ---+ ---+ -------+| ?60-89 ?| ?Stage two ?| ? Decreased GFR ? + --+ --+ ------+| ?30-59 ?| ?Stage three ?| ? Stage three ? + --+ --+ ------+| ?15-29 ?| ?Stage four ? | ? Stage four ?+ ---+ ---+ -------+| ?<15 (or dialysis) ? ?| ?Stage five ? | ? Stage five ?+ ---+ ---+ -------+ *Each stage assumes the associated GFR level has been in effect for at least three months. ?Stages 1 to 5, with or without kidney disease, indicate chronic kidney disease. Notes: Determination of stages one and two (with eGFR >59mL/min/1.73 m2) requires estimation of kidney damage for at least three months as defined by structural or functional abnormalities of the kidney, manifested by either:Pathological abnormalities or Markers of kidney damage (including abnormalities in the composition of the blood or urine or abnormalities in imaging tests). Lab Interpretation Abnormal (test code = 76464-0) [facility]UM2021-01-07 18:11:00 Test Item Value Reference Range Interpretation Comments MAGNESIUM (test code = 6113972141) 1.9 mg/dL 1.7-2.4 Lab Interpretation (test code = Normal 55010-9) [facility]IP[facility]2021-01-07 18:10:00 Test Item Value Reference Range Interpretation Comments LIPASE (test code = 9584173064) 45 U/L 0-220 Lab Interpretation (test code = Normal 21196-4) [facility] HospitalCB WITH BQDO5313-73-51 18:04:00 Test Item Value Reference Range Interpretation Comments WBC (test code = See_Comment H [Automated 3890-2) message] The system which generated this result transmit franklin reference range : 4.30 - 11.10 10*3/?L. The reference range was not used to interpret this result as normal/abnormal . RBC (test code = See_Comment [Automated 789-8) message] The system which generated this result transmit franklin reference range : 3.93 - 5.25 10*6/?L. The reference range was not used to interpret this result as normal/abnormal . HGB (test code = 13.2 g/dL 11.6-15 718-7) HCT (test code = 39.3 % 35.7-45.2 4544-3) MCV (test code = 86.9 fL 80.6-95.5 787-2) MCH (test code = 29.2 pg 25.9-32.8 785-6) MCHC (test code = 33.6 g/dL 31.6-35.1 786-4) RDW-SD (test code = 45.0 fL 39-49.9 62583-3) RDW-CV (test code = 14.1 % 12-15.5 788-0) PLT (test code = See_Comment L [Automated 777-3) message] The system which generated this result transmit franklin reference range : 166 - 358 10*3/ ?L. The reference range was not u sed to interpret th is result as normal/abnormal . MPV (test code = 12.8 fL 9.5-12.9 82105-1) NRBC/100 WBC (test See_Comment [Automat ed code = [id number]) message] The system which generated this result transmit franklin reference range : 0.0 - 10.0 /100 WBCs. The reference range was not used to interpret this result as normal/abnormal . NRBC x10^3 (test code <0.01 See_Comment [Auto mated = [id number]) message] The system which generated this result transmit franklin reference range : 10*3/?L. The reference range was not used to interpret this result as normal/abnormal . GRAN MAT (NEUT) % 92.7 % (test code = 770-8) IMM GRAN % (test code 1.30 % = 7186977119) LYMPH % (test code = 3.5 % 736-9) MONO % (test code = 2.4 % 5905-5) EOS % (test code = 0.0 % 713-8) BASO % (test code = 0.1 % 706-2) GRAN MAT x10^3(ANC) 17.42 10*3/uL 1.88-7.09 H (test code = 8984845759) IMM GRAN x10^3 (test 0.25 10*3/uL 0-0.06 H code = 0405658467) LYMPH x10^3 (test code 0.65 10*3/uL 1.32-3.29 L = 731-0) MONO x10^3 (test code 0.46 10*3/uL 0.33-0.92 = 742-7) EOS x10^3 (test code = <0.03 0.03-0.39 L 711-2) BASO x10^3 (test code <0.03 0.01-0.07 = 704-7) Lab Interpretation Abnormal (test code = 16713-9) [facility] [id number] 17:43:00 Test Item Value Reference Range Interpretation Comments POCT PREG (test code = 1605) negative On board controls acceptable with present C Line (test code = 3574) POCT PREG LOT # (test code = 3575) [id number] POCT PREG TEST DATE (test 06/15/2022 code = 3576) Lab Interpretation (test code = Normal 76837-2) [facility] [id number] 21:41:00 Test Item Value Reference Range Interpretation Comments POCT PREG (test code = 1605) Negative On board controls acceptable with C Yes Line (test code = 3574) POCT PREG LOT # (test code = 3575) POCT PREG TEST DATE (test code = 3576) [facility] [id number] 21:41:00 Test Item Value Reference Range Interpretation Comments POCT PREG (test code = 1605) Negative On board controls acceptable with C Yes Line (test code = 3574) POCT PREG LOT # (test code = 3575) POCT PREG TEST DATE (test code = 3576) [facility] [id number] 22:00:00 Test Item Value Reference Range Interpretation Comments POCT PREG (test code = 1605) Negative On board controls acceptable with C Yes Line (test code = 3574) POCT PREG LOT # (test code = 3575) POCT PREG TEST DATE (test code = 3576) [facility] [id number] 22:00:00 Test Item Value Reference Range Interpretation Comments POCT PREG (test code = 1605) Negative On board controls acceptable with C Yes Line (test code = 3574) POCT PREG LOT # (test code = 3575) POCT PREG TEST DATE (test code = 3576) [facility] GRP A STREP (MOLECULAR)2020-01-15 18:32:00 Test Item Value Reference Range Interpretation Comments POCT GP A STREP (test code = neg Negative - Negative 23650-1) Lab Interpretation (test code = Normal 95286-6) [facility] URINALYSIS W/O SPECIFIC [id number] 19:29:00 Test Item Value Reference Range Interpretation Comments POCT PH U (test code = 3254) 7 mg/dl 5-8 POCT U LEUK EST (test code = 2+ Negative - Negative 3263) POCT U NIT (test code = 3262) neg Negative - Negative POCT U PROT (test code = 3259) trace Negative - Negative POCT U GLU (test code = 3256) neg Negative - Negative POCT U KETONE (test code = 3258) neg Negative - Negative POCT U BLD (test code = 3257) large Negative - Negative Lab Interpretation (test code = Abnormal 49489-5) [facility] URINALYSIS W/O SPECIFIC [id number] 19:29:00 Test Item Value Reference Range Interpretation Comments POCT PH U (test code = 3254) 7 mg/dl 5-8 POCT U LEUK EST (test code = 2+ Negative - Negative 3263) POCT U NIT (test code = 3262) neg Negative - Negative POCT U PROT (test code = 3259) trace Negative - Negative POCT U GLU (test code = 3256) neg Negative - Negative POCT U KETONE (test code = 3258) neg Negative - Negative POCT U BLD (test code = 3257) large Negative - Negative Lab Interpretation (test code = Abnormal 44035-8) [facility] [id number] 19:29:00 Test Item Value Reference Range Interpretation Comments POCT PH U (test code = 3254) 7 mg/dl 5-8 POCT U LEUK EST (test code = 2+ Negative - Negative 3263) POCT U NIT (test code = 3262) neg Negative - Negative POCT U PROT (test code = 3259) trace Negative - Negative POCT U GLU (test code = 3256) neg Negative - Negative POCT U KETONE (test code = 3258) neg Negative - Negative POCT U BLD (test code = 3257) large Negative - Negative Lab Interpretation (test code = Abnormal 14019-5) [facility]33:[facility] Test Item Value Reference Range Interpretation Comments APPEARANCE (test code = Cloudy Clear A 4414712576) COLOR (test code = Yellow Yellow 2979347075) PH (test code = 4.8-8.0 9581735395) SP GRAVITY (test code = 1.003-1.030 9736597730) GLU U QUAL (test code = Normal Normal 9340264177) BLOOD (test code = 1+ Negative A 1188158416) KETONES (test code = Negative Negative 0601410128) PROTEIN (test code = Negative Negative 2887-8) UROBILIN (test code = Normal Normal 4209197058) BILIRUBIN (test code = Negative Negative 5155373202) NITRITE (test code = Negative Negative 3874651001) LEUK HALLIE (test code = 500/uL Negative A 8230964365) RBC/HPF (test code = See_Comment H [Autom ated message] 4892233687) The system [employer] generated this result transmitted ref erence range: 0 - 3 HP F. The reference range was not used to int erpret this result as normal/abnormal . WBC/HPF (test code = >182 See_Comment H [Autom ated message] 7031239931) The system [employer] generated this result transmitted ref erence range: 0 - 5 HP F. The reference range was not used to int erpret this result as normal/abnormal . BACTERIA (test code = Few Negative A 1778552435) MUCOUS (test code = Slight Negative LPF A 9264857704) SQ EPITH (test code = HPF 5679561824) Lab Interpretation (test Abnormal code = 27182-9) [facility] [id number] 21:16:00 Test Item Value Reference Range Interpretation Comments POCT PREG (test code = 1605) Negative On board controls acceptable with Present C Line (test code = 3574) POCT PREG LOT # (test code = 3575) [id number] POCT PREG TEST DATE (test 2021-05-15 code = 3576) Lab Interpretation (test code = Normal 15319-1) [facility]"
[2021-11-27 13:39] LABS: Urine Blood Trace-intact (Negative); Urine Glucose Negative (Negative); Urine Protein Negative (Negative); Urine Specific Gravity >=1.030 (1.005-1.030); Urine pH 5.5 (5.0-7.0)
[2021-11-27] MEDS ORDERED: ONDANSETRON 4 MG/2 ML VIAL ONE (13:42)
[2021-11-27] MEDS ORDERED: NA CHLORIDE 0.9% 1,000 ML ONE (13:42)
--- NOTE | 2021-11-27 14:10 | EDPHYS ---
Physician Documentation [facility] Name: Janet Pyle Age: 26 yrs Sex: Female : 1995 Arrival Date: 11/27/2021 Time: 12:33 Bed 11 Private MD: ED Physician Tai Unger HPI: 11/27 13:16 This 26 yrs old Female presents to ER via Ambulatory with complaints of Vomiting. jmm 13:16 The patient presents to the emergency department with nausea, vomiting. Onset: The jmm symptoms/episode began/occurred acutely, this morning. Possible causes: unknown. The symptoms are aggravated by nothing. The symptoms are alleviated by nothing. Associated signs and symptoms: Pertinent negatives: abdominal pain, diarrhea. It is unknown whether or not the patient has had similar symptoms in the past. 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 - Social history:: Smoking status: Patient denies any tobacco usage or history of. ROS: 13:16 Constitutional: Negative for fever, chills, and weight loss, Cardiovascular: Negative jmm for chest pain, palpitations, and edema, Respiratory: Negative for shortness of breath, cough, wheezing, and pleuritic chest pain. 13:16 Abdomen/GI: Positive for nausea and vomiting, Negative for abdominal pain, diarrhea. 13:16 All other systems are negative. Exam: 13:16 Constitutional: This is a well developed, well nourished patient who is awake, alert, jmm and in no acute distress. Head/Face: atraumatic. Eyes: EOMI, no conjunctival erythema appreciated ENT: Moist Mucus Membranes Neck: Trachea midline, Supple Chest/axilla: Normal chest wall appearance and motion. Cardiovascular: Regular rate and rhythm. No edema appreciated Respiratory: Normal respirations, no respiratory distress appreciated 13:16 Back: Normal ROM Skin: General appearance color normal MS/ Extremity: Moves all extremities, no obvious deformities appreciated, no edema noted to the lower extremities Neuro: Awake and alert Psych: Behavior is normal, Mood is normal, Patient is cooperative and pleasant 13:16 Abdomen/GI: Inspection: abdomen appears normal, Bowel sounds: normal, Palpation: abdomen is soft and non-tender, in all quadrants. Vital Signs: 12:51 BP 120 / 89; Pulse 90; Resp 18; Temp 97.6; Pulse Ox 100% on R/A; Weight 90.72 kg; ph Height 5 ft. 3 in. (160.02 cm); 15:11 BP 117 / 72; Pulse 81; Resp 18; Temp 98.0; Pulse Ox 99% on R/A; ph 12:51 Body Mass Index 35.43 (90.72 kg, 160.02 cm) ph MDM: 13:16 Patient medically screened. [facility] 14:09 Data reviewed: vital signs, nurses notes. Counseling: I had a detailed discussion with raul the patient and/or guardian regarding: the historical points, exam findings, and any diagnostic results supporting the discharge/admit diagnosis, the need for outpatient follow up, to return to the emergency department if symptoms worsen or persist or if there are any questions or concerns that arise at home. 16:58 ED course: Patient is alert and nontoxic in appearance in the ED. Abdomen is soft and jmm nontender to palpation. I do not currently suspect an acute intra-abdominal process. Patient given early appendicitis return precautions. Patient understood and agrees plan of care.. 11/27 13:17 Order name: Basic Metabolic Panel; Complete Time: 14:58 [facility] 11/27 13:17 Order name: CBC with Diff; Complete Time: 14:58 [facility] 11/27 13:17 Order name: Hepatic Function; Complete Time: 14:58 [facility] 11/27 13:17 Order name: Lipase; Complete Time: 14:58 [facility] 11/27 13:39 Order name: Urine Dipstick-Ancillary; Complete Time: 13:42 [facility] 11/27 13:47 Order name: Urine --Ancillary (enter results) 11/27 13:17 Order name: IV Saline Lock; Complete Time: 14:09 [facility] 11/27 13:17 Order name: Labs collected and sent; Complete Time: 14:09 [facility] 11/27 13:17 Order name: Urine Dipstick-Ancillary (obtain specimen); Complete Time: 13:39 [facility] 11/27 13:17 Order name: Urine Test (obtain specimen); Complete Time: 13:39 [facility] 11/27 13:48 Order name: Urine --Ancillary; Complete Time: 14:58 EDMS Administered Medications: 14:10 Drug: NS 0.9% 1000 ml Route: IV; Rate: 1 bolus; Site: right antecubital; iw 15:11 Follow up: Response: No adverse reaction; IV Status: Completed infusion; IV Intake: ph 1000ml 14:10 Drug: Ondansetron 4 mg Route: IVP; Site: right antecubital; iw 15:10 Follow up: Response: No adverse reaction; Nausea is decreased ph Disposition: 15:23 Co-signature as Attending Physician, Tai Unger MD I agree with the assessment and kdr plan of care. Disposition Summary: 11/27/21 15:01 Discharge Ordered Location: Home(11/27/21 15:01) [facility] Condition: Stable(11/27/21 15:01) [facility] Diagnosis - Vomiting [facility] Followup: [facility] - With: Private Physician - When: 2 - 3 days - Reason: Recheck today's complaints, Continuance of care, Re-evaluation by your physician Discharge Instructions: - Discharge Summary Sheet jm - Diarrhea, Adult jmm - Vomiting, Adult [facility] Forms: - Medication Reconciliation Form [facility] - Thank You Letter [facility] - Antibiotic Education [facility] - Prescription Opioid Use [facility] - Work release form eb Prescriptions: - ondansetron 4 mg Oral tablet,disintegrating - place 1 tablet by TRANSLINGUAL route every 4-6 hours; 30 tablet; Refills: 0, [facility] Product Selection Permitted Signatures: 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
--- NOTE | 2021-11-27 14:10 | ER ---
Nurse's Notes [facility] Name: Janet Pyle Age: 26 yrs Sex: Female : 1995 Arrival Date: 11/27/2021 Time: 12:33 Bed 11 Private MD: Diagnosis: Vomiting Presentation: 11/27 12:51 Chief complaint: Patient states: N/V since this morning, denies abdominal pain, fever, ph or other symptoms. Coronavirus screen: Vaccine status: Patient reports being unvaccinated. nausea, vomiting. Ebola Screen: No symptoms or risks identified at this time. Initial Sepsis Screen: Does the patient meet any 2 criteria? No. Patient's initial sepsis screen is negative. Does the patient have a suspected source of infection? No. Patient's initial sepsis screen is negative. Risk Assessment: Do you want to hurt yourself or someone else? Patient reports no desire to harm self or others. Onset of symptoms was November 27, 2021. 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 - Social history:: Smoking status: Patient denies any tobacco usage or history of. Screenin:57 Abuse screen: Denies threats or abuse. Denies injuries from another. Nutritional ph screening: No deficits noted. Tuberculosis screening: No symptoms or risk factors identified. Fall Risk None identified. Assessment: 12:57 General: Appears in no apparent distress. comfortable, well groomed, Behavior is calm, ph cooperative, appropriate for age, Denies fever. Pain: Denies pain. Neuro: Level of Consciousness is awake, alert, obeys commands, Oriented to person, place, time, situation. Cardiovascular: No deficits noted. Respiratory: No deficits noted. GI: Abdomen is non-distended, Reports nausea, vomiting, Patient currently denies abdominal pain, diarrhea. : No signs and/or symptoms were reported regarding the genitourinary system. Derm: Skin is intact, is healthy with good turgor, Skin is pink, warm \T\ dry. Musculoskeletal: Circulation, motion, and sensation intact. Range of motion: intact in all extremities. Vital Signs: 12:51 BP 120 / 89; Pulse 90; Resp 18; Temp 97.6; Pulse Ox 100% on R/A; Weight 90.72 kg; ph Height 5 ft. 3 in. (160.02 cm); 15:11 BP 117 / 72; Pulse 81; Resp 18; Temp 98.0; Pulse Ox 99% on R/A; ph 12:51 Body Mass Index 35.43 (90.72 kg, 160.02 cm) ph ED Course: 12:33 Patient arrived in ED. rg4 12:52 Triage completed. ph 12:52 Arm band placed on. ph 12:53 Milo Burroughs PA is PHCP. [facility] 12:53 Tai Unger MD is Attending Physician. [facility] 12:57 Camelia Dixon, BANDAR is Primary Nurse. ph 12:58 Patient has correct armband on for positive identification. Bed in low position. Call ph light in reach. Side rails up X 1. Pulse ox on. NIBP on. Door closed. Noise minimized. Warm blanket given. 13:40 Urine collected: clean catch specimen, cloudy. Missed attempt(s): 20 gauge in right mh5 antecubital area. 14:39 Initial lab(s) drawn, by ED staff, sent to lab. [facility] 14:39 Urine --Ancillary (enter results) Sent. [facility] 14:39 Basic Metabolic Panel Sent. [facility] 14:39 CBC with Diff Sent. [facility] 14:40 Hepatic Function Sent. [facility] 14:40 Lipase Sent. [facility] 15:11 No provider procedures requiring assistance completed. IV discontinued, intact, ph bleeding controlled, No redness/swelling at site. Pressure dressing applied. Administered Medications: 14:10 Drug: NS 0.9% 1000 ml Route: IV; Rate: 1 bolus; Site: right antecubital; iw 15:11 Follow up: Response: No adverse reaction; IV Status: Completed infusion; IV Intake: ph 1000ml 14:10 Drug: Ondansetron 4 mg Route: IVP; Site: right antecubital; iw 15:10 Follow up: Response: No adverse reaction; Nausea is decreased ph Intake: 15:11 IV: 1000ml; Total: 1000ml. ph Outcome: 14:10 Discharge ordered by . raul 15:01 Discharge ordered by . raul 15:11 Discharged to home ambulatory. ph 15:11 Condition: good 15:11 Discharge instructions given to patient, Instructed on discharge instructions, follow up and referral plans. medication usage, Demonstrated understanding of instructions, follow-up care, medications, Prescriptions given X 1. 15:12 Patient left the ED. ph Signatures: Milo Burroughs PA PA jmm Williams, Irene, BANDAR PORTILLO Camelia Dixon RN RN ph Garcia, Rubi [facility]
[2021-11-27 14:23] LABS: Absolute Lymphocytes (CBC) 2.1 K/uL (0.7-4.9); Hematocrit 39.4 % (36.0-45.0); MPV 8.4 fL (7.6-11.3); RBC Red Blood Cell Count 4.51 M/uL (3.86-4.86)
[2021-11-27 14:48] LABS: Albumin 3.9 g/dL (3.4-5.0); Bilirubin Direct 0.2 mg/dL (0-0.2); Bilirubin Total 0.4 mg/dL (0.2-1.0); Potassium 3.8 mmol/L (3.5-5.1); Protein, Total 7.9 g/dL (6.4-8.2)
[2021-11-27 15:28] VITALS: BP 117/72; TEMP 98; O2SAT 99
== END 2021-11-27 15:12 | disposition home or self-care (01) ==
LOC: ER 12:30
DX: R11.10 Vomiting, unspecified (principal)
CPT/HCPCS: 96361; 85025; 80048; 36415; 81025; 80076; 81003; 83690; 96374; 99284; J7030; J2405

== ENCOUNTER 2022-01-14 08:28 | Emergency (ER) | payer OTHER ==
--- OUTSIDE RECORDS SUMMARY | 2022-01-14 08:36 | XMS REPORT | Continuity of Care Document ---
:1995 Author Organization [facility] t Address [address] [place] [address] Care Team Providers Name Role Phone ROLAND, Mckayla Primary Care Physician Unavailable ROLAND, A Attending Clinician Unavailable DAVIDE Attending Clinician Unavailable WATERS_S Attending Clinician Unavailable Cricket Attending Clinician [phone] Arabella NELSON Attending Clinician Unavailable Akinpeyton VILLANUEVAP, C Attending Clinician MEHRAN C Attending Clinician Unavailable Doctor Unassigned, Name Attending Clinician Unavailable Lloyd Godwin DO Attending Clinician Sheba Napier Attending Clinician Visit, Nurse Attending Clinician Unavailable Lab, Fam Pob I Attending Clinician Unavailable Mckayla Ann Attending Clinician Emily Cook Attending Clinician Pob1, Care Clinic Attending Clinician Unavailable Emily KOCH Attending Clinician Unavailable Sindy Grant Attending Clinician WATERS_S Admitting Clinician Unavailable Payers Payer Name Policy Type Policy Number Effective Date Expiration Date Graham benny [facility] [id number] 2020 CHOICE MEDICAID 00:00:00 [facility] [id number] [facility] (MEDICAID REPLACEMENT - HMO) [facility] [id number] 2019 [facility] 00:00:00 [place] [id number] SHARE PROGRAM (HMO) Advance Directives Directive Decision Effective Termination Comments Source Date Date Healthcare Agents on N/A [facility] Agent Medical RelationshipCommunicationHeather [facility] [phone] (Home) Problems Condition Condition Condition Status Onset Resolution Last Treating Co mments Source Name Details Category Date Date Treatment Clinician Date History of History of Disease Active U luiz herpes herpes 4-26 [place] Other Other Disease Active Overview: Peggy isbell general general 1-04 Removed [place] of counseling [place] and advice and advice 00 10/2020 Me dical for for placed Branch contracept contracept 09/2020 demi demi management management 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, ity o f cell cell 00:00: [facility] [place] changes of changes of 00 repeat Me dical undetermin undetermin pap in Br anch ed ed 2020 significan significan ce (ASCUS) ce (ASCUS) on vaginal on vaginal cytology cytology Placental Placental Disease Active 2016-10 Uni vers abruption abruption 0-29 ity of with with 00:00: [place] coagulatio coagulatio 00 Me dical n defect, n defect, Bran ch delivered delivered Preeclamps Preeclamps Disease Active 2016-10 U kaykayers ia, ia, 0-27 ity of severe, severe, 00:00: [place] third third 00 Medical trimester trimester Bran ch Liver Liver Disease Active 2016-10 Univers disorder disorder 0-26 ity of during during 00:00: [place] 00 Medi maulik in third in third [...] liver 0-18 ity of enzymes enzymes 00:00: [place] 00 Medical Branch Rh Rh Disease Active Overview: Peggy isbell negative negative 4-16 Rhogam at ity of state in state in 00:00: 28 weeks, Andrei as antepartum antepartum 00 received Medical period period at Branch outside clinic Multiparit Multiparit Disease Active U nivers y y 4-14 ity of 00:00: [address] Obesity Obesity Disease Active Univers affecting affecting 4-14 ity of 00:00: [address] Supervisio Supervisio Disease Active U nivers n of high n of high 4-14 ity of risk risk 00:00: [place] , , 00 Me dical antepartum antepartum Br anch Allergies, Adverse Reactions, Alerts Allergy Allergy Status Severity Reaction(s) Onset Inactive Treating Comm ents Source Name Type Date Date Clinician NO KNOWN Drug Active Univers ALLERGIE Class ity of S [facility] Social History Social Habit Start Date Stop Date Quantity Comments Source Exposure to Not sure [facility] SARS-CoV-2 [facility] (event) [place] Alcohol intake 2021-02-08 2021-02-08 Current drinker Unive rsity of 00:00:00 00:00:00 of alcohol [facility] (finding) [place] Tobacco use and 2021-02-08 2021-02-08 Never used Universit y of exposure 00:00:00 00:00:00 [facility] Alcohol Comment 2017-03-15 2017-03-15 social Universit y of 00:00:00 00:00:00 [facility] Sex Assigned At [birth year] Universit y of 00:00:00 00:00:00 [facility] Smoking Status Start Date Stop Date Source Never smoker [facility] Medications Ordered Filled Start Stop Current Ordering Indication Dosage Frequency Signature Comments Components Source Medication Medication Date Date Medication? Clinician (SIG) Name Name acetaminoph Yes Take by Un chhaya en (TYLENOL 4-26 mouth. ity of ORAL) 20:53: [address] acetaminoph Yes Take by Un chhaya en (TYLENOL 4-26 mouth. ity of ORAL) 20:53: [address] acyclovir Yes [id number] 400mg Take 1 Univers 400 mg 4-26 tablet by ity of tablet 00:00: mouth 2 [place] (two) Medical times Branch daily. acyclovir Yes [id number] 400mg Take 1 Univers 400 mg 4-26 tablet by ity of tablet 00:00: mouth 2 [place] (two) Medical times [place] daily. cefTRIAXone 2020- No 1000mg 1,000 mg, Univers (ROCEPHIN) 10-22 IV ity of 1,000 mg in 20:15: 20:45 [place]gy[place], [place] NaCl 0.9% 00 :00 ONCE, 1 Medical [...] dose, Yesica Medica l mL) 10/22/20 at [place] injection 1245, 120 mL Routine acetaminoph 2020- [...] mg 00 :00 ONCE, 1 Medical dose, [facility] 10/22/20 at 1145, JUAN RAMON
Fa culty member approving Restricted medication : Mike YAN NaCl 0.9% 2020- No 1000mL at 999 Uni vers (NS) bolus 10-22 mL/hr, ity of infusion 17:45: 19:00 1,000 mL, Andrei as 1,000 mL 00 :00 IV Medical Infusion, Branch ONCE, 1 dose, [facility] 10/22/20 at 1145, STAT ibuprofen Yes [id number] 600mg Take 1 U nivers 600 mg 10-22 tablet by ity of tablet 00:00: mouth [place] 00 every 6 Medical (six) Branch hours as needed for Pain (scale 4-6). ondansetron 2021-0 Yes [id number] 4mg Take 1 Univers (ZOFRAN 1-07 tablet by ity of ODT) 4 mg 00:00: mouth [place] disintegrat 00 every 8 Medic al ing tablet (eight) Branch hours as needed for Nausea and Vomiting (N/V). ibuprofen 2020-0 Yes [id number] 600mg Take 1 U nivers 600 mg 1-07 tablet by ity of tablet 00:00: mouth [place] 00 every 6 Medical (six) Branch hours as needed for Pain (scale 4-6). ondansetron 2020-0 Yes [id number] 4mg Take 1 Univers (ZOFRAN 1-07 tablet by ity of ODT) 4 mg 00:00: mouth [place] disintegrat 00 every 8 Medic al ing tablet (eight) Branch hours as needed for Nausea and Vomiting (N/V). ibuprofen 2020-0 Yes [id number] 600mg Take 1 U nivers 600 mg 1-07 tablet by ity of tablet 00:00: mouth [place] 00 every 6 Medical (six) Branch hours as needed for Pain (scale 4-6). ondansetron 2020-0 Yes [id number] 4mg Take 1 Univers (ZOFRAN 1-07 tablet by ity of ODT) 4 mg 00:00: mouth [place] disintegrat 00 every 8 Medic al ing tablet (eight) Branch hours as needed for Nausea and Vomiting (N/V). ibuprofen 2020-0 Yes [id number] 600mg Take 1 U nivers 600 mg 1-07 tablet by ity of tablet 00:00: mouth [place] 00 every 6 Medical (six) Branch hours as needed for Pain (scale 4-6). ondansetron 1-0 Yes [id number] 4mg Take 1 Univers (ZOFRAN 1-07 tablet by ity of ODT) 4 mg 00:00: mouth [place] disintegrat 00 every 8 Medic al ing tablet (eight) Branch hours as needed for Nausea and Vomiting (N/V). ibuprofen 202-0 Yes [id number] 600mg Take 1 U nivers 600 mg 1-07 tablet by ity of tablet 00:00: mouth [place] 00 every 6 Medical (six) Branch hours as needed for Pain (scale 4-6). ondansetron 2021-0 Yes [id number] 4mg Take 1 Univers (ZOFRAN 1-07 tablet by ity of ODT) 4 mg 00:00: mouth [place] disintegrat 00 every 8 Medic al ing tablet (eight) Branch hours as needed for Nausea and Vomiting (N/V). ibuprofen 202-0 Yes [id number] 600mg Take 1 U nivers 600 mg 1-07 tablet by ity of tablet 00:00: mouth [place] 00 every 6 Medical (six) Branch hours as needed for Pain (scale 4-6). ondansetron 2020-0 Yes [id number] 4mg Take 1 Univers (ZOFRAN 1-07 tablet by ity of ODT) 4 mg 00:00: mouth [place] disintegrat 00 every 8 Medic al ing tablet (eight) Branch hours as needed for Nausea and Vomiting (N/V). ibuprofen 2020-0 Yes [id number] 600mg Take 1 U nivers 600 mg 1-07 tablet by ity of tablet 00:00: mouth [place] 00 every 6 Medical (six) Branch hours as needed for Pain (scale 4-6). ondansetron 2020-0 Yes [id number] 4mg Take 1 Univers (ZOFRAN 1-07 tablet by ity of ODT) 4 mg 00:00: mouth [place] disintegrat 00 every 8 Medic al ing tablet (eight) Branch hours as needed for Nausea and Vomiting (N/V). ibuprofen 2020-0 Yes [id number] 600mg Take 1 U nivers 600 mg 1-07 tablet by ity of tablet 00:00: mouth [place] 00 every 6 Medical (six) Branch hours as needed for Pain (scale 4-6). ondansetron 2020-0 Yes [id number] 4mg Take 1 Univers (ZOFRAN 1-07 tablet by ity of ODT) 4 mg 00:00: mouth [place] disintegrat 00 every 8 Medic al ing tablet (eight) Branch hours as needed for Nausea and Vomiting (N/V). ibuprofen 2020-0 Yes [id number] 600mg Take 1 U nivers 600 mg 1-07 tablet by ity of tablet 00:00: mouth [place] 00 every 6 Medical (six) Branch hours as needed for Pain (scale 4-6). ondansetron 2021-0 Yes [id number] 4mg Take 1 Univers (ZOFRAN 1-07 tablet by ity of ODT) 4 mg 00:00: mouth [place] disintegrat 00 every 8 Medic al ing tablet (eight) Branch hours as needed for Nausea and Vomiting (N/V). cephALEXin 2020- No [id number] 500mg Take 1 Univers (KEFLEX) 10-22 capsule by ity of 500 mg 00:00: 05:59 mouth 3 [place] capsule 00 :00 (three) Medical times Branch daily for 10 days. cephALEXin 2020- No [id number] 500mg Take 1 Univers (KEFLEX) 10-22 capsule by ity of 500 mg 00:00: 05:59 mouth 3 [place] capsule 00 :00 (three) Medical times Branch daily for 10 days. cephALEXin 2020- No [id number] 500mg Take 1 Univers (KEFLEX) 10-22 capsule by ity of 500 mg 00:00: 05:59 mouth 3 [place] capsule 00 :00 (three) Medical times Branch daily for 10 days. cephALEXin 2020- No [id number] 500mg Take 1 Univers (KEFLEX) 10-22 capsule by ity of 500 mg 00:00: 05:59 mouth 3 [place] capsule 00 :00 (three) Medical times Branch daily for 10 days. cephALEXin 2020- No [id number] 500mg Take 1 Univers (KEFLEX) 10-22 capsule by ity of 500 mg 00:00: 05:59 mouth 3 [place] capsule 00 :00 (three) Medical times Branch daily for 10 days. 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 levonorgest 2020- No 1{devic 1 Device, Univers reL 10-19-04 e} Intrauteri ity of (KYLEENA) 21:30: 20:20 [place], ONCE, [place] I[place] 1 00 :00 1 dose, Continuous [employer] Operator Mon10/19/20 Branch at 1530, Routine levonorgest 2021- No 1{devic Un chhaya reL 1-04 e} ity of (KYLEENA) 21:30: 20:20 [place] IUD 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 ity of ORAL) 15:58: [address] acetaminoph 2020-0 Yes Take by Un chhaya en (TYLENOL 4-01 mouth. ity of ORAL) 15:58: [address] acetaminoph 2020-0 Yes Take by Un chhaya en (TYLENOL 4-01 mouth. ity of ORAL) 15:58: [address] acetaminoph 2020-0 Yes Take by Un chhaya en (TYLENOL 4-01 mouth. ity of ORAL) 15:58: [address] acetaminoph 2020-0 Yes Take by Un chhaya en (TYLENOL 4-01 mouth. ity of ORAL) 15:58: [place] 34 Medical Branch acetaminoph 2020-0 Yes Take by Un chhaya en (TYLENOL 4-01 mouth. ity of ORAL) 15:58: [place] [address] Medical Branch acetaminoph 2020-0 Yes Take by Un chhaya en (TYLENOL 4-01 mouth. ity of ORAL) 15:58: [place] [address] Medical Branch acetaminoph 2020-0 Yes Take by Un chhaya en (TYLENOL 4-01 mouth. ity of ORAL) 15:58: [place] [address] Medical Branch acetaminoph 2020-0 Yes Take by Un chhaya en (TYLENOL 4-01 mouth. ity of ORAL) 15:58: [place] [address] Medical Branch acetaminoph 2020-0 Yes Take by Un chhaya en (TYLENOL 4-01 mouth. ity of ORAL) 15:58: [place] [address] Medical Branch acetaminoph 2020-0 Yes Take by Un chhaya en (TYLENOL 4-01 mouth. ity of ORAL) 15:58: [place] [address] Medical Branch acetaminoph 2020-0 Yes Take by Un chhaya en (TYLENOL 4-01 mouth. ity of ORAL) 15:58: [place] [address] Medical Branch acetaminoph 2020-0 Yes Take by Un chhaya en (TYLENOL 4-01 mouth. ity of ORAL) 15:58: [place] [address] Medical Branch acetaminoph 2020-0 Yes Take by Un chhaya en (TYLENOL 4-01 mouth. ity of ORAL) 15:58: [place] [address] Medical Branch acetaminoph 2020-0 Yes Take by Un chhaya en (TYLENOL 4-01 mouth. ity of ORAL) 15:58: [place] [address] Medical Branch acetaminoph 2020-0 Yes Take by Un chhaya en (TYLENOL 4-01 mouth. ity of ORAL) 15:58: [place] [address] Medical Branch acetaminoph 2020-0 Yes Take by Un chhaya en (TYLENOL 4-01 mouth. ity of ORAL) 15:58: [place] [address] Medical Branch acetaminoph 2020-0 Yes Take by Un chhaya en (TYLENOL 4-01 mouth. ity of ORAL) 15:58: [place] [address] Medical Branch acetaminoph 2020-0 Yes Take by Un chhaya en (TYLENOL 4-01 mouth. ity of ORAL) 15:58: [place] [address] Medical Branch acetaminoph 2020-0 Yes Take by Un chhaya en (TYLENOL 4-01 mouth. ity of ORAL) 15:58: [address] acetaminoph 2020-0 Yes Take by Un chhaya en (TYLENOL 4-01 mouth. ity of ORAL) 15:58: [address] acetaminoph 2020-0 Yes Take by Un chhaya en (TYLENOL 4-01 mouth. ity of ORAL) 15:58: [address] acetaminoph 2020-0 Yes Take by Un chhaya en (TYLENOL 4-01 mouth. ity of ORAL) 15:58: [address] acetaminoph 2020-0 Yes Take by Un chhaya en (TYLENOL 4-01 mouth. ity of ORAL) 15:58: [address] acetaminoph 2020-0 Yes Take by Un chhaya en (TYLENOL 4-01 mouth. ity of ORAL) 15:58: [address] benzonatate 2020-0 2020- No [id number] 100mg Take 1 Univers (TESSALON 4- 04-12 capsule by itmaritza JOSSELYN) 100 00:00: 04:59 mouth 3 [place] mg capsule 00 :00 (three) Medica l times [place] daily for 10 days. benzonatate 2019-0 2020- No [id number] 100mg Take 1 Univers (TESSALON 4-01 04-12 capsule by itmaritza [facility]) 100 00:00: 04:59 mouth 3 [place] mg capsule 00 :00 (three) Medica l times [place] daily for 10 days. benzonatate 2019-0 2020- No [id number] 100mg Take 1 Univers (TESSALON 4- 04-12 capsule by itmaritza [facility]) 100 00:00: 04:59 mouth 3 [place] mg capsule 00 :00 (three) Medica l times [place] daily for 10 days. NUVARING 0 Yes [id number] 1{each} Insert 1 Univers (NUVARING) 3-24 Each into ity of 0.12-0.015 00:00: vagina [place] mg/24 hr 00 once every Medic al vaginal month. Branch insert Insert vaginally and leave in place for 3 consecutiv e weeks, then remove for 1 week. NUVARING 2019-0 Yes [id number] 1{each} Insert 1 Univers (NUVARING) 3-24 Each into ity of 0.12-0.015 00:00: vagina [place] mg/24 hr 00 once every Medic al vaginal month. Branch insert Insert vaginally and leave in place for 3 consecutiv e weeks, then remove for 1 week. NUVARING 2020-0 Yes [id number] 1{each} Insert 1 Univers (NUVARING) 3-24 Each into ity of 0.12-0.015 00:00: vagina [place] mg/24 hr 00 once every Medic al vaginal month. Branch insert Insert vaginally and leave in place for 3 consecutiv e weeks, then remove for 1 week. NUVARING 2020-0 Yes [id number] 1{each} Insert 1 Univers (NUVARING) 3-24 Each into ity of 0.12-0.015 00:00: vagina [place] mg/24 hr 00 once every Medic al vaginal month. Branch insert Insert vaginally and leave in place for 3 consecutiv e weeks, then remove for 1 week. NUVARING 2019-0 Yes [id number] 1{each} Insert 1 Univers (NUVARING) 3-24 Each into ity of 0.12-0.015 00:00: vagina [place] mg/24 hr 00 once every Medic al vaginal month. Branch insert Insert vaginally and leave in place for 3 consecutiv e weeks, then remove for 1 week. NUVARING 2020-0 Yes [id number] 1{each} Insert 1 Univers (NUVARING) 3-24 Each into ity of 0.12-0.015 00:00: vagina [place] mg/24 hr 00 once every Medic al vaginal month. Branch insert Insert vaginally and leave in place for 3 consecutiv e weeks, then remove for 1 week. NUVARING 2019-0 Yes [id number] 1{each} Insert 1 Univers (NUVARING) 3-24 Each into ity of 0.12-0.015 00:00: vagina [place] mg/24 hr 00 once every Medic al vaginal month. Branch insert Insert vaginally and leave in place for 3 consecutiv e weeks, then remove for 1 week. NUVARING 2020-0 Yes [id number] 1{each} Insert 1 Univers (NUVARING) 3-24 Each into ity of 0.12-0.015 00:00: vagina [place] mg/24 hr 00 once every Medic al vaginal month. Branch insert Insert vaginally and leave in place for 3 consecutiv e weeks, then remove for 1 week. NUVARING 2020-0 Yes [id number] 1{each} Insert 1 Univers (NUVARING) 3-24 Each into ity of 0.12-0.015 00:00: vagina [place] mg/24 hr 00 once every Medic al vaginal month. Branch insert Insert vaginally and leave in place for 3 consecutiv e weeks, then remove for 1 week. NUVARING 2019-0 Yes [id number] 1{each} Insert 1 Univers (NUVARING) 3-24 Each into ity of 0.12-0.015 00:00: vagina [place] mg/24 hr 00 once every Medic al vaginal month. Branch insert Insert vaginally and leave in place for 3 consecutiv e weeks, then remove for 1 week. NUVARING 2019-0 Yes [id number] 1{each} Insert 1 Univers (NUVARING) 3-24 Each into ity of 0.12-0.015 00:00: vagina [place] mg/24 hr 00 once every Medic al vaginal month. Branch insert Insert vaginally and leave in place for 3 consecutiv e weeks, then remove for 1 week. NUVARING 2019-0 Yes [id number] 1{each} Insert 1 Univers (NUVARING) 3-24 Each into ity of 0.12-0.015 00:00: vagina [place] mg/24 hr 00 once every Medic al vaginal month. Branch insert Insert vaginally and leave in place for 3 consecutiv e weeks, then remove for 1 week. NUVARING 2019-0 Yes [id number] 1{each} Insert 1 Univers (NUVARING) 3-24 Each into ity of 0.12-0.015 00:00: vagina [place] mg/24 hr 00 once every Medic al vaginal month. Branch insert Insert vaginally and leave in place for 3 consecutiv e weeks, then remove for 1 week. NUVARING 2019-0 Yes [id number] 1{each} Insert 1 Univers (NUVARING) 3-24 Each into ity of 0.12-0.015 00:00: vagina [place] mg/24 hr 00 once every Medic al vaginal month. Branch insert Insert vaginally and leave in place for 3 consecutiv e weeks, then remove for 1 week. NUVARING 2019-0 Yes [id number] 1{each} Insert 1 Univers (NUVARING) 3-24 Each into ity of 0.12-0.015 00:00: vagina [place] mg/24 hr 00 once every Medic al vaginal month. Branch insert Insert vaginally and leave in place for 3 consecutiv e weeks, then remove for 1 week. NUVARING 2020-0 Yes [id number] 1{each} Insert 1 Univers (NUVARING) 3-24 Each into ity of 0.12-0.015 00:00: vagina [place] mg/24 hr 00 once every Medic al vaginal month. Branch insert Insert vaginally and leave in place for 3 consecutiv e weeks, then remove for 1 week. NUVARING 2019-0 Yes [id number] 1{each} Insert 1 Univers (NUVARING) 3-24 Each into ity of 0.12-0.015 00:00: vagina [place] mg/24 hr 00 once every Medic al vaginal month. Branch insert Insert vaginally and leave in place for 3 consecutiv e weeks, then remove for 1 week. NUVARING 2019-0 Yes [id number] 1{each} Insert 1 Univers (NUVARING) 3-24 Each into ity of 0.12-0.015 00:00: vagina [place] mg/24 hr 00 once every Medic al vaginal month. Branch insert Insert vaginally and leave in place for 3 consecutiv e weeks, then remove for 1 week. NUVARING 2019-0 Yes [id number] 1{each} Insert 1 Univers (NUVARING) 3-24 Each into ity of 0.12-0.015 00:00: vagina [place] mg/24 hr 00 once every Medic al vaginal month. Branch insert Insert vaginally and leave in place for 3 consecutiv e weeks, then remove for 1 week. NUVARING 2019-0 Yes [id number] 1{each} Insert 1 Univers (NUVARING) 3-24 Each into ity of 0.12-0.015 00:00: vagina [place] mg/24 hr 00 once every Medic al vaginal month. Branch insert Insert vaginally and leave in place for 3 consecutiv e weeks, then remove for 1 week. NUVARING 2019-0 Yes [id number] 1{each} Insert 1 Univers (NUVARING) 3-24 Each into ity of 0.12-0.015 00:00: vagina [place] mg/24 hr 00 once every Medic al vaginal month. Branch insert Insert vaginally and leave in place for 3 consecutiv e weeks, then remove for 1 week. NUVARING 2020-0 Yes [id number] 1{each} Insert 1 Univers (NUVARING) 3-24 Each into ity of 0.12-0.015 00:00: vagina [place] mg/24 hr 00 once every Medic al vaginal month. Branch insert Insert vaginally and leave in place for 3 consecutiv e weeks, then remove for 1 week. NUVARING 2020-0 Yes [id number] 1{each} Insert 1 Univers (NUVARING) 3-24 Each into ity of 0.12-0.015 00:00: vagina [place] mg/24 hr 00 once every Medic al vaginal month. Branch insert Insert vaginally and leave in place for 3 consecutiv e weeks, then remove for 1 week. NUVARING 2020-0 Yes [id number] 1{each} Insert 1 Univers (NUVARING) 3-24 Each into ity of 0.12-0.015 00:00: vagina [place] mg/24 hr 00 once every Medic al vaginal month. Branch insert Insert vaginally and leave in place for 3 consecutiv e weeks, then remove for 1 week. NUVARING 2020-0 Yes [id number] 1{each} Insert 1 Univers (NUVARING) 3-24 Each into ity of 0.12-0.015 00:00: vagina [place] mg/24 hr 00 once every Medic al vaginal month. Branch insert Insert vaginally and leave in place for 3 consecutiv e weeks, then remove for 1 week. NUVARING 2020-0 Yes [id number] 1{each} Insert 1 Univers (NUVARING) 3-24 Each into ity of 0.12-0.015 00:00: vagina [place] mg/24 hr 00 once every Medic al vaginal month. Branch insert Insert vaginally and leave in place for 3 consecutiv e weeks, then remove for 1 week. NUVARING 2020-0 Yes [id number] 1{each} Insert 1 Univers (NUVARING) 3-24 Each into ity of 0.12-0.015 00:00: vagina [place] mg/24 hr 00 once every Medic al vaginal month. Branch insert Insert vaginally and leave in place for 3 consecutiv e weeks, then remove for 1 week. NUVARING 2020-0 Yes [id number] 1{each} Insert 1 Univers (NUVARING) 3-24 Each into ity of 0.12-0.015 00:00: vagina [place] mg/24 hr 00 once every Medic al vaginal month. Branch insert Insert vaginally and leave in place for 3 consecutiv e weeks, then remove for 1 week. NUVARING 2020-0 Yes [id number] 1{each} Insert 1 Univers (NUVARING) 3-24 Each into ity of 0.12-0.015 00:00: vagina [place] mg/24 hr 00 once every Medic al vaginal month. Branch insert Insert vaginally and leave in place for 3 consecutiv e weeks, then remove for 1 week. doxycycline 2020- No 100mg 100 mg, U nivers hyclate [...]
D uration of therapy: 72 hours cefTRIAXone 2019-0 2020- No 500mg 500 mg, U nivers (ROCEPHIN) 11-22 Intramuscu it y of injection 22:45: 21:51 [place], ONCE, [place] 500 mg 00 :00 1 dose, Medical 11/22/19 Branch at 1645, JUAN RAMON
Re ason for Anti-Infec tive: Empiric Therapy for Suspected Infection< br>Empiric Therapy Site: Urine
D uration of therapy: 72 hours metroNIDAZO 2020-0 Yes [id number] 500mg Take 1 Univers LE 500 mg 2-07 tablet by ity o f tablet 00:00: mouth 2 00 (two) Medical times Branch daily. metroNIDAZO 2020-0 Yes [id number] 500mg Take 1 Univers LE 500 mg 2-07 tablet by ity o f tablet 00:00: mouth 2 00 (two) Medical times Branch daily. metroNIDAZO 2020-0 Yes [id number] 500mg Take 1 Univers LE 500 mg 2-07 tablet by ity o f tablet 00:00: mouth 2 00 (two) Medical times Branch daily. metroNIDAZO 2020-0 Yes [id number] 500mg Take 1 Univers LE 500 mg 2-07 tablet by ity o f tablet 00:00: mouth 2 00 (two) Medical times Branch daily. metroNIDAZO 2020-0 Yes [id number] 500mg Take 1 [facility] LE 500 mg 2-07 tablet by ity o f tablet 00:00: mouth 2 00 (two) Medical times Branch daily. metroNIDAZO 2020-0 Yes [id number] 500mg Take 1 [facility] LE 500 mg 2-07 tablet by ity o f tablet 00:00: mouth 2 00 (two) Medical times Branch daily. metroNIDAZO 2020-0 Yes [id number] 500mg Take 1 [facility] LE 500 mg 2-07 tablet by ity o f tablet 00:00: mouth 2 00 (two) Medical times Branch daily. metroNIDAZO 2020-0 Yes [id number] 500mg Take 1 [facility] LE 500 mg 2-07 tablet by ity o f tablet 00:00: mouth 2 00 (two) Medical times Branch daily. metroNIDAZO 2020-0 Yes [id number] 500mg Take 1 [facility] LE 500 mg 2-07 tablet by ity o f tablet 00:00: mouth 2 [place] 00 (two) Medical times Branch daily. metroNIDAZO 2020-0 2020- No [id number] 500mg Take 1 [facility] LE 500 mg 2-07 04-01 tablet by ity of tablet 00:00: 00:00 mouth 2 [place] 00 :00 (two) Medical times Branch daily. doxycycline 2020- No [id number] 100mg Take 1 [facility] hyclate 100 11-22 capsule by i ty of mg capsule 00:00: 05:59 mouth 2 [place] 00 :00 (two) Medical times Branch daily for 14 days. doxycycline 2019- No [id number] 100mg Take 1 [facility] hyclate 100 11-22 capsule by i ty of mg capsule 00:00: 05:59 mouth 2 [place] 00 :00 (two) Medical times Branch daily for 14 days. doxycycline 2019- No [id number] 100mg Take 1 [facility] hyclate 100 11-22 capsule by i ty of mg capsule 00:00: 05:59 mouth 2 [place] 00 :00 (two) Medical times Branch daily for 14 days. doxycycline 2019- No [id number] 100mg Take 1 [facility] hyclate 100 11-22 capsule by i ty of mg capsule 00:00: 05:59 mouth 2 [place] 00 :00 (two) Medical times Branch daily for 14 days. doxycycline 2019- No [id number] 100mg Take 1 [facility] hyclate 100 11-22 capsule by i ty of mg capsule 00:00: 05:59 mouth 2 [place] 00 :00 (two) Medical times Branch daily for 14 days. acyclovir 2020- No [id number] 800mg Take 4 [facility] 200 mg 11-22- capsules ity of capsule 00:00: 05:59 by mouth 2 [place] 00 :00 (two) Medical times Branch daily for 5 days. proMETHazin 2020- No [id number] 12.5mg Take 1 [facility] e 12.5 mg 11-22 tablet by ity of tablet 00:00: 05:59 mouth [place] 00 :00 every 6 Medical (six) Branch hours as needed for Nausea and Vomiting (N/V) for up to 3 days. fluconazole 2020- No [id number] 150mg Take 1 [facility] 150 mg 11-22 tablet by [facility] tablet 00:00: 05:59 [place] 00 :[place] now for 1 Medical dose. Branch promethazin Yes [id number] 5mL Take 5 mL [facility] e-codeine 5-11 by mouth 4 ity of 6.25-10 00:00: (four) [place] mg/5 mL 00 times Medical syrup daily as Branch needed for Cough. loratadine Yes [id number] 10mg Take 1 [facility] 10 mg 5-11 tablet by ity of tablet 00:00: mouth [place] 00 daily. Medical Branch sod Yes [id number] 1{bottl Use 1 [facility] ers chlor-bicar 5-11 e} Bottle in ity of b-squeez 00:00: each [place] bottle 00 nostril 2 Medical (NEILMED (two) Branch SINUS RINSE times COMPLETE) daily. Use pkdv in hot shower 1 hour before bedtime promethazin Yes [id number] 5mL Take 5 mL [facility] e-codeine 5-11 by mouth 4 ity of 6.25-10 00:00: (four) [place] mg/5 mL 00 times Medical syrup daily as Branch needed for Cough. loratadine Yes [id number] 10mg Take 1 [facility] 10 mg 5-11 tablet by ity of tablet 00:00: mouth [place] 00 daily. Medical Branch sod Yes [id number] 1{bottl Use 1 Univ ers chlor-bicar 5-11 e} Bottle in ity of b-squeez 00:00: each [place] bottle 00 nostril 2 Medical (NEILMED (two) Branch SINUS RINSE times COMPLETE) daily. Use pkdv in hot shower 1 hour before bedtime promethazin 2020- No [id number] 5mL Take 5 mL [facility] e-codeine 5-11 02-14 by mouth 4 ity of 6.25-10 00:00: 00:00 (four) [place] mg/5 mL 00 :00 times Medical syrup daily as Branch needed for Cough. loratadine 2020- No [id number] 10mg Take 1 [facility] 10 mg 5-11 02-14 tablet by ity of tablet 00:00: 00:00 mouth [place] 00 :00 daily. Medical Branch sod 2020- No [id number] 1{bottl Use 1 Uni vers chlor-bicar 5-11 02-14 e} Bottle in it y of b-squeez 00:00: 00:00 each [place] bottle 00 :00 nostril 2 Medical (NEILMED (two) Branch SINUS RINSE times COMPLETE) daily. Use pkdv in hot shower 1 hour before bedtime promethazin 2019- No [id number] 5mL Take 5 mL [facility] e-codeine 5- 02-14 by mouth 4 ity of 6.25-10 00:00: 00:00 (four) [place] mg/5 mL 00 :00 times Medical syrup daily as Branch needed for Cough. loratadine 2019- No [id number] 10mg Take 1 [facility] 10 mg 5-11 02-14 tablet by ity of tablet 00:00: 00:00 mouth [place] 00 :00 daily. Medical Branch sod 2019- No [id number] 1{bottl Use 1 Uni vers chlor-bicar 5-08 17-14 e} Bottle in it y of b-squeez 00:00: 00:00 each [place] bottle 00 :00 nostril 2 Medical (NEILMED (two) Branch SINUS RINSE times COMPLETE) daily. Use pkdv in hot shower 1 hour before bedtime promethazin 2019- No [id number] 5mL Take 5 mL [facility] e-codeine 5-08 17-14 by mouth 4 ity of 6.25-10 00:00: 00:00 (four) [place] mg/5 mL 00 :00 times Medical syrup daily as Branch needed for Cough. loratadine 2019- No [id number] 10mg Take 1 [facility] 10 mg 5-11 02-14 tablet by ity of tablet 00:00: 00:00 mouth [place] 00 :00 daily. Medical Branch sod 2019- No [id number] 1{bottl Use 1 Uni vers chlor-bicar 02-23-14 [...] Pain (scale 4-6) with oral narcotics. 2016-10 2020- No 1{tbl} Take 1 [facility] ers vitamin 0-29 02-14 tablet by ity of w/FA tablet 00:00: 00:00 mouth [place] 00 :00 daily. [facility] Branch docusate 2016-10- No 240mg Take 1 Unive rs calcium 240 0-29 02-14 capsule by i ty of mg capsule 00:00: 00:00 mouth once [place] 00 :00 daily as Medical needed for Branch Constipati on. ferrous 2016-10 2020- No 325mg Take 1 Univer s [...] Pain (scale 4-6) with oral narcotics. 2016-10 2020- No 1{tbl} Take 1 [facility] ers vitamin 0-29 02-14 tablet by ity of w/FA tablet 00:00: 00:00 mouth [place] 00 :00 daily. Medical Branch docusate 2016-10 2020- No 240mg Take 1 Unive rs calcium 240 0-29 02-14 capsule by i ty of mg capsule 00:00: 00:00 mouth once [place] 00 :00 daily as Medical needed for Branch Constipati on. ferrous 2016-10 2020- No 325mg Take 1 Univer s sulfate 325 0-29 02-14 tablet by it y of mg (65 mg 00:00: 00:00 mouth 2 [place] iron[place] 00 :00 (two) Medical tablet times Branch daily. HYDROcodone 2016-10- No 1{tbl} Take 1 U nivers -acetaminop 0- 02-14 tablet by it y of hen [...] 240mg Take 1 Unive rs calcium 240 0--14 capsule by i ty of mg capsule 00:00: 00:00 mouth once [place] 00 :00 daily as Medical needed for Branch Constipati on. ferrous 2016-10 2020- No 325mg Take 1 Univer s sulfate 325 0-29 02-14 tablet by it y of mg (65 mg 00:00: 00:00 mouth 2 [place] iron[place] 00 :00 (two) Medical tablet times Branch daily. Immunizations Ordered Filled Immunization Date Status Comments [facility] e Immunization Name Name [facility] 2020-04-21 Completed [facility] 00:00:00 [facility] 2020-04-21 Completed [facility] of 00:00:00 [facility] 2020-04-21 Completed University of 00:00:00 [facility] HPV9 2020-04-21 Completed University of 00:00:00 [facility]9 2020-04-21 Completed University of 00:00:00 [facility] HPV9 2020-04-21 Completed University of 00:00:00 [facility] HPV9 2020-04-21 Completed University of 00:00:00 [facility] HPV9 2020-04-21 Completed University of 00:00:00 [facility] HPV9 2020-04-21 Completed University of 00:00:00 [facility] HPV9 2020-04-21 Completed University of 00:00:00 [facility] HPV9 2020-04-21 Completed University of 00:00:00 [facility] HPV9 2020-04-21 Completed University of 00:00:00 [facility] HPV9 2020-04-21 Completed University of 00:00:00 [facility] HPV9 2020-04-21 Completed University of 00:00:00 [facility] HPV9 2020-04-21 Completed University of 00:00:00 [facility] HPV9 2020-04-21 Completed University of 00:00:00 [facility] HPV9 2020-04-21 Completed University of 00:00:00 [facility] HPV9 2020-04-21 Completed University of 00:00:00 [facility] HPV9 2020-04-21 Completed University of 00:00:00 [facility] HPV9 2020-04-21 Completed University of 00:00:00 [facility] HPV9 2020-04-21 Completed University of 00:00:00 [facility] HPV9 2020-04-21 Completed University of 00:00:00 [facility] HPV9 2020-04-21 Completed University of 00:00:00 [facility] Influenza Virus 2019-11-29 Completed Universit y of Vaccine Quad .5 mL 00:00:00 [facility] IM 6+ MO Branch HPV9 2019-11-29 Completed University of 00:00:00 [facility] Influenza Virus 2019-11-29 Completed Universit y of Vaccine Quad .5 mL 00:00:00 [facility] IM 6+ MO Branch HPV9 2019-11-29 Completed University of 00:00:00 [facility] Influenza Virus 2019-11-29 Completed Universit y of Vaccine Quad .5 mL 00:00:00 [facility] IM 6+ MO Branch HPV9 2019-11-29 Completed University of 00:00:00 [facility] Influenza Virus 2019-11-29 Completed Universit y of Vaccine Quad .5 mL 00:00:00 [facility] IM 6+ MO Branch HPV9 2019-11-29 Completed University of 00:00:00 [facility] Influenza Virus 2019-11-29 Completed Universit y of Vaccine Quad .5 mL 00:00:00 [place] [facility] IM 6+ MO Branch HPV9 2019-11-29 Completed University of 00:00:00 [facility] Influenza Virus 2019-11-29 Completed Universit y of Vaccine Quad .5 mL 00:00:00 [place] [facility] IM 6+ MO Branch HPV9 2019-11-29 Completed University of 00:00:00 [facility] Influenza Virus 2019-11-29 Completed Universit y of Vaccine Quad .5 mL 00:00:00 [place] [facility] IM 6+ MO Branch HPV9 2019-11-29 Completed University of 00:00:00 [facility] Influenza Virus 2019-11-29 Completed Universit y of Vaccine Quad .5 mL 00:00:00 [place] [facility] IM 6+ MO Branch HPV9 2019-11-29 Completed University of 00:00:00 [facility] Influenza Virus 2019-11-29 Completed Universit y of Vaccine Quad .5 mL 00:00:00 [place] [facility] 6+ MO Branch HPV9 2019-11-29 Completed University of 00:00:00 [facility] Influenza Virus 2019-11-29 Completed Universit y of Vaccine Quad .5 mL 00:00:00 [place] [facility] 6+ MO Branch HPV9 2019-11-29 Completed University of 00:00:00 [facility] Influenza Virus 2019-11-29 Completed Universit y of Vaccine Quad .5 mL 00:00:00 [place] [facility] 6+ MO Branch HPV9 2019-11-29 Completed University of 00:00:00 [facility] Influenza Virus 2019-11-29 Completed Universit y of Vaccine Quad .5 mL 00:00:00 [place] [facility] IM 6+ MO Branch HPV9 2019-11-29 Completed University of 00:00:00 [facility] Influenza Virus 2019-11-29 Completed Universit y of Vaccine Quad .5 mL 00:00:00 [place] [facility] IM 6+ MO Branch HPV9 2019-11-29 Completed University of 00:00:00 [facility] Influenza Virus 2019-11-29 Completed Universit y of Vaccine Quad .5 mL 00:00:00 [place] [facility] IM 6+ MO Branch HPV9 2019-11-29 Completed University of 00:00:00 [facility] Influenza Virus 2019-11-29 Completed Universit y of Vaccine Quad .5 mL 00:00:00 [place] [facility] IM 6+ MO Branch HPV9 2019-11-29 Completed University of 00:00:00 [facility] Influenza Virus 2019-11-29 Completed Universit y of Vaccine Quad .5 mL 00:00:00 [place] [facility] IM 6+ MO Branch HPV9 2019-11-29 Completed University of 00:00:00 [facility] Influenza Virus 2019-11-29 Completed Universit y of Vaccine Quad .5 mL 00:00:00 [place] [facility] IM 6+ MO Branch HPV9 2019-11-29 Completed University of 00:00:00 [facility] Influenza Virus 2019-11-29 Completed Universit y of Vaccine Quad .5 mL 00:00:00 [place] [facility] IM 6+ MO Branch HPV9 2019-11-29 Completed University of 00:00:00 [facility] Influenza Virus 2019-11-29 Completed Universit y of Vaccine Quad .5 mL 00:00:00 [place] [facility] 6+ MO Branch HPV9 2019-11-29 Completed University of 00:00:00 [facility] Influenza Virus 2019-11-29 Completed Universit y of Vaccine Quad .5 mL 00:00:00 [place] [facility] 6+ MO Branch HPV9 2019-11-29 Completed University of 00:00:00 [facility] Influenza Virus 2019-11-29 Completed Universit y of Vaccine Quad .5 mL 00:00:00 [place] [facility] 6+ MO Branch HPV9 2019-11-29 Completed University of 00:00:00 [facility] Influenza Virus 2019-11-29 Completed Universit y of Vaccine Quad .5 mL 00:00:00 [facility] 6+ MO Branch HPV9 2019-11-29 Completed University of 00:00:00 [facility] Influenza Virus 2019-11-29 Completed Universit y of Vaccine Quad .5 mL 00:00:00 [place] [facility] 6+ MO Branch HPV9 2019-11-29 Completed University of 00:00:00 [facility] Influenza Virus 2019-11-29 Completed Universit y of Vaccine Quad .5 mL 00:00:00 [place] [facility] 6+ MO Branch HPV9 2019-11-29 Completed University of 00:00:00 [facility] Influenza Virus 2019-11-29 Completed Universit y of Vaccine Quad .5 mL 00:00:00 [place] [facility] 6+ MO Branch HPV9 2019-11-29 Completed University of 00:00:00 [facility] Influenza Virus 2019-11-29 Completed Universit y of Vaccine Quad .5 mL 00:00:00 [place] [facility] IM 6+ MO Branch HPV9 2019-11-29 Completed University of 00:00:00 [facility] Influenza Virus 2019-11-29 Completed Universit y of Vaccine Quad .5 mL 00:00:00 [place] [facility] IM 6+ MO Branch HPV9 2019-11-29 Completed University of 00:00:00 [facility] Influenza Virus 2019-11-29 Completed Universit y of Vaccine Quad .5 mL 00:00:00 [place] [facility] IM 6+ MO Branch HPV9 2019-11-29 Completed University of 00:00:00 [facility] Influenza Virus 2019-11-29 Completed Universit y of Vaccine Quad .5 mL 00:00:00 [place] [facility] IM 6+ MO Branch HPV9 2019-11-29 Completed University of 00:00:00 [facility] Influenza Virus 2019-11-29 Completed Universit y of Vaccine Quad .5 mL 00:00:00 [place] [facility] 6+ MO Branch HPV9 2019-11-29 Completed University of 00:00:00 [facility] Influenza Virus 2019-11-29 Completed Universit y of Vaccine Quad .5 mL 00:00:00 [place] [facility] IM 6+ MO Branch HPV9 2019-11-29 Completed University of 00:00:00 [facility] Influenza Virus 2019-11-29 Completed Universit y of Vaccine Quad .5 mL 00:00:00 [place] [facility] 6+ MO Branch HPV9 2019-11-29 Completed University of 00:00:00 [facility] Influenza Virus 2019-11-29 Completed Universit y of Vaccine Quad .5 mL 00:00:00 [place] [facility] IM 6+ MO Branch HPV9 2019-11-29 Completed University of 00:00:00 [facility] Influenza Virus 2019-11-29 Completed Universit y of Vaccine Quad .5 mL 00:00:00 [place] [facility] 6+ MO Branch HPV9 2019-11-29 Completed University of 00:00:00 [facility] Influenza Virus 2019-11-29 Completed Universit y of Vaccine Quad .5 mL 00:00:00 [place] [facility] 6+ MO Branch HPV9 2019-11-29 Completed University of 00:00:00 [facility] HPV9 2017-08-13 Completed University of 00:00:00 [facility] Rho (d) Immune 2017-08-13 Completed University of Globulin 00:00:00 [facility] Influenza Virus 2017-08-13 Completed Universit y of Vaccine Quad IM 3+ 00:00:00 [facility] HPV9 2017-08-13 Completed University of 00:00:00 [facility] Rho (d) Immune 2017-08-13 Completed University of Globulin 00:00:00 [facility] Influenza Virus 2017-08-13 Completed Universit y of Vaccine Quad IM 3+ 00:00:00 [facility] HPV9 2017-08-13 Completed University of 00:00:00 [facility] Rho (d) Immune 2017-08-13 Completed University of Globulin 00:00:00 [facility] Influenza Virus 2017-08-13 Completed Universit y of Vaccine Quad IM 3+ 00:00:00 [facility] HPV9 2017-08-13 Completed University of 00:00:00 [facility] Rho (d) Immune 2017-08-13 Completed University of Globulin 00:00:00 [facility] Influenza Virus 2017-08-13 Completed Universit y of Vaccine Quad IM 3+ 00:00:00 [facility] HPV9 2017-08-13 Completed University of 00:00:00 [facility] Rho (d) Immune 2017-08-13 Completed University of Globulin 00:00:00 [facility] Influenza Virus 2017-08-13 Completed Universit y of Vaccine Quad IM 3+ 00:00:00 [facility] HPV9 2017-08-13 Completed University of 00:00:00 [facility] Rho (d) Immune 2017-08-13 Completed University of Globulin 00:00:00 [facility] Influenza Virus 2017-08-13 Completed Universit y of Vaccine Quad IM 3+ 00:00:00 [facility] HPV9 2017-08-13 Completed University of 00:00:00 [facility] Rho (d) Immune 2017-08-13 Completed University of Globulin 00:00:00 [facility] Influenza Virus 2017-08-13 Completed Universit y of Vaccine Quad IM 3+ 00:00:00 [facility] HPV9 2017-08-13 Completed University of 00:00:00 [facility] Rho (d) Immune 2017-08-13 Completed University of Globulin 00:00:00 [facility] Influenza Virus 2017-08-13 Completed Universit y of Vaccine Quad IM 3+ 00:00:00 [facility] HPV9 2017-08-13 Completed University of 00:00:00 [facility] Rho (d) Immune 2017-08-13 Completed University of Globulin 00:00:00 [facility] Influenza Virus 2017-08-13 Completed Universit y of Vaccine Quad IM 3+ 00:00:00 [facility] HPV9 2017-08-13 Completed University of 00:00:00 [facility] Rho (d) Immune 2017-08-13 Completed University of Globulin 00:00:00 [facility] Influenza Virus 2017-08-13 Completed Universit y of Vaccine Quad IM 3+ 00:00:00 [facility] HPV9 2017-08-13 Completed University of 00:00:00 [facility] Rho (d) Immune 2017-08-13 Completed University of Globulin 00:00:00 [facility] Influenza Virus 2017-08-13 Completed Universit y of Vaccine Quad IM 3+ 00:00:00 [facility] HPV9 2017-08-13 Completed University of 00:00:00 [facility] Rho (d) Immune 2017-08-13 Completed University of Globulin 00:00:00 [facility] Influenza Virus 2017-08-13 Completed Universit y of Vaccine Quad IM 3+ 00:00:00 [facility] HPV9 2017-08-13 Completed University of 00:00:00 [facility] Rho (d) Immune 2017-08-13 Completed University of Globulin 00:00:00 [facility] Influenza Virus 2017-08-13 Completed Universit y of Vaccine Quad IM 3+ 00:00:00 [facility] HPV9 2017-08-13 Completed University of 00:00:00 [facility] Rho (d) Immune 2017-08-13 Completed University of Globulin 00:00:00 [facility] Influenza Virus 2017-08-13 Completed Universit y of Vaccine Quad IM 3+ 00:00:00 [facility] HPV9 2017-08-13 Completed University of 00:00:00 [facility] Rho (d) Immune 2017-08-13 Completed University of Globulin 00:00:00 [facility] Influenza Virus 2017-08-13 Completed Universit y of Vaccine Quad IM 3+ 00:00:00 [facility] HPV9 2017-08-13 Completed University of 00:00:00 [facility] Rho (d) Immune 2017-08-13 Completed University of Globulin 00:00:00 [facility] Influenza Virus 2017-08-13 Completed Universit y of Vaccine Quad IM 3+ 00:00:00 [facility] HPV9 2017-08-13 Completed University of 00:00:00 [facility] Rho (d) Immune 2017-08-13 Completed University of Globulin 00:00:00 [facility] Influenza Virus 2017-08-13 Completed Universit y of Vaccine Quad IM 3+ 00:00:00 [facility] HPV9 2017-08-13 Completed University of 00:00:00 [facility] Rho (d) Immune 2017-08-13 Completed University of Globulin 00:00:00 [facility] Influenza Virus 2017-08-13 Completed Universit y of Vaccine Quad IM 3+ 00:00:00 [facility] HPV9 2017-08-13 Completed University of 00:00:00 [facility] Rho (d) Immune 2017-08-13 Completed University of Globulin 00:00:00 [facility] Influenza Virus 2017-08-13 Completed Universit y of Vaccine Quad IM 3+ 00:00:00 [facility] HPV9 2017-08-13 Completed University of 00:00:00 [facility] Rho (d) Immune 2017-08-13 Completed University of Globulin 00:00:00 [facility] Influenza Virus 2017-08-13 Completed Universit y of Vaccine Quad IM 3+ 00:00:00 [facility] HPV9 2017-08-13 Completed University of 00:00:00 [facility] Rho (d) Immune 2017-08-13 Completed University of Globulin 00:00:00 [facility] Influenza Virus 2017-08-13 Completed Universit y of Vaccine Quad IM 3+ 00:00:00 [facility] HPV9 2017-08-13 Completed University of 00:00:00 [facility] HPV9 2017-08-13 Completed University of 00:00:00 [facility] Rho (d) Immune 2017-08-13 Completed University of Globulin 00:00:00 [facility] Influenza Virus 2017-08-13 Completed Universit y of Vaccine Quad IM 3+ 00:00:00 [facility] Rho (d) Immune 2017-08-13 Completed University of Globulin 00:00:00 [facility] HPV9 2017-08-13 Completed University of 00:00:00 [facility] Rho (d) Immune 2017-08-13 Completed University of Globulin 00:00:00 [facility] Influenza Virus 2017-08-13 Completed Universit y of Vaccine Quad IM 3+ 00:00:00 [facility] Influenza Virus 2017-08-13 Completed Universit y of Vaccine Quad IM 3+ 00:00:00 [facility] HPV9 2017-08-13 Completed University of 00:00:00 [facility] Rho (d) Immune 2017-08-13 Completed University of Globulin 00:00:00 [facility] Influenza Virus 2017-08-13 Completed Universit y of Vaccine Quad IM 3+ 00:00:00 [facility] HPV9 2017-08-13 Completed University of 00:00:00 [facility] Rho (d) Immune 2017-08-13 Completed University of Globulin 00:00:00 [facility] Influenza Virus 2017-08-13 Completed Universit y of Vaccine Quad IM 3+ 00:00:00 [facility] HPV9 2017-08-13 Completed University of 00:00:00 [facility] Rho (d) Immune 2017-08-13 Completed University of Globulin 00:00:00 [facility] Influenza Virus 2017-08-13 Completed Universit y of Vaccine Quad IM 3+ 00:00:00 [facility] HPV9 2017-08-13 Completed University of 00:00:00 [facility] Rho (d) Immune 2017-08-13 Completed University of Globulin 00:00:00 [facility] Influenza Virus 2017-08-13 Completed Universit y of Vaccine Quad IM 3+ 00:00:00 [facility] HPV9 2017-08-13 Completed University of 00:00:00 [facility] Rho (d) Immune 2017-08-13 Completed University of Globulin 00:00:00 [facility] Influenza Virus 2017-08-13 Completed Universit y of Vaccine Quad IM 3+ 00:00:00 [facility] HPV9 2017-08-13 Completed University of 00:00:00 [facility] Rho (d) Immune 2017-08-13 Completed University of Globulin 00:00:00 [facility] Influenza Virus 2017-08-13 Completed Universit y of Vaccine Quad IM 3+ 00:00:00 [facility] HPV9 2017-08-13 Completed University of 00:00:00 [facility] Rho (d) Immune 2017-08-13 Completed University of Globulin 00:00:00 [facility] Influenza Virus 2017-08-13 Completed Universit y of Vaccine Quad IM 3+ 00:00:00 [facility] HPV9 2017-08-13 Completed University of 00:00:00 [facility] Rho (d) Immune 2017-08-13 Completed University of Globulin 00:00:00 [facility] Influenza Virus 2017-08-13 Completed Universit y of Vaccine Quad IM 3+ 00:00:00 [facility] HPV9 2017-08-13 Completed University of 00:00:00 [facility] Rho (d) Immune 2017-08-13 Completed University of Globulin 00:00:00 [facility] Influenza Virus 2017-08-13 Completed Universit y of Vaccine Quad IM 3+ 00:00:00 [facility] HPV9 2017-08-13 Completed University of 00:00:00 [facility] Rho (d) Immune 2017-08-13 Completed University of Globulin 00:00:00 [facility] Influenza Virus 2017-08-13 Completed Universit y of Vaccine Quad IM 3+ 00:00:00 [facility] HPV9 2017-08-13 Completed University of 00:00:00 [facility] Rho (d) Immune 2017-08-13 Completed University of Globulin 00:00:00 [facility] Influenza Virus 2017-08-13 Completed Universit y of Vaccine Quad IM 3+ 00:00:00 [facility] HPV9 2017-08-13 Completed University of 00:00:00 [facility] Rho (d) Immune 2017-08-13 Completed University of Globulin 00:00:00 [facility] Influenza Virus 2017-08-13 Completed Universit y of Vaccine Quad IM 3+ 00:00:00 [facility] HPV9 2017-08-13 Completed University of 00:00:00 [facility] Rho (d) Immune 2017-08-13 Completed University of Globulin 00:00:00 [facility] Influenza Virus 2017-08-13 Completed Universit y of Vaccine Quad IM 3+ 00:00:00 [facility] Tdap 2017-08-08 Completed University of 00:00:00 [facility] Tdap 2017-08-08 Completed University of 00:00:00 [facility] Tdap 2017-08-08 Completed University of 00:00:00 [facility] Tdap 2017-08-08 Completed University of 00:00:00 [facility] Tdap 2017-08-08 Completed University of 00:00:00 [facility] Tdap 2017-08-08 Completed University of 00:00:00 [facility] Tdap 2017-08-08 Completed University of 00:00:00 [facility] Tdap 2017-08-08 Completed University of 00:00:00 [facility] Tdap 2017-08-08 Completed University of 00:00: [facility] Tdap 2017-08-08 Completed University of 00:00:00 [facility] Tdap 2017-08-08 Completed University of 00:00:00 [facility] Tdap 2017-08-08 Completed University of 00:00:00 [facility] TDAP 2017-08-08 Completed University of 00:00:00 [facility] TDAP 2017-08-08 Completed University of 00:00:00 [facility] TDAP 2017-08-08 Completed University of 00:00:00 [facility] TDAP 2017-08-08 Completed University of 00:00:00 [facility] TDAP 2017-08-08 Completed University of 00:00:00 [facility] TDAP 2017-08-08 Completed University of 00:00:00 [facility] TDAP 2017-08-08 Completed University of 00:00:00 [facility] TDAP 2017-08-08 Completed University of 00:00:00 [facility] TDAP 2017-08-08 Completed University of 00:00:00 [facility] Tdap 2017-08-08 Completed University of 00:00:00 [facility] TDAP 2017-08-08 Completed University of 00:00:00 [facility] TDAP 2017-08-08 Completed University of 00:00:00 [facility] Branch TDAP 2017-08-08 Completed University of 00:00:00 [facility] TDAP 2017-08-08 Completed University of 00:00:00 [facility] TDAP 2017-08-08 Completed University of 00:00:00 [facility] TDAP 2017-08-08 Completed University of 00:00:00 [facility] TDAP 2017-08-08 Completed University of 00:00:00 [facility] TDAP 2017-08-08 Completed University of 00:00:00 [facility] TDAP 2017-08-08 Completed University of 00:00:00 [facility] TDAP 2017-08-08 Completed University of 00:00:00 [facility] TDAP 2017-08-08 Completed University of 00:00:00 [facility] TDAP 2017-08-08 Completed University of 00:00:00 [facility] TDAP 2017-08-08 Completed University of 00:00:00 [facility] TDAP 2017-08-08 Completed University of 00:00: [facility] Tdap 2017-08-08 Completed University of 00:00:00 [facility] Influenza Virus 2016-02-29 Completed Universit y of Vaccine Quad IM 3+ 00:00:00 [facility] Influenza Virus 2016-02-29 Completed Universit y of Vaccine Quad IM 3+ 00:00:00 [facility] Influenza Virus 2016-02-29 Completed Universit y of Vaccine Quad IM 3+ 00:00:00 [facility] Influenza Virus 2016-02-29 Completed Universit y of Vaccine Quad IM 3+ 00:00:00 [facility] Influenza Virus 2016-02-29 Completed Universit y of Vaccine Quad IM 3+ 00:00:00 [facility] Influenza Virus 2016-02-29 Completed Universit y of Vaccine Quad IM 3+ 00:00:00 [facility] Influenza Virus 2016-02-29 Completed Universit y of Vaccine Quad IM 3+ 00:00:00 [facility] Influenza Virus 2016-02-29 Completed Universit y of Vaccine Quad IM 3+ 00:00:00 [facility] Influenza Virus 2016-02-29 Completed Universit y of Vaccine Quad IM 3+ 00:00:00 [facility] Influenza Virus 2016-02-29 Completed Universit y of Vaccine Quad IM 3+ 00:00:00 [facility] Influenza Virus 2016-02-29 Completed Universit y of Vaccine Quad IM 3+ 00:00:00 [facility] Influenza Virus 2016-02-29 Completed Universit y of Vaccine Quad IM 3+ 00:00:00 [facility] Influenza Virus 2016-02-29 Completed Universit y of Vaccine Quad IM 3+ 00:00:00 [facility] Influenza Virus 2016-02-29 Completed Universit y of Vaccine Quad IM 3+ 00:00:00 [facility] Influenza Virus 2016-02-29 Completed Universit y of Vaccine Quad IM 3+ 00:00:00 [facility] Influenza Virus 2016-02-29 Completed Universit y of Vaccine Quad IM 3+ 00:00:00 [facility] Influenza Virus 2016-02-29 Completed Universit y of Vaccine Quad IM 3+ 00:00:00 [facility] Influenza Virus 2016-02-29 Completed Universit y of Vaccine Quad IM 3+ 00:00:00 [facility] Influenza Virus 2016-02-29 Completed Universit y of Vaccine Quad IM 3+ 00:00:00 [facility] Influenza Virus 2016-02-29 Completed Universit y of Vaccine Quad IM 3+ 00:00:00 [facility] Influenza Virus 2016-02-29 Completed Universit y of Vaccine Quad IM 3+ 00:00:00 [facility] Influenza Virus 2016-02-29 Completed Universit y of Vaccine Quad IM 3+ 00:00:00 [facility] Influenza Virus 2016-02-29 Completed Universit y of Vaccine Quad IM 3+ 00:00:00 [facility] Influenza Virus 2016-02-29 Completed Universit y of Vaccine Quad IM 3+ 00:00:00 [facility] Influenza Virus 2016-02-29 Completed Universit y of Vaccine Quad IM 3+ 00:00:00 [facility] Influenza Virus 2016-02-29 Completed Universit y of Vaccine Quad IM 3+ 00:00:00 [facility] Influenza Virus 2016-02-29 Completed Universit y of Vaccine Quad IM 3+ 00:00:00 [facility] Influenza Virus 2016-02-29 Completed Universit y of Vaccine Quad IM 3+ 00:00:00 [facility] Influenza Virus 2016-02-29 Completed Universit y of Vaccine Quad IM 3+ 00:00:00 [facility] Influenza Virus 2016-02-29 Completed Universit y of Vaccine Quad IM 3+ 00:00:00 [facility] Influenza Virus 2016-02-29 Completed Universit y of Vaccine Quad IM 3+ 00:00:00 [facility] Influenza Virus 2016-02-29 Completed Universit y of Vaccine Quad IM 3+ 00:00:00 [facility] Influenza Virus 2016-02-29 Completed Universit y of Vaccine Quad IM 3+ 00:00:00 [facility] Influenza Virus 2016-02-29 Completed Universit y of Vaccine Quad IM 3+ 00:00:00 [facility] Influenza Virus 2016-02-29 Completed Universit y of Vaccine Quad IM 3+ 00:00:00 [facility] Influenza Virus 2016-02-29 Completed Universit y of Vaccine Quad IM 3+ 00:00:00 [facility] Influenza Virus 2016-02-29 Completed Universit y of Vaccine Quad IM 3+ 00:00:00 [facility] Branch Vital Signs Vital Name Observation Time Observation Value Comments Source Systolic blood 2021-02-08 20:51:00 119 mm[Hg] Univer sity of pressure [facility] Diastolic blood 2021-02-08 20:51:00 76 mm[Hg] Unive rsity of pressure [facility] Heart rate 2021-02-08 20:51:00 83 /min Universi ty of [facility] Body temperature 2021-02-08 20:51:00 36.78 Heidi Univ ersity of [facility] Respiratory rate 2021-02-08 20:51:00 16 /min Univ ersity of [facility] Body height 2021-02-08 20:51:00 160 cm Universi ty of [facility] Body weight 2021-02-08 20:51:00 96.645 kg Universi ty of [facility] BMI 2021-02-08 20:51:00 37.74 kg/m2 Universi ty of [facility] Systolic blood 2021-02-08 20:51:00 119 mm[Hg] Univer sity of pressure [facility] Diastolic blood 2021-02-08 20:51:00 76 mm[Hg] Unive rsity of pressure [facility] Heart rate 2021-02-08 20:51:00 83 /min Universi ty of [facility] Body temperature 2021-02-08 20:51:00 36.78 Heidi Univ ersity of [facility] Respiratory rate 2021-02-08 20:51:00 16 /min Univ ersity of [facility] Body height 2021-02-08 20:51:00 160 cm Universi ty of [facility] Body weight 2021-02-08 20:51:00 96.645 kg Universi ty [facility] BMI 2021-02-08 20:51:00 37.74 kg/m2 [facility] Systolic blood 2020-10-27 16:34:00 134 mm[Hg] Univer sity of pressure [facility] Diastolic blood 2020-10-27 16:34:00 84 mm[Hg] Unive rsity of pressure [facility] Heart rate 2020-10-27 16:34:00 78 /min Universi ty [facility] Body temperature 2020-10-27 16:34:00 36.72 Heidi Univ ersity of [facility] Respiratory rate 2020-10-27 16:34:00 16 /min Univ ersity of [facility] Body height 2020-10-27 16:34:00 160 cm Universi ty of [facility] Body weight 2020-10-27 16:34:00 88.225 kg Universi ty of [facility] BMI 2020-10-27 16:34:00 34.45 kg/m2 Universi ty of [facility] Systolic blood 2020-10-22 19:00:00 113 mm[Hg] Univer sity of pressure [facility] Diastolic blood 2020-10-22 19:00:00 64 mm[Hg] Unive rsity of [facility] Heart rate 2020-10-22 19:00:00 85 /min Universi ty of [facility] Body temperature 2020-10-22 19:00:00 37.39 Heidi Univ ersity of [facility] Respiratory rate 2020-10-22 19:00:00 18 /min Univ ersity of [facility] Oxygen saturation 2020-10-22 19:00:00 100 /min Uni versity of in Arterial blood [facility] by Pulse oximetry [place] Body weight 2020-10-22 14:53:00 86.183 kg Universi ty of [facility] BMI 2020-10-22 14:53:00 33.66 kg/m2 Universi ty of [facility] Systolic blood 2020-10-19 19:38:00 108 mm[Hg] Univer sity of pressure [facility] Diastolic blood 2020-10-19 19:38:00 80 mm[Hg] Unive rsity of pressure [facility] Heart rate 2020-10-19 19:38:00 91 /min Universi ty of [facility] Body temperature 2020-10-19 19:38:00 36.78 Heidi Univ ersity of [facility] Respiratory rate 2020-10-19 19:38:00 16 /min Univ ersity of [facility] Body height 2020-10-19 19:38:00 160 cm Universi ty of [facility] Body weight 2020-10-19 19:38:00 86.212 kg Universi ty of [facility] BMI 2020-10-19 19:38:00 33.67 kg/m2 Universi ty of [facility] Systolic blood 2020-09-30 21:38:00 125 mm[Hg] Univer sity of pressure [facility] Diastolic blood 2020-09-30 21:38:00 83 mm[Hg] Unive rsity of pressure [facility] Heart rate 2020-09-30 21:38:00 68 /min Universi ty of [facility] Body temperature 2020-09-30 21:38:00 36.39 Heidi Univ ersity of [facility] Body weight 2020-09-30 21:38:00 88.451 kg Universi ty of [facility] BMI 2020-09-30 21:38:00 34.54 kg/m2 Universi ty of [facility] Systolic blood 2020-09-30 21:00:00 125 mm[Hg] Univer sity of pressure [facility] Diastolic blood 2020-09-30 21:00:00 83 mm[Hg] Unive rsity of pressure [facility] Heart rate 2020-09-30 21:00:00 68 /min Universi ty of [facility] Body temperature 2020-09-30 21:00:00 36.44 Heidi Univ ersity of [facility] Respiratory rate 2020-09-30 21:00:00 16 /min Univ ersity of [facility] Body height 2020-09-30 21:00:00 160 cm Universi ty of [facility] Body weight 2020-09-30 21:00:00 88.508 kg Universi ty of [facility] BMI 2020-09-30 21:00:00 34.56 kg/m2 Universi ty of [facility] Systolic blood 2020-09-16 21:58:00 128 mm[Hg] Univer sity of pressure [facility] Diastolic blood 2020-09-16 21:58:00 76 mm[Hg] Unive rsity of pressure [facility] Heart rate 2020-09-16 21:58:00 88 /min Universi ty of [facility] Body temperature 2020-09-16 21:58:00 37.06 Heidi Univ ersity of [facility] Respiratory rate 2020-09-16 21:58:00 16 /min Univ ersity of [facility] Body height 2020-09-16 21:58:00 160 cm Universi ty of [facility] Body weight 2020-09-16 21:58:00 89.018 kg Universi ty of [facility] BMI 2020-09-16 21:58:00 34.76 kg/m2 Universi ty of [facility] Systolic blood 2020-04-21 14:57:00 118 mm[Hg] Univer sity of pressure [facility] Diastolic blood 2020-04-21 14:57:00 85 mm[Hg] Unive rsity of [facility] Heart rate 2020-04-21 14:57:00 70 /min Universi ty of [facility] Body temperature 2020-04-21 14:57:00 36.5 Heidi Univ ersity of [facility] Respiratory rate 2020-04-21 14:57:00 14 /min Univ ersity of [facility] Body height 2020-04-21 14:57:00 160 cm Universi ty of [facility] Body weight 2020-04-21 14:57:00 95.255 kg Universi ty of [facility] BMI 2020-04-21 14:57:00 37.20 kg/m2 Universi ty of [facility] Systolic blood 2020-01-15 15:57:00 119 mm[Hg] Univer sity of [facility] Diastolic blood 2020-01-15 15:57:00 81 mm[Hg] Unive rsity of [facility] Heart rate 2020-01-15 15:57:00 87 /min Universi ty of [facility] Body temperature 2020-01-15 15:57:00 37 Heidi Univ ersity of [facility] Respiratory rate 2020-01-15 15:57:00 16 /min Univ ersity of [facility] Body weight 2020-01-15 15:57:00 95.255 kg last weight Universi ty of [facility] BMI 2020-01-15 15:57:00 37.20 kg/m2 Universi ty of [facility] Oxygen saturation 2020-01-15 15:57:00 97 /min Uni versity of in Arterial blood [facility] by Pulse oximetry Branch Systolic blood 2019-11-29 19:22:00 123 mm[Hg] Univer sity of pressure [facility] Diastolic blood 2019-11-29 19:22:00 87 mm[Hg] Unive rsity of [facility] Heart rate 2019-11-29 19:22:00 88 /min Universi ty of [facility] Body temperature 2019-11-29 19:22:00 36.39 Heidi [facility] Respiratory rate 2019-11-29 19:22:00 16 /min [facility] height 2019-11-29 19:22:00 160 cm Universi ty [facility] Body weight 2019-11-29 19:22:00 95.425 kg Universi [facility] BMI 2019-11-29 19:22:00 37.27 kg/m2 Universi [facility] Systolic blood 2019-11-22 22:23:28 135 mm[Hg] Univer sity of pressure [facility] Diastolic blood 2019-11-22 22:23:28 82 mm[Hg] Unive rsity of [facility] Heart rate 2019-11-22 22:23:28 81 /min [facility] Respiratory rate 2019-11-22 22:23:28 14 /min [facility] Oxygen saturation 2019-11-22 22:23:28 99 /min Uni versity of in Arterial blood [facility] by Pulse oximetry [place] Body temperature 2019-11-22 21:01:00 36.94 Heidi [facility] Body height 2019-11-22 21:01:00 160 cm Universi [facility] Body weight 2019-11-22 21:01:00 81.647 kg [facility] BMI 2019-11-22 21:01:00 31.89 kg/m2 [facility] Procedures Procedure Date / Time Performed Performing Clinician [facility] e ASSIGNMENT OF BENEFITS 2021-02-08 20:18:47 Doctor Unassigned, No General acute hospital LACTIC ACID WHOLE 2020-10-22 19:16:00 Mike Yan [facility] ABDOMEN PELVIS W 2020-10-22 18:40:48 Mike Yan [facility] POCT TEST 2020-10-22 17:43:00 Mike Yan [facility] LIPASE 2020-10-22 16:58:00 Mike Yan [facility] MAGNESIUM 2020-10-22 16:58:00 Mike Yan [facility] COMP. METABOLIC PANEL 2020-10-22 16:58:00 Mike Yan [facility] ([id number]) Medical [place] CBC WITH DIFF 2020-10-22 16:58:00 Mike Yan [facility] URINALYSIS 2020-10-22 16:58:00 Mike Yan [facility] DISCLOSURE AND 2020-10-19 06:01:00 Doctor Unassigned, No [facility] CONSENT, MEDICAL AND Name Medical [facility] SURGICAL PROCEDURES POCT TEST 2020-09-30 21:40:00 [facility] TEST 2020-09-16 22:00:00 Melanie Laurent [facility] GARDASIL 9 (HPV 9V) 2020-04-21 15:04:36 Kirstie Koch [facility] VACCINE [facility] POCT GRP A STREP 2020-01-15 18:22:00 Tonja Watkins [facility] (MOLECULAR) [facility] GARDASIL 9 (HPV 9V) 2019-11-29 19:44:40 Kirstie Koch [facility] VACCINE [facility] FLU VACC ([phone]), 2019-11-29 19:44:40 Kirstie Koch [facility] 6+ MONTHS, IM, QUAD Medical Bran ch POCT URINALYSIS W/O 2019-11-29 19:26:00 Kirstie Koch [facility] SPECIFIC GRAVITY [facility] POCT TEST 2019-11-22 21:16:00 Violetta Baeza [facility] URINALYSIS 2019-11-22 21:13:00 Violetta Baeza [facility] NOTICE OF PRIVACY 2019-11-22 20:55:00 Doctor Unassigned, No Univ [facility] ASSIGNMENT OF BENEFITS 2019-11-22 20:01:56 Doctor Unassigned, No General acute hospital [id number] CONSENT 2019-11-22 06:01:00 Doctor Unassigned, No Unive [facility] Encounters Start End Encounter Admission Attending Care Care Encounter Source Date/Time Date/Time Type Type Clinicians Facility Department ID 2021-08-14 Emergency [facility] [id number] Univers 15:36:52 [facility] 2022-01-07 2022-01-07 Outpatient Arabella WATKINS [facility] [id number] Univers 08:00:00 08:00:00 TONJA [id number] [facility] 2022-01-07 2022-01-07 Outpatient Arabella WATKINS [facility] [id number] Univers 08:00:00 08:00:00 TONJA maritza [facility] 2021-12-20 2021-12-20 Outpatient Arabella AUGUSTINE [facility] [id number] Univers 13:00:00 13:00:00 MARNI [id number] [facility] 2021-12-20 2021-12-20 Outpatient Arabella AUGUSTINE [facility] [id number] Univers 13:00:00 13:00:00 MARNI maritza [facility] 2021-10-19 2021-10-19 Outpatient [facility] [id number] [place] 09:42:00 09:42:00 [facility]104 [facility] 2021-10-19 2021-10-19 Outpatient [facility] [id number] [place] 09:42:00 09:42:00 0203 [facility] 2021-10-19 2021-10-19 Outpatient [facility] [id number] [place] 09:42:00 09:42:00 [id number] [facility] 2021-10-19 2021-10-19 Outpatient [facility] [id number] [place] 09:42:00 09:42:00 0228 [facility] 2021-10-06 2021-10-06 Outpatient [facility] [id number] [place] 05:06:00 05:06:00 1222 [facility] 2021-10-05 2021-10-05 Outpatient [facility] [id number] [place] 11:36:00 11:36:00 1221 [facility] 2021-06-14 2021-06-14 Outpatient [facility] [id number] [place] 03:09:00 03:09:00 [id number] [facility] 2021-06-14 2021-06-14 Outpatient [facility] [id number] [place] 03:09:00 03:09:00 [id number] [facility] 2021-06-14 2021-06-14 Outpatient Harley, [facility] [id number] 00:00:00 00:00:00 Tanya [id number] 2021-06-09 2021-06-09 Outpatient [facility] [id number] [place] 11:51:00 11:51:00 [id number] [facility] 2021-02-09 2021-02-09 Outpatient R OMAR [facility] [id number] Univers 10:30:00 10:30:00 OMAR [id number] ity o [facility] 2021-02-08 2021-02-08 Office Mehran, [facility] [id number] Univers 15:20:35 16:19:56 Visit Melanie Bhandari [employer]OTARY [employer]ING MACHINE OPERATOR [id number] [facility] [id number] Andrei as MATERNAL [id number] Med ical & CHILD [address] [place] [address] 2021-02-08 2021-02-08 [facility] [id number] 15:20:35 16:19:56 Visit Melanie C ROTARY SLICING MACHINE OPERATOR [id number] REGIONAL [id number] MATERNAL [id number] & CHILD [address] [place] [address] 2021-02-08 2021-02-08 Outpatient R MEHRAN [facility] [id number] Univers 15:30:00 15:30:00 MELANIE [id number] ity o [facility] 2021-02-08 2021-02-08 Outpatient R MEHRAN, [facility] [id number] Univers 15:30:00 15:30:00 MELANIE barnett o f [facility] 2021-02-08 2021-02-08 Orders Doctor CHRISTI [id number] 00:00:00 00:00:00 Only Unassigned, MAHENDRA [id number] ity of [place] [facility] [id number] Andrei as [id number] [address] 2021-01-28 2021-01-28 Outpatient [facility] 2020 [place] 10:55:00 10:55:00 0415 [facility] 2021-01-28 2021-01-28 Outpatient [facility] 2020 [place] 10:55:00 10:55:00 0421 [facility] 2021-01-27 2021-01-27 Outpatient [facility] 2020 [place] 06:05:00 06:05:00 0414 [facility] 2021-01-27 2021-01-27 Outpatient Harley, [facility] [id number] 00:00:00 00:00:00 Tanya [id number] 2021-01-27 2021-01-27 Outpatient [place], [facility] [id number] 00:00:00 00:00:00 Tanya [id number] 2021-01-27 2021-01-27 Outpatient [place], [facility] [id number] 00:00:00 00:00:00 Tanya [id number] 2021-01-18 2021-01-18 Outpatient [facility] 2020 [place] 10:40:00 10:40:00 [id number] [facility] 2021-01-05 2021-01-05 Patient ITALO Godwin [id number] Univers 00:00:00 00:00:00 Outreach Saurav WALKER [id number] i ty [facility] [id number] Devaughn RIZO [id number] [address] 2021-01-04 2021-01-04 Outpatient [facility] [id number] [place] 02:54:00 02:54:00 [id number] [facility] 2021-01-04 2021-01-04 Outpatient WATERS_S [facility] [id number] [place] 02:54:00 02:54:00 0330 [facility] 2021-01-04 2021-01-04 Outpatient Har[place], [facility] [id number] c-2 00:00:00 00:00:00 Tanya [id number] 2020-12-22 2020-12-22 Outpatient R [facility] [id number] -[id number] Univers 13:15:00 13:15:00 [id number] [facility] 2020-12-08 2020-12-08 Outpatient R AKINSIPE, [facility] [id number] [id number]-20 Univers 15:15:00 15:15:00 MELANIE [id number] [facility] 2020-12-08 2020-12-08 Outpatient R AKINSIPE, [facility] [id number] Univers 15:15:00 15:15:00 MELANIE [facility] 2020-11-30 2020-11-30 Outpatient R AKINSIPE, [facility] [id number] [id number]-20 Univers 14:15:00 14:15:00 MEALNIE [id number] [facility] 2020-11-30 2020-11-30 Outpatient R AKINSIPE, [facility] [id number] Univers 14:15:00 14:15:00 MELANIE [facility] 2020-11-24 2020-11-24 Outpatient R AKINSIPE, [facility] [id number] [id number]-20 Univers 13:00:00 13:00:00 MELANIE [id number] y o [facility] 2020-11-24 2020-11-24 Outpatient R AKINSIPE, [facility] [id number] Univers 13:00:00 13:00:00 MELANIE barnett o f [facility] 2020-10-27 2020-10-27 Office [facility] [id number] Univers 10:27:14 11:17:41 Visit Melanie C ROTARY SLICING MACHINE OPERATOR [id number] ity of [facility] [id number] Andrei as MATERNAL [phone] [facility] & CHILD [address] [place] [address] 2020-10-27 2020-10-27 Outpatient R MEHRAN, [facility] [id number] [id number]-20 Univers 10:45:00 10:45:00 MELANIE [id number] anibal o [facility] 2020-10-27 2020-10-27 [facility] [id number] Univers 10:45:00 10:45:00 MELANIE barnett o [facility] 2020-10-26 2020-10-26 Telephone [facility] 1.2.840.114 [id number] Univers 00:00:00 00:00:00 Melanie C ROTARY SLICING MACHINE OPERATOR [id number] ity of [facility] [id number] Andrei as MATERNAL [phone] [address] 2020-10-23 2020-10-23 Telephone [facility] 1.2.840.114 [id number] Univers 00:00:00 00:00:00 Melanie C ROTARY SLICING MACHINE OPERATOR [id number] ity of [facility] [id number] Andrei as MATERNAL [id number] [facility] & [address] 2020-10-22 2020-10-22 Emergency Yandy, K [facility] 1.2.840.114 [id number] Univers 09:02:00 15:25:00 Sheba [place] 350.1.13.10 i ty [facility] 4.2.7.2.[place] [id number] [address] 2020-10-22 2020-10-22 Outpatient R MEHRAN, [facility] [id number] 2N-20 Univers 12:45:00 12:45:00 MELANIE [id number] itmaritza o gilles [facility] 2020-10-22 2020-10-22 [facility] 1.2.840.114 [id number] Univers 00:00:00 00:00:00 Melanie Bhandari ROTARY SLICING MACHINE OPERATOR 350.1.13.10 ity of [facility] 4.2.7.2.686 Andrei as MATERNAL [phone] [facility] & CHILD [address] [place] [address] 2020-10-19 2020-10-19 Office Jaylashelly [facility] 1.2.152.323 [id number] Univers 13:26:02 14:20:50 Visit Melanie Bhandari ROTARY SLICING MACHINE OPERATOR 350.1.13.10 ity of [facility] 4.2.7.2.686 Andrei as MATERNAL [phone] [address] 2020-10-19 2020-10-19 [facility] [id number] 2N-20 Univers 13:00:00 13:00:00 MELANIE [id number] anibal o [facility] 2020-10-19 2020-10-19 [facility] [id number] Univers 13:00:00 13:00:00 MELANIE barnett zari [facility] 2020-10-19 2020-10-19 Orders Doctor CHRISTI 1.2.840.114 [id number] Univers 00:00:00 00:00:00 Only Unassigned, MAHENDRA 350.1.13.10 ity of [place] [facility] 42.7.2.686 Andrei as [phone] [address] 2020-10-12 2020-10-12 Telephone [facility] 1.2.840.114 [id number] Univers 00:00:00 00:00:00 Melanie Bhandari ROTARY SLICING MACHINE OPERATOR 350.1.13.10 ity of [facility] 4.2.7.2.686 Andrei as MATERNAL [phone] [facility] & [address] 2020-09-30 2020-09-30 [facility] 1.2 .840.114 [id number] Univers 15:09:54 15:24:54 Visit Melanie Laurent ROTARY SLICING MACHINE OPERATOR 350.1.13. 10 ity [facility] [id number] Andrei as MATERNAL [phone] [facility] & [address] 2020-09-30 2020-09-30 [facility] 1.2.081.990 [id number] Univers 14:42:28 15:12:28 Visit [facility] ROTARY SLICING MACHINE OPERATOR 350.1.13.10 ity of [facility] [id number] Andrei as MATERNAL [id number] [facility] & CHILD [address] [place] [address] 2020-09-30 2020-09-30 [facility] [id number] 2N-20 Univers 15:00:00 15:00:00 MELANIE [id number] anibal o [facility] 2020-09-30 2020-09-30 Outpatient R [facility] [id number] Univers 15:00:00 15:00:00 MELANIE barnett o [facility] 2020-09-17 2020-09-17 Laboratory Lab, [facility] Fam Pob I [facility] 1.2. 840.114 [id number] Univers 15:24:33 15:44:33 Only Tonja Watkins [place] 350.1.13.10 [facility] 4.2.7.2.686 Andrei as Professio [phone] [address] Office [facility] 2020-09-17 2020-09-17 Outpatient R ROLAND [facility] [id number] Univers 15:20:00 15:20:00 TONJA [facility] 2020-09-17 2020-09-17 Outpatient R [facility] [id number] -[id number] Univers 11:00:00 11:00:00 [id number] [facility] 2020-09-16 2020-09-[address] [facility] [id number] [id number] Univers 15:45:11 16:13:07 Visit Melanie Elisabet ROTARY SLICING MACHINE OPERATOR 350.1.13.10 ity [facility] 4.2.7.2.686 Andrei as MATERNAL [id number] [facility] CHILD [address] [place] [address] 2020-09-16 2020-09-16 Outpatient R AKINPEYTON, [facility] [id number] 2N-20 Univers 16:00:00 16:00:00 MELANIE ity o f [facility] 2020-09-16 2020-09-16 Outpatient R ZIAPE, [facility] [id number] Univers 16:00:00 16:00:00 MELANIE ity o f [facility] 2020-04-21 2020-04-21 [facility] 1.2 .840.114 [id number] Univers 09:44:13 09:59:13 Visit Melanie Laurent ROTARY SLICING MACHINE OPERATOR 350.1.13. 10 ity of [facility] 4.2.7.2.686 Andrei as MATERNAL [phone] Med ical & CHILD [address] [place] [address] 2020-04-21 2020-04-21 Outpatient R [facility] [id number] Univers 09:30:00 09:30:00 ity [facility] 2020-04-21 2020-04-21 Outpatient R AKINCHIDIPE, [facility] [id number] Univers 09:30:00 09:30:00 MELANIEJANICE barnett o f [facility] 2020-04-07 2020-04-07 Outpatient R [facility] [id number] Univers 14:00:00 14:00:00 [id number] ity [facility] 2020-04-07 2020-04-07 Outpatient R [facility] [id number] Univers 14:00:00 14:00:00 ity of [facility] 2020-02-28 2020-02-28 Outpatient R [facility] [id number] Univers 14:30:00 14:30:00 [id number] ity [facility] 2020-01-30 2020-01-30 [facility] [id number] Univers 00:00:00 00:00:00 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7.2.686 [facility] [id number] [facility] [address] [facility] 2020-01-15 2020-01-15 Urgent Pob1, Acute Care Clinic [facility] 1. 2.840.114 [id number] Univers 10:46:12 11:06:12 Care Roland, Tonja [facility] 350.1.13.10 ity of [place] 4.2.7.2.686 Andrei as Professio [phone] Hi dical nal [address] [facility] 2020-01-15 2020-01-15 Outpatient R [facility] [id number] Univers 11:00:00 11:00:00 ity [facility] 2020-01-15 2020-01-15 [facility] [id number] Univers 11:00:00 11:00:00 TONJA ity [facility] 2020-01-15 2020-01-15 Telephone Pob1, Acute [facility] 1.2.840.114 [id number] Univers 00:00:00 00:00:00 Care Clinic Health 350.1.13.10 ity of [place] 4.2.7.2.686 Andrei as Professio [phone] Hi dical nal [address] [facility] 2020-01-07 2020-01-07 Outpatient R [facility] [id number] Univers 14:00:00 14:00:00 [id number] ity [facility] 2020-01-07 2020-01-07 Outpatient R [facility] [id number] Univers 14:00:00 14:00:00 ity [facility] 2020-01-07 2020-01-07 Telephone August [facility] 1.2.840.114 [id number] Univers 00:00:00 00:00:00 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 350.1.13.10 it y of [facility] 4.2.7.2.686 Andrei as MATERNAL [phone] Med ical & CHILD [address] [place] [address] 2020-01-05 2020-01-05 Telephone [facility] 1.2.840.114 [id number] Univers 00:00:00 00:00:00 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 350.1.13.10 it y of [facility] 4.2.7.2.686 Andrei as MATERNAL [phone] Med ical & CHILD [address] [place] [address] 2019-12-13 2019-12-13 [facility] [id number] Univers 14:30:00 14:30:00 KIRSTIE barnett [facility] 2019-12-11 2019-12-11 Telephone [facility] 1.2.840.114 [id number] Univers 00:00:00 00:00:00 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 350.1.13.10 it y of [facility] 4.2.7.2.686 Andrei as MATERNAL [phone] Med ical & CHILD [address] [place] [address] 2019-12-02 2019-12-02 Telephone [facility] 1.2.840.114 [id number] Univers 00:00:00 00:00:00 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 350.1.13.10 it y of [facility] 4.2.7.2.686 Andrei as MATERNAL [id number] Med ical & CHILD [address] [place] [address] 2019-11-29 2019-11-29 [facility] [id number] Univers 13:15:00 14:20:38 KIRSTIE barnett [facility] 2019-11-29 2019-11-29 Office [facility] 1.2.084.558 [id number] Univers 13:03:57 14:20:38 Visit 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 350.1.13.10 it y of [facility] 4.2.7.2.686 Andrei as MATERNAL [phone] Med ical & CHILD [address] [place] [address] 2019-11-22 2019-11-22 Emergency Chacresencio, [facility] 1.2.840.114 [id number] Univers 15:03:06 16:48:00 Violetta Shirley 350.1.13.10 ity of [place] 4.2.7.2.686 [facility] [phone] [facility] [address] 2019-11-22 2019-11-22 Orders Doctor CHRISTI 1.2.840.114 [id number] Univers 00:00:00 00:00:00 Only Unassigned, MAHENDRA 350.1.13.10 ity of [place] [facility] 4.2.7.2.686 Andrei [id number] [facility] [address] Results Test Description Test Time Test Comments Results Result Comments Source Lactic Acid Whole Blood 2020-10-22 19:21:00 Test Item Value Reference Range Interpretation Comme nts LACTIC ACID (test code = 1619427479) 1.62 mmol/L [facility] W [id number] 18:46:09CT Abdomen and Pelvis with intravenous contrast. [...] andminimal fluid in cul-de-sac consistentwith physiologic changes. [facility], Radiant Results Inft User -10/22/2020 12:47 PM [...] and minimal fluid in cul-de-sac consistentwith physiologic changes.[facility] [id number] 18:22:00 Test Item Value Reference Range Interpretation Comments APPEARANCE (test code = Cloudy Clear A 4212276485) COLOR (test code = Megan Yellow A 3844342770) PH (test code = 4.8-8.0 8471925167) SP GRAVITY (test code = 1.003-1.030 7499147066) GLU U QUAL (test code = Normal Normal 2829240787) BLOOD (test code = Negative Negative 7348240589) KETONES (test code = 5 mg/dL Negative A 4778447294) PROTEIN (test code = 30 mg/dL Negative A 2887-8) UROBILIN (test code = 2.0 mg/dL Normal A 0551123673) BILIRUBIN (test code = Negative Negative 2544453032) NITRITE (test code = Negative Negative 8013199202) LEUK HALLIE (test code = 500/uL Negative A 6644596210) RBC/HPF (test code = See_Comment H [Autom ated message] 1278744727) The system [employer] generated this result transmit franklin reference range : 0 - 3 HPF. The refe rence range was not u sed to interpret th is result as normal/abnormal . WBC/HPF (test code = >182 See_Comment H [Autom ated message] 3034918706) The system [employer] generated this result transmit franklin reference range : 0 - 5 HPF. The refe rence range was not u sed to interpret th is result as normal/abnormal . BACTERIA (test code = Moderate Negative A 9366049942) MUCOUS (test code = Slight Negative LPF A 2706218448) AMORPHOUS (test code = Rare Rare HPF 0743975769) SQ EPITH (test code = HPF 1134831421) WBC CLUMPS (test code = See_Comment H [Au tomated message] 4826607348) The system [employer] generated this result transmit franklin reference range : <=1 HPF. The refere nce range was not u sed to interpret th is result as normal/abnormal . Lab Interpretation (test Abnormal code = 49458-6) [facility]. METABOLIC PANEL (06769)2020-10-22 18:11:00 Test Item Value Reference Range Interpretation Comments NA (test code = 133 mmol/L 135-145 L 4341282441) K (test code = 3.9 mmol/L 3.5-5 9251132196) CL (test code = 98 mmol/L 98-108 1543181738) CO2 TOTAL (test code = 25 mmol/L 23-31 8124683030) AGAP (test code = 2-16 8786478919) BUN (test code = 13 mg/dL 7-23 8843039013) GLUCOSE (test code = 150 mg/dL 70-110 H 5377143745) CREATININE (test code = 0.84 mg/dL 0.5-1.04 2248242594) TOTAL BILI (test code = 1.7 mg/dL 0.1-1.1 H 6076004366) CALCIUM (test code = 9.5 mg/dL 8.6-10.6 5697432932) T PROTEIN (test code = 8.0 g/dL 6.3-8.2 4153567609) ALBUMIN (test code = 4.7 g/dL 3.5-5 2997082695) ALK PHOS (test code = 79 U/L 34-122 8653130958) ALTv (test code = 18 U/L 5-35 1742-6) AST(SGOT) (test code = 18 U/L 13-40 2627058720) eGFR Calculation mL/min/1.73m2 (Non-) (test code = 7346596199) eGFR Calculation mL/min/1.73m2 () (test code = 4699529378) KARTHIK (test code = KARTHIK) Association of [...] tests). Lab Interpretation Abnormal (test code = 04154-0) [facility] 18:11:00 Test Item Value Reference Range Interpretation Comments MAGNESIUM (test code = 4786139379) 1.9 mg/dL 1.7-2.4 Lab Interpretation (test code = Normal 87784-6) [facility] 18:10:00 Test Item Value Reference Range Interpretation Comments LIPASE (test code = 4170590827) 45 U/L 0-220 Lab Interpretation (test code = Normal 79343-1) [facility] WITH [id number] 18:04:00 Test Item Value Reference Range Interpretation Comments WBC (test code = See_Comment H [Automated 8090-2) message] The system which generated this result transmit franklin reference range : 4.30 - 11.10 10*3/?L. The reference range was not used to interpret this result as normal/abnormal . RBC (test code = See_Comment [Automated 379-8) message] The system which generated this result [...] RDW-SD (test code = 45.0 fL 39-49.9 46669-8) RDW-CV (test code = 14.1 % 12-15.5 788-0) PLT (test code = See_Comment L [Automated 777-3) message] The system which generated this result transmit franklin reference range : 166 - 358 10*3/ ?L. The reference range was not u sed to interpret th is result as normal/abnormal . MPV (test code = 12.8 fL 9.5-12.9 35929-3) NRBC/100 WBC (test See_Comment [Automat ed code = 6574440552) message] The system which generated this result transmit franklin reference range : 0.0 - 10.0 /100 WBCs. The reference range was not used to interpret this result as normal/abnormal . NRBC x10^3 (test code <0.01 See_Comment [Auto mated = 8004269340) message] The system which generated this result transmit franklin reference range : 10*3/?L. The reference range was not used to interpret this result as normal/abnormal . GRAN MAT (NEUT) % 92.7 % (test code = 770-8) IMM GRAN % (test code 1.30 % = 2022104102) LYMPH % (test code = 3.5 % 736-9) MONO % (test code = 2.4 % 5905-5) EOS % (test code = 0.0 % 713-8) BASO % (test code = 0.1 % 706-2) GRAN MAT x10^3(ANC) 17.42 10*3/uL 1.88-7.09 H (test code = 0369236858) IMM GRAN x10^3 (test 0.25 10*3/uL 0-0.06 H code = 0852076437) LYMPH x10^3 (test code 0.65 10*3/uL 1.32-3.29 L = 731-0) MONO x10^3 (test code 0.46 10*3/uL 0.33-0.92 = 742-7) EOS x10^3 (test code = <0.03 0.03-0.39 L 711-2) BASO x10^3 (test code <0.03 0.01-0.07 = 704-7) Lab Interpretation Abnormal (test code = 14453-7) [facility] [id number] 17:43:00 Test Item Value Reference Range Interpretation Comments POCT PREG (test code = 1605) negative On board controls acceptable with present C Line (test code = 3574) POCT PREG LOT # (test code = 3575) [id number] POCT PREG TEST DATE (test 06/15/2022 code = 3576) Lab Interpretation (test code = Normal 21993-1) [facility] [id number] 21:41:00 Test Item Value Reference Range Interpretation Comments POCT PREG (test code = 1605) Negative On board controls acceptable with C Yes Line (test code = 3574) POCT PREG LOT # (test code = 3575) POCT PREG TEST DATE (test code = 3576) [facility] [id number] 21:41:00 Test Item Value Reference Range Interpretation Comments POCT PREG (test code = 1605) Negative On board controls acceptable with C Yes Line (test code = 3574) POCT PREG LOT # (test code = 3575) POCT PREG TEST DATE (test code = 3576) [facility] [id number] 22:00:00 Test Item Value Reference Range Interpretation Comments POCT PREG (test code = 1605) Negative On board controls acceptable with C Yes Line (test code = 3574) POCT PREG LOT # (test code = 3575) POCT PREG TEST DATE (test code = 3576) [facility] [id number] 22:00:00 Test Item Value Reference Range Interpretation Comments POCT PREG (test code = 1605) Negative On board controls acceptable with C Yes Line (test code = 3574) POCT PREG LOT # (test code = 3575) POCT PREG TEST DATE (test code = 3576) [facility] GRP A STREP (MOLECULAR)2020-01-15 18:32:00 Test Item Value Reference Range Interpretation Comments POCT GP A STREP (test code = neg Negative - Negative 47988-8) Lab Interpretation (test code = Normal 57856-3) [facility] URINALYSIS W/O SPECIFIC [id number] 19:29:00 Test Item Value Reference Range Interpretation [...] Negative Lab Interpretation (test code = Abnormal 08282-5) [facility] URINALYSIS W/O SPECIFIC [id number] 19:29:00 Test Item Value Reference Range Interpretation [...] Negative Lab Interpretation (test code = Abnormal 90036-2) [facility] URINALYSIS W/O SPECIFIC [id number] 19:29:00 Test Item Value Reference Range Interpretation [...] Negative Lab Interpretation (test code = Abnormal 39909-2) [facility]2020[facility] 21:33:00 Test Item Value Reference Range Interpretation Comments APPEARANCE (test code = Cloudy Clear A 2664539932) COLOR (test code = Yellow Yellow 2378828056) PH (test code = 4.8-8.0 9658926041) SP GRAVITY (test code = 1.003-1.030 1144574790) GLU U QUAL (test code = Normal Normal 3587560020) BLOOD (test code = 1+ Negative A 1146869223) KETONES (test code = Negative Negative 4576965440) PROTEIN (test code = Negative Negative 2887-8) UROBILIN (test code = Normal Normal 9229126873) BILIRUBIN (test code = Negative Negative 0938543387) NITRITE (test code = Negative Negative 8249294631) LEUK HALLIE (test code = 500/uL Negative A 0711417102) RBC/HPF (test code = See_Comment H [Autom ated message] 3254310824) The system [employer] generated this result transmitted ref erence range: 0 - 3 HP F. The reference range was not used to int erpret this result as normal/abnormal . WBC/HPF (test code = >182 See_Comment H [Autom ated message] 9394729103) The system [employer] generated this result transmitted ref erence range: 0 - 5 HP F. The reference range was not used to int erpret this result as normal/abnormal . BACTERIA (test code = Few Negative A 6047595305) MUCOUS (test code = Slight Negative LPF A 4510069414) SQ EPITH (test code = HPF 7176235236) Lab Interpretation (test Abnormal code = 57362-2) [facility] [id number] 21:16:00 Test Item Value Reference Range Interpretation Comments POCT PREG (test code = 1605) Negative On board controls acceptable with Present C Line (test code = 3574) POCT PREG LOT # (test code = 3575) [id number] POCT PREG TEST DATE (test 2021-05-15 code = 3576) Lab Interpretation (test code = Normal 28220-7) [facility]"
--- NOTE | 2022-01-14 09:44 | ER ---
Nurse's Notes [facility] Name: Janet Pyle Age: 26 yrs Sex: Female : 1995 Arrival Date: 01/14/2022 Time: 08:28 Bed 11 Private MD: Diagnosis: Influenza due to identified novel influenza A virus with other manifestations Presentation: 01/14 09:20 Acuity: TORI 4 iw Historical: - Allergies: 09:19 NKDA; iw - Home Meds: 09:19 None [Active]; iw - PMHx: 09:19 None; iw - PSHx: 09:19 None; iw - Family history:: not pertinent. - Hospitalizations: : No recent hospitalization is reported. ED Course: 08:28 Patient arrived in ED. am2 08:30 Olman Zhou MD is Attending Physician. rn 09:19 Krystal Rose RN is Primary Nurse. iw 09:20 Triage completed. iw Administered Medications: No medications were administered Outcome: 09:43 Discharge ordered by . rn 10:29 Patient left the ED. iw Signatures: Krystal Rose, RN RN Olman Zhuo MD MD rn Moreno, Amanda am2
--- NOTE | 2022-01-14 09:44 | EDPHYS ---
Physician Documentation [facility] Name: Janet Pyle Age: 26 yrs Sex: Female : 1995 Arrival Date: 01/14/2022 Time: 08:28 Bed 11 Private MD: ED Physician Olman Zhou HPI: 01/14 08:46 This 26 yrs old Female presents to ER via Unassigned with complaints of Cough, Sore rn Throat, chills. 08:46 The patient or guardian reports cough, flu symptoms, low-grade fever, myalgias. Onset: rn The symptoms/episode began/occurred yesterday. Severity of symptoms: At their worst the symptoms were mild, in the emergency department the symptoms are unchanged. Modifying factors: The symptoms are alleviated by nothing, the symptoms are aggravated by nothing. Associated signs and symptoms: Pertinent positives: fever, rhinorrhea, sore throat, Pertinent negatives: chest pain, diarrhea. The patient has not experienced similar symptoms in the past. The patient has not recently seen a physician. Pt reports subjective fever, chills, myalgias, runny nose, sore throat. Child sick this week with similar symptoms. No sob. . Historical: - Allergies: 09:19 NKDA; iw - Home Meds: 09:19 None [Active]; iw - PMHx: 09:19 None; iw - PSHx: 09:19 None; iw - Family history:: not pertinent. - Hospitalizations: : No recent hospitalization is reported. 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 Exam: 08:46 Constitutional: This is a well developed, well nourished patient who is awake, alert, rn and in no acute distress. Ambulatory to room without difficulty Head/Face: Normocephalic, atraumatic. Eyes: Periorbital areas with no swelling, redness, or edema. ENT: + clear nasal congestion, no stridor, mild pharyngeal erythema, no exudate, MMM Neck: Trachea midline, no masses palpated, and no cervical lymphadenopathy. Supple, full range of motion without nuchal rigidity, or vertebral point tenderness. No Meningismus. Cardiovascular: Regular rate and rhythm. No pulse deficits. Respiratory: No increased work of breathing, no retractions or nasal flaring. Skin: Warm, dry MS/ Extremity: Pulses equal, no cyanosis. Neuro: Awake and alert, GCS 15 MDM: 08:35 Patient medically screened. rn 09:43 Differential Diagnosis: Bronchitis Influenza Upper Respiratory Infection Viral rn Syndrome. Data reviewed: vital signs, nurses notes, lab test result(s), and as a result, I will discharge patient. Counseling: I had a detailed discussion with the patient and/or guardian regarding: the historical points, exam findings, and any diagnostic results supporting the discharge/admit diagnosis, lab results, the need for outpatient follow up, to return to the emergency department if symptoms worsen or persist or if there are any questions or concerns that arise at home. Special discussion: I discussed with the patient/guardian in detail that at this point there is no indication for admission to the hospital. It is understood, however, that if the symptoms persist or worsen the patient needs to return immediately for re-evaluation. 01/14 08:40 Order name: Flu; Complete Time: 09:43 rn 01/14 08:40 Order name: Strep; Complete Time: 09:43 rn 01/14 09:27 Order name: Throat Culture EDMS Administered Medications: No medications were administered Disposition Summary: 01/14/22 09:43 Discharge Ordered Location: Home rn Problem: new rn Symptoms: have improved rn Condition: Stable rn Diagnosis - Influenza due to identified novel influenza A virus with other manifestations rn Followup: rn - With: Private Physician - When: As needed - Reason: Recheck today's complaints, Re-evaluation by your physician Discharge Instructions: - Discharge Summary Sheet rn - Influenza, Adult rn Forms: - Medication Reconciliation Form rn - Thank You Letter rn - Work release form 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
== END 2022-01-14 10:29 | disposition home or self-care (01) ==
LOC: ER 08:28
DX: J10.89 Influenza due to other identified influenza virus with other manifestations (principal); Z20.822 Contact with and (suspected) exposure to COVID-19
CPT/HCPCS: 87070; 87081; 87804; 99281